=== PATIENT | male | born 1945 | race Hispanic/Latino ===

== ENCOUNTER 2021-08-17 10:34 | Inpatient (IN) | payer OTHER ==
--- OUTSIDE RECORDS SUMMARY | 2021-08-17 10:37 | XMS REPORT | Continuity of Care Document ---
:1945 Author Organization [facility] t Address [facility] [address] [place] [address] Care Team Providers Name Role Phone PCP, DOES NOT HAVE A Primary Care Physician Unavailable Doctor Unassigned, Name Attending Clinician Unavailable Nellie LR, A Attending Clinician Unavailable ASAMOA Attending Clinician Unavailable ASAMOA Attending Clinician Unavailable Vu BAHENA Attending Clinician ASAMOA Admitting Clinician Unavailable Payers Payer Name Policy Type Policy Number Effective Date Expiration Date S ource Problems Condition Condition Condition Status Onset Resolution Last Treating Co mments Source Name Details Category Date Date Treatment Clinician Date Gastroente Gastroente Disease Active 2020-04 U nivers ritis ritis 16 ity of 00:00: [address] Allergies, Adverse Reactions, Alerts Allergy Allergy Status Severity Reaction(s) Onset Inactive Treating Comm ents Source Name Type Date Date Clinician [place] DRUG Active Med Hives 2020-04 Univers IN INGREDI 2-16 ity of 00:00: [address] Penicill Drug Active Hives 2020-04 Univers in Allergy -16 ity of 00:00: [address] Social History Social Habit Start Date Stop Date Quantity Comments Source Exposure to Not sure University SARS-CoV-2 [facility] (event) Branch Tobacco Comment 2021-04-02 2021-04-02 pt quit smoking Univ ersity of 00:00:00 00:00:00 48 years ago [facility] [place] Tobacco use and 2021-03-31 2021-03-31 Never used Universit y of exposure 00:00:00 00:00:00 [facility] Sex Ass[birth year] Universit y of 00:00:00 00:00:00 [facility] Smoking Status Start Date Stop Date Source Former smoker 2021-03-31 00:00:00 2021-03-31 00:00:00 [facility] Medications Ordered Filled Start Stop Current Ordering Indication Dosage Frequency Signature Comments Components Source Medication Medication Date Date Medication? Clinician (SIG) Name Name andrew 2020-04- No [id number] 325mg Take 1 Un devaughn sulfate 325 2-18 -18 tablet by it y of mg (65 mg 00:00: 05:59 mouth [place] iron) 00 :00 daily for Medical tablet 30 days. Branch ferrous 2020-04- No [id number] 325mg Take 1 Un devaughn sulfate 325 2-18 -18 tablet by it y of mg (65 mg 00:00: 05:59 mouth [place] iron) 00 :00 daily for Medical tablet 30 days. Branch ferrous 2020-04- No [id number] 325mg Take 1 Un devaughn sulfate 325 2-18 -18 tablet by it y of mg (65 mg 00:00: 05:59 mouth [place] iron) 00 :00 daily for Medical tablet 30 days. Branch enoxaparin 2020-04 Yes 40mg 40 mg, Unive rs (LOVENOX) 2-17 Subcutaneo ity of injection 15:00[place] 40 [place] 00 First dose Medical on [place] Branch 04/01/21 at 0900, Until Discontinu ed, Routine Sliding 2020-04 Yes Subcutaneo Univ ers Scale 2-17 us, TID ity of Insulin - 03:00: MEALS+HS, [place] Lispro 00 First dose Medical (HumaLOG) + on Sun Branch Fsbg 03/31/21 Testing at 2100, Until Discontinu ed, Routine NaCl 0.9% 2020-04 Yes 1000mL at 125 Univ ers (NS) IV 2-17 mL/hr, IV ity of infusion 00:45: [place]fusion[place] 1[place]000 [place] 00 CONTINUOUS Medic al , Starting Branch on Sun03/31/21 at 1845, Until Discontinu ed, Routine ondansetron 2020-04 Yes 4mg 4 mg, Slow Univers (ZOFRAN 2-17 IV Push, ity of (PF)) 00:31: Q6HPRN, [place] injection 4 41 Starting Medi binh mg on Sun Branch 03/31/21 at 1831, Until Discontinu ed, Routine, Nausea and Vomiting (N/V) acetaminoph 2020-04 Yes 650mg 650 mg, Un devaughn en 2-17 Oral, ity of (TYLENOL) 00:31: Q6HPRN, [place] tablet 650 41 Starting Medic al mg on [place] Branch 03/31/21 at 1831, Until Discontinu ed, Routine, Pain (scale 1-3) HYDROcodone 2020-04 No 1{tbl} 1 tablet, Univers -acetaminop 2-17 - Oral, ity of hen (NORCO 00:31: 00:30 Q6HPRN, [place] 5) 5-325 mg 41 :41 Starting Medi binh tablet 1 on [place] Branch tablet 03/31/21 at 1831, Until 04/02/21 at 1830, Routine, Pain (scale 4-6) Vital Signs Vital Name Observation Time Observation Value Comments Source Systolic blood 2021-04-02 13:40:00 118 mm[Hg] Univer sity of pressure [facility] Diastolic blood 2021-04-02 13:40:00 68 mm[Hg] [facility] Heart rate 2021-04-02 13:40:00 73 /min [facility] Body temperature 2021-04-02 13:40:00 36.72 Loan [facility] Respiratory rate 2021-04-02 13:40:00 17 /min [facility] Oxygen saturation in 2021-04-02 13:40:00 99 /min [facility] Arterial blood by [facility] Pulse oximetry Branch Body weight 2021-04-02 09:27:00 73.5 kg [facility] BMI 2021-04-02 09:27:00 23.93 kg/m2 [facility] Body height 2021-03-31 22:39:00 175.3 cm [facility] Procedures Procedure Date / Time Performing Clinician Source Performed EXTERNAL PROVIDER 2021-04-25 06:01:00 Doctor Unassigned, No Univ [facility] RECORDS Name [facility] POCT GLUCOSE 2021-04-02 13:43:00 Melo White [place] (AUTOMATED) [facility] POCT GLUCOSE 2021-04-02 02:24:00 [facility] (AUTOM[facility] Medical [place] POCT GLUCOSE 2021-04-01 23:18:00 [facility] (AUTOMATED) [facility] FERRITIN SERUM 2021-04-01 18:27:00 [facility]rademsjaime [facility] VITAMIN B12, LEVEL 2021-04-01 18:27:00 Andrademsjaime [facility] Medical [place] FOLATE 2021-04-01 18:27:00 Andrademsjaime [facility] IRON PANEL 2021-04-01 18:27:00 [facility] CLOSTRIDIUM DIFFICILE 2021-04-01 18:27:00 Lorri Whiteshua [facility] TOXIN [facility] POCT GLUCOSE 2021-04-01 17:43:00 Vu [facility] (AUTOMATED) [facility] POCT GLUCOSE 2021-04-01 13:42:00 Vu Leonides [facility] (AUTOMATED) [facility] BASIC METABOLIC PANEL 2021-04-01 10:01:00 Leonides Womack [facility] (NA, K, CL, CO2, Medical Branch GLUCOSE, BUN, CREATININE, CA) CBC WITH DIFF 2021-04-01 10:00:00 Vu [facility] POCT GLUCOSE 2021-04-01 03:24:00 Leonides Womack [facility] (AUTOMATED) [facility] CBC WITH DIFF 2021-04-01 02:54:00 Vu [facility] BASIC METABOLIC PANEL 2021-04-01 02:53:00 Leonides Womack [facility] (NA, K, CL, CO2, Medical Branch GLUCOSE, BUN, CREATININE, CA) Encounters Start End Encounter Admission Attending Care Care Encounter Source Date/Time Date/Time Type Type Clinicians Facility Department ID 2021-04-25 2021-04-25 Orders Doctor HALL [id number] 00:00:00 00:00:00 Only Unassigned, STEPHANIE [id number] ity of [facility] [id number] [place] [id number] [facility] 009 Branch 2021-04-04 2021-04-04 Transition KERI Ballard [id number] Univers 00:00:00 00:00:00 of Care Musa CERNA [id number] [id number] [id number] [facility] 403 Branch 2021-03-31 2021-04-02 Inpatient U MELO WHITE [facility] ROSS 1 [id number] Univers 16:22:00 10:37:00 [facility] [place] [facility] 2021-03-31 2021-04-02 [facility] Leonides Womack [facility] 1.2.84 [id number] Univers 16:22:00 10:37:00 Encounter Serafin Melo [facility] [id number] [place] [facility] [phone] [address] ([facility]) Results Test Description Test Time Test Comments Results Result Comments Source POCT GLUCOSE (AUTOMATED) 2021-04-02 15:19:24 Test Item Value Reference Range Interpretation Comme nts POCT GLU (test code = 0844519173) 117 mg/dL 70-110 H Lab Interpretation (test code = 01544-6) [facility] 02:33:23 Test Item Value Reference Range Interpretation Comments POCT GLU (test code = 2436052836) 122 mg/dL 70-110 H Lab Interpretation (test code = Abnormal 62290-7) [facility] 23[facility]56:45 Test Item Value Reference Range Interpretation Comments FOLATE SER (test code = 10.5 ng/mL 3.0-20.0 9525801082) Lab Interpretation (test code = Normal 38258-2) [facility], [id number] 23:46:04 Test Item Value Reference Range Interpretation Comments VIT B12 (test code = 726 pg/mL 240-930 6491465885) SHILPI (test code = SHILPI) Biotin has been reported to cause a positive bias, interpret results relative to patient's use of biotin. Lab Interpretation (test Normal code = 56199-4) [facility] GLUCOSE (AUTOMATED)2021-04-01 23:24:57 Test Item Value Reference Range Interpretation Comments POCT GLU (test code = 7817822823) 147 mg/dL 70-110 H Lab Interpretation (test code = Abnormal 57596-2) [facility] [id number] 20:10:51 Test Item Value Reference Range Interpretation Comments FERRITIN (test code = 11.6 ng/mL 18.0-464.0 L 7360178658) SHILPI (test code = SHILPI) Biotin has been reported to cause a negative bias, interpret results relative to patient's use of biotin. Lab Interpretation (test Abnormal code = 40535-7) [facility] [id number] 19:44:22 Test Item Value Reference Range Interpretation Comments IRON (test code = 0667273997) 17 ug/dL 50-160 L TIBC (test code = 9480659689) 414 ug/dL 250-410 H % FE SAT (test code = 4981541265) 4 % 20-50 L Lab Interpretation (test code = Abnormal 80985-8) [facility] GLUCOSE (AUTOMATED)2021-04-01 17:45:12 Test Item Value Reference Range Interpretation Comments POCT GLU (test code = 7820567993) 115 mg/dL 70-110 H Lab Interpretation (test code = Abnormal 53917-8) [facility] GLUCOSE (AUTOMATED)2021-04-01 14:31:40 Test Item Value Reference Range Interpretation Comments POCT GLU (test code = 6325326641) 83 mg/dL 70-110 Lab Interpretation (test code = Normal 21345-5) [facility] Metabolic Panel (NA, K, CL, CO2, GLUCOSE, BUN, CREATININE, CA)2021-04-01 10:57:18 Test Item Value Reference Range Interpretation Comments NA (test code = 134 mmol/L 135-145 L 3680473977) K (test code = 3.6 mmol/L 3.5-5.0 0050309447) CL (test code = 110 mmol/L 98-108 H 8030385304) CO2 TOTAL (test code = 12 mmol/L 23-31 L 1737674707) AGAP (test code = 2-16 2761471080) BUN (test code = 34 mg/dL 7-23 H 1776713017) GLUCOSE (test code = 67 mg/dL 70-110 L 6653852585) CREATININE (test code = 1.41 mg/dL 0.60-1.25 H 8079176631) CALCIUM (test code = 7.5 mg/dL 8.6-10.6 L 8335583747) eGFR (test code = mL/min/1.73m2 6451971107) SHILPI (test code = SHILPI) Association of Glomerular Filtration Rate (GFR) and Staging of Kidney Disease* + --+ --+ ------+| GFR (mL/min/1.73 m2) ?| With Kidney Damage ?| ?Without Kidney Damage+ --------+ --------+ +| ?>90 ?| ?Stage one ?| ? Normal ?+ ---+ ---+ -------+| ?60-89 ?| ?Stage two ?| ? Decreased GFR ? + --+ --+ ------+| ?30-59 ?| ?Stage three ?| ? Stage three ? + --+ --+ ------+| ?15-29 ?| ?Stage four ? | ? Stage four ?+ ---+ ---+ -------+| ?<15 (or dialysis) ? ?| ?Stage five ? | ? Stage five ?+ ---+ ---+ -------+ *Each stage assumes the associated GFR level has been in effect for at least three months. ?Stages 1 to 5, with or without kidney disease, indicate chronic kidney disease. Notes: Determination of stages one and two (with eGFR >59mL/min/1.73 m2) requires estimation of kidney damage for at least three months as defined by structural or functional abnormalities of the kidney, manifested by either:Pathological abnormalities or Markers of kidney damage (including abnormalities in the composition of the blood or urine or abnormalities in imaging tests). Lab Interpretation Abnormal (test code = 66401-4) [facility] with [id number] 10:47:18 Test Item Value Reference Range Interpretation Comments WBC (test code = See_Comment [Automated 6690-2) message] The sy stem which generated this result transmitted reference range : 4.20 - 10.70 10*3/?L. The reference range was not used to interpret this result as normal/abnormal . RBC (test code = See_Comment L [Automated 789-8) message] The sy stem which generated this result transmitted reference range : 4.26 - 5.52 10*6/?L. The reference range was not used to interpret this result as normal/abnormal . HGB (test code = 8.7 g/dL 12.2-16.4 L 718-7) HCT (test code = 28.3 % 38.4-49.3 L 4544-3) MCV (test code = 72.9 fL 81.7-95.6 L 787-2) MCH (test code = 22.4 pg 26.1-32.7 L 785-6) MCHC (test code = 30.7 g/dL 31.2-35.0 L 786-4) RDW-SD (test code = 44.8 fL 38.5-51.6 73861-6) RDW-CV (test code = 17.0 % 12.1-15.4 H 788-0) PLT (test code = See_Comment [Automated 777-3) message] The sy stem which generated this result transmitted reference range : 150 - 328 10*3/ ?L. The reference r tyesha was not used to interpret this result as normal/abnormal . MPV (test code = 10.9 fL 9.8-13.0 76236-6) NRBC/100 WBC (test See_Comment [Automat ed code = 2986824001) message] The system which generated this result transmitted reference range : 0.0 - 10.0 /100 WBCs. The refer ence range was not u sed to interpret th is result as normal/abnormal . NRBC x10^3 (test code <0.01 See_Comment [Auto mated = 1237246474) message] The s ystem which generated this result transmitted reference range : 10*3/?L. The reference range was not used to interpret this result as normal/abnormal . GRAN MAT (NEUT) % 51.0 % (test code = 770-8) IMM GRAN % (test code 0.20 % = 0893632714) LYMPH % (test code = 33.6 % 736-9) MONO % (test code = 13.8 % 5905-5) EOS % (test code = 0.9 % 713-8) BASO % (test code = 0.5 % 706-2) GRAN MAT x10^3(ANC) 2.26 10*3/uL 1.99-6.95 (test code = 0261139717) IMM GRAN x10^3 (test <0.03 0.00-0.06 code = 7035170532) LYMPH x10^3 (test code 1.49 10*3/uL 1.09-3.23 = 731-0) MONO x10^3 (test code 0.61 10*3/uL 0.36-1.02 = 742-7) EOS x10^3 (test code = 0.04 10*3/uL 0.06-0.53 L 711-2) BASO x10^3 (test code <0.03 0.01-0.09 = 704-7) Lab Interpretation Abnormal (test code = 92362-1) [facility] 03:42:00 Test Item Value Reference Range Interpretation Comments POCT GLU (test code = 8496300554) 107 mg/dL 70-110 Lab Interpretation (test code = Normal 68165-6) [facility] METABOLIC PANEL (NA, K, CL, CO2, GLUCOSE, BUN, CREATININE, CA)2021-04-01 03:23:24 Test Item Value Reference Range Interpretation Comments NA (test code = 135 mmol/L 135-145 6552193385) K (test code = 3.7 mmol/L 3.5-5.0 9662285573) CL (test code = 107 mmol/L 98-108 5153258561) CO2 TOTAL (test code = 14 mmol/L 23-31 L 4495664117) AGAP (test code = 2-16 4352157677) BUN (test code = 42 mg/dL 7-23 H 4277521828) GLUCOSE (test code = 117 mg/dL 70-110 H 7715580291) CREATININE (test code = 1.65 mg/dL 0.60-1.25 H 2674493704) CALCIUM (test code = 7.7 mg/dL 8.6-10.6 L 3070736632) eGFR (test code = mL/min/1.73m2 9674615594) SHILPI (test code = SHILPI) Association of Glomerular Filtration Rate (GFR) and Staging of Kidney Disease* + --+ --+ ------+| GFR (mL/min/1.73 m2) ?| With Kidney Damage ?| ?Without Kidney Damage+ --------+ --------+ +| ?>90 ?| ?Stage one ?| ? Normal ?+ ---+ ---+ -------+| ?60-89 ?| ?Stage two ?| ? Decreased GFR ? + --+ --+ ------+| ?30-59 ?| ?Stage three ?| ? Stage three ? + --+ --+ ------+| ?15-29 ?| ?Stage four ? | ? Stage four ?+ ---+ ---+ -------+| ?<15 (or dialysis) ? ?| ?Stage five ? | ? Stage five ?+ ---+ ---+ -------+ *Each stage assumes the associated GFR level has been in effect for at least three months. ?Stages 1 to 5, with or without kidney disease, indicate chronic kidney disease. Notes: Determination of stages one and two (with eGFR >59mL/min/1.73 m2) requires estimation of kidney damage for at least three months as defined by structural or functional abnormalities of the kidney, manifested by either:Pathological abnormalities or Markers of kidney damage (including abnormalities in the composition of the blood or urine or abnormalities in imaging tests). Lab Interpretation Abnormal (test code = 70083-0) [facility] WITH [id number] 03:04:00 Test Item Value Reference Range Interpretation Comments WBC (test code = See_Comment [Automated 8672-2) message] The sy stem which generated this result transmitted reference range : 4.20 - 10.70 10*3/?L. The reference range was not used to interpret this result as normal/abnormal . RBC (test code = See_Comment L [Automated 099-8) message] The sy stem which generated this result transmitted reference range : 4.26 - 5.52 10*6/?L. The reference range was not used to interpret this result as normal/abnormal . HGB (test code = 8.9 g/dL 12.2-16.4 L 718-7) HCT (test code = 28.5 % 38.4-49.3 L 4544-3) MCV (test code = 72.9 fL 81.7-95.6 L 787-2) MCH (test code = 22.8 pg 26.1-32.7 L 785-6) MCHC (test code = 31.2 g/dL 31.2-35.0 786-4) RDW-SD (test code = 43.8 fL 38.5-51.6 04325-0) RDW-CV (test code = 17.0 % 12.1-15.4 H 788-0) PLT (test code = See_Comment [Automated 777-3) message] The sy stem which generated this result transmitted reference range : 150 - 328 10*3/ ?L. The reference r tyesha was not used to interpret this result as normal/abnormal . MPV (test code = 9.2 fL 9.8-13.0 L 91521-9) NRBC/100 WBC (test See_Comment [Automat ed code = 6200849590) message] The system which generated this result transmitted reference range : 0.0 - 10.0 /100 WBCs. The refer ence range was not u sed to interpret th is result as normal/abnormal . NRBC x10^3 (test code <0.01 See_Comment [Auto mated = 2403094668) message] The s ystem which generated this result transmitted reference range : 10*3/?L. The reference range was not used to interpret this result as normal/abnormal . GRAN MAT (NEUT) % 69.7 % (test code = 770-8) IMM GRAN % (test code 0.20 % = 4762637858) LYMPH % (test code = 17.1 % 736-9) MONO % (test code = 12.6 % 5905-5) EOS % (test code = 0.2 % 713-8) BASO % (test code = 0.2 % 706-2) GRAN MAT x10^3(ANC) 3.21 10*3/uL 1.99-6.95 (test code = 6787739546) IMM GRAN x10^3 (test <0.03 0.00-0.06 code = 6153808497) LYMPH x10^3 (test code 0.79 10*3/uL 1.09-3.23 L = 731-0) MONO x10^3 (test code 0.58 10*3/uL 0.36-1.02 = 742-7) EOS x10^3 (test code = <0.03 0.06-0.53 L 711-2) BASO x10^3 (test code <0.03 0.01-0.09 = 704-7) Lab Interpretation Abnormal (test code = 09807-2) [facility]"
[2021-08-17 11:21] LABS: Absolute Lymphocytes (CBC) 1.9 K/uL (0.7-4.9); Hematocrit 26.3 % (39.6-49.0); Lymphocytes % 34.9 % (15.3-44.8); MPV 8.1 fL (7.6-11.3); RBC Red Blood Cell Count 3.89 M/uL (4.33-5.43)
[2021-08-17 11:49] LABS: Magnesium 1.5 mg/dL (1.8-2.4); Potassium 4.4 mmol/L (3.5-5.1); Troponin High Sensitivity 37.2 pg/mL (<58.9)
--- NOTE | 2021-08-17 12:04 | RAD REPORT ---
EXAM DESCRIPTION: RAD - Chest Single View - 08/17/2021 11:31 am CLINICAL HISTORY: Chest pain COMPARISON: Two view chest 07/17/2011 TECHNIQUE: AP portable chest image was obtained 08/17/2021 11:31 am . FINDINGS: Lungs are clear. Interstitial pattern is not substantially different from the comparison. No hilar mass or lymphadenopathy. Heart and vasculature are normal. No measurable pleural effusion an d no pneumothorax. No acute bony abnormality seen. No acute aortic findings suspected. IMPRESSION: No acute cardiopulmonary process. No significant change from the remote 2011 comparison.
[2021-08-17 13:38] LABS: Anisocytosis 2+; Blood Morphology Comment NOTED (NOT SEEN); Hypochromasia 1+; Platelet Estimate ADEQ; Poikilocytosis 1+; White Blood Cell Scan OK (OK)
[2021-08-17 13:39] LABS: Elliptocytes 1+; Teardrop Cell 1+
--- NOTE | 2021-08-17 13:39 | RAD REPORT ---
EXAM DESCRIPTION: CT - Chest For Pe Angio - 08/17/2021 1:26 pm CLINICAL HISTORY: Pulmonary embolism (PE) suspected, positive D-dimer COMPARISON: Chest Single View dated 08/17/2021 TECHNIQUE: Dynamically enhanced 3 mm thick images of the chest were obtained during administration o f approximately 150mL Isovue 370 IV contrast. Coronal and oblique MIP reconstruction images were gene rated and reviewed. Exam utilizes a protocol to evaluate the pulmonary arterial tree. All CT scans are performed using dose optimization technique as appropriate and may include automated exposure control or mA/KV adjustment according to patient size. FINDINGS: No pulmonary emboli are identified. The aorta as imaged shows no acute or suspicious finding. No pericardial thickening or effusion. Hear t size is upper normal. 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 CT sensitivity is limited . This can be followed with cardiac echo for confirmation or exclusion. Coronary artery calcification s are present. No acute infiltrate and no suspicious mass identifiable. There are a few very small scattered areas o f ground-glass opacification in the lower lobes probably atelectasis rather than infiltrate. A 5 mm n oncalcified juxtapleural nodule is present in the lower right lung field at the confluence of the suad or and minor fissures (image 69). No pleural effusion or pleural thickening. No mediastinal or hilar suspicious masses. No chest wall masses or abnormal axillary lymphadenopathy. IMPRESSION: No pulmonary emboli identified. Left ventricular myocardial hypertrophy is evident though CT has limited sensitivity. Follow-up can b e obtained as clinical findings warrant. Minimal ground-glass opacities in the lower lung chiang probably atelectasis rather than edema or inf iltrate. No consolidation or suspicious mass. A 5 mm noncalcified juxtapleural nodule is present in the lower right lung field. No specific follow- up recommendations for a single nodule of this size.
--- NOTE | 2021-08-17 14:19 | ER ---
Nurse's Notes [facility] Name: Abdoul Hudson Age: 76 yrs Sex: Male : 1945 Arrival Date: 08/17/2021 Time: 10:36 Bed 5 Private MD: Diagnosis: Atherosclerotic heart disease of [place] coronary artery with angina pectoris;Chest pain, unspecified Presentation: 08/17 10:45 Chief complaint: Patient states: Intermittent chest pain x 1 week ago. Pt currently aa5 denies chest pain. 10:45 Onset of symptoms was July 2021. aa5 10:45 Acuity: MARICRUZ 3 aa5 10:45 Coronavirus screen: At this time, the client does not indicate any symptoms associated aa5 with coronavirus-19. Ebola Screen: No symptoms or risks identified at this time. Initial Sepsis Screen: Does the patient meet any 2 criteria? No. Patient's initial sepsis screen is negative. Does the patient have a suspected source of infection? No. Patient's initial sepsis screen is negative. Risk Assessment: Do you want to hurt yourself or someone else? Patient reports no desire to harm self or others. 10:45 Method Of Arrival: Ambulatory aa5 Historical: - Allergies: 10:57 PENICILLINS; aa5 - PMHx: 10:57 Hypertensive disorder; Diabetes mellitus; PTSD; Hypercholesterolemia; GERD; Carpal aa5 Tunnel; Anxiety; - PSHx: 10:57 Appendectomy; Cholecystectomy; aa5 - Immunization history:: Flu vaccine is up to date. - Social history:: Smoking status: Patient denies any tobacco usage or history of. - Family history:: not pertinent. - Hospitalizations: : No recent hospitalization is reported. Screenin:58 Abuse screen: Denies threats or abuse. Denies injuries from another. Nutritional ph screening: No deficits noted. Tuberculosis screening: No symptoms or risk factors identified. Fall Risk None identified. Assessment: 11:00 General: Appears in no apparent distress. comfortable, well groomed, Behavior is calm, ph cooperative, appropriate for age, Denies fever, feeling ill. Pain: Denies pain. Neuro: [place] Agitation-Sedation Scale (RASS): 0 - Alert and Calm Level of Consciousness is awake, alert, obeys commands, Oriented to person, place, time, situation. 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 Respiratory: Airway is patent Respiratory effort is even, unlabored, Respiratory pattern is regular, symmetrical. GI: No signs and/or symptoms were reported involving the gastrointestinal system. Derm: Skin is intact, is healthy with good turgor, Skin is pink, warm \\T\\ dry. Musculoskeletal: Circulation, motion, and sensation intact. Range of motion: intact in all extremities. 12:21 Reassessment: Patient appears in no apparent distress at this time. Patient and/or ph family updated on plan of care and expected duration. Pain level reassessed. Patient is alert, oriented x 3, equal unlabored respirations, skin warm/dry/pink. 13:30 Reassessment: Patient appears in no apparent distress at this time. Patient and/or ph family updated on plan of care and expected duration. Pain level reassessed. Patient is alert, oriented x 3, equal unlabored respirations, skin warm/dry/pink. 14:30 Reassessment: Patient appears in no apparent distress at this time. Patient and/or ph family updated on plan of care and expected duration. Pain level reassessed. Patient is alert, oriented x 3, equal unlabored respirations, skin warm/dry/pink. 16:00 Reassessment: Patient appears in no apparent distress at this time. Patient and/or ph family updated on plan of care and expected duration. Pain level reassessed. Patient is alert, oriented x 3, equal unlabored respirations, skin warm/dry/pink. 16:58 Reassessment: Patient appears in no apparent distress at this time. Patient and/or ph family updated on plan of care and expected duration. Pain level reassessed. Patient is alert, oriented x 3, equal unlabored respirations, skin warm/dry/pink. Vital Signs: 10:45 BP 146 / 77; Pulse 81; Resp 16 S; Temp 98.2(O); Pulse Ox 100% on R/A; Weight 78.93 kg aa5 (R); Height 5 ft. 9 in. (175.26 cm) (R); Pain 0/10; 11:35 BP 140 / 81; Pulse 71; Resp 16; Pulse Ox 99% on R/A; mh5 12:29 BP 142 / 66; Pulse 74; Resp 18; Pulse Ox 100% on R/A; ph 13:30 BP 141 / 79; Pulse 81; Resp 18; Pulse Ox 100% on R/A; ph 14:30 BP 134 / 75; Pulse 62; Resp 14; Pulse Ox 99% on R/A; ph 16:00 BP 138 / 78; Pulse 69; Resp 16; Pulse Ox 98% on R/A; ph 17:01 BP 142 / 80; Pulse 66; Resp 16; Temp 97.9; Pulse Ox 99% on R/A; ph 10:45 Body Mass Index 25.70 (78.93 kg, 175.26 cm) [facility] ED Course: 10:36 Patient arrived in ED. as 10:45 Alex Arriaga MD is Attending Physician. rn 10:45 Arm band placed on Patient placed in an exam room, on a stretcher. [facility] 10:56 Triage completed. aa 10:56 Patient has correct armband on for positive identification. Bed in low position. Call [facility] light in reach. Side rails up X 1. Warm blanket given. Pillow given. tax director on. Pulse ox on. NIBP on. 10:56 EKG done, by ED staff, reviewed by Alex Arriaga MD. [facility] 11:14 Basic Metabolic Panel Sent. [facility] 11:15 CBC with Diff Sent. [facility] 11:15 D-Dimer Sent. [facility] 11:15 Magnesium Sent. [facility] 11:15 NT PRO-BNP Sent. [facility] 11:15 Troponin HS Sent. [facility] 11:16 Initial lab(s) drawn, by pa, sent to lab. Inserted saline lock: 20 gauge in left [facility] antecubital area, using aseptic technique. Blood collected. 11:21 Laura Barreto, RN is Primary Nurse. [facility] 11:33 XRAY Chest (1 view) In Process Unspecified. EDMS 13:28 CT Chest For PE Angio In Process Unspecified. EDMS 14:19 Cheo Anthony is Hospitalizing Provider. rn 14:39 SARS-COV-2 RT PCR (Document "Date of Onset" if Symptomatic) Sent. [facility] 14:39 COVID swab sent to lab. [facility] 17:00 No provider procedures requiring assistance completed. Patient admitted, IV remains in ph place. Patient maintains SpO2 saturation greater than 95% on room air. Administered Medications: 14:45 Drug: Aspirin 325 mg Route: PO; ph 15:22 Follow up: Response: No adverse reaction ph Outcome: 14:19 Decision to Hospitalize by Provider. rn 17:00 Admitted to Tele accompanied by tech, via wheelchair, room 229, with chart. ph 17:00 Condition: stable 17:00 Instructed on the need for admit. 17:42 Patient left the ED. jh6 Signatures: Dispatcher [employer] Brandy Hull Roman, MD MD rn Calderon, Audri, RN RN Kyung Beyer RN RN ph Martinez, Maria [facility] Laura Barreto RN RN jh6 Corrections: (The following items were deleted from the chart) 16:59 16:58 General: Appears ph ph
--- NOTE | 2021-08-17 14:19 | EDPHYS ---
Physician Documentation [facility] Name: Abdoul Hudson Age: 76 yrs Sex: Male : 1945 Arrival Date: 08/17/2021 Time: 10:36 Bed 5 Private MD: ED Physician Alex Arriaga HPI: 08/17 12:32 This 76 yrs old Male presents to ER via Ambulatory with complaints of Chest rn Pain. 12:32 The patient or guardian reports chest pain that is located primarily in the substernal rn area. Onset: 1 week(s) ago. The pain does not radiate. Associated signs and symptoms: Pertinent positives: shortness of breath, Pertinent negatives: abdominal pain, diaphoresis, syncope, vomiting. The chest pain is described as a heaviness. Duration: The patient or guardian reports multiple episodes, the episodes last approximately 1 minute(s). Modifying factors: The symptoms are alleviated by rest, the symptoms are aggravated by exertion. Severity of pain: At its worst the pain was mild in the emergency department the pain has improved. The patient has not experienced similar symptoms in the past. The patient has been recently seen by a physician:. Patient sent by [facility] for chest pain, intermittent over the last week, worse with exertion, does not happen at rest, associated with shortness of breath and dizziness. Reports history of anemia and takes vitamin B12. Denies blood in the stool. Reports episodes of chest pain last a few seconds maybe up to a minute and resolve with rest.. 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 - Social history:: Smoking status: Patient denies any tobacco usage or history of. - Family history:: not pertinent. - Hospitalizations: : No recent hospitalization is reported. ROS: 12:32 Constitutional: Negative for fever, chills, and weight loss, Eyes: Negative for injury, rn pain, redness, and discharge, Neck: Negative for injury, pain, and swelling, Cardiovascular: Negative for palpitations, and edema, Respiratory: Negative for cough, wheezing, and pleuritic chest pain, Abdomen/GI: Negative for abdominal pain, nausea, vomiting, diarrhea, and constipation, Back: Negative for injury and pain, MS/Extremity: Negative for injury and deformity, Skin: Negative for injury, rash, and discoloration, Neuro: Negative for headache, weakness, numbness, tingling, and seizure. Exam: 12:32 Constitutional: This is a well developed, well nourished patient who is awake, alert, rn and in no acute distress. Head/Face: Normocephalic, atraumatic. Eyes: pale conjunctivae Cardiovascular: Regular rate and rhythm. No pulse deficits. Respiratory: No increased work of breathing, no retractions or nasal flaring. Abdomen/GI: Soft, non-tender Skin: Warm, dry with normal turgor. Normal color with no rashes, no lesions, and no evidence of cellulitis. MS/ Extremity: Pulses equal, no cyanosis. Neurovascular intact. Full, normal range of motion. Equal circumference. Neuro: Awake and alert, GCS 15, oriented to person, place, time, and situation. Cranial nerves II-XII grossly intact. Motor strength 5/5 in all extremities. Sensory grossly intact. Cerebellar exam normal. Vital Signs: 10:45 BP 146 / 77; Pulse 81; Resp 16 S; Temp 98.2(O); Pulse Ox 100% on R/A; Weight 78.93 kg aa5 (R); Height 5 ft. 9 in. (175.26 cm) (R); Pain 0/10; 11:35 BP 140 / 81; Pulse 71; Resp 16; Pulse Ox 99% on R/A; mh5 12:29 BP 142 / 66; Pulse 74; Resp 18; Pulse Ox 100% on R/A; ph 13:30 BP 141 / 79; Pulse 81; Resp 18; Pulse Ox 100% on R/A; ph 14:30 BP 134 / 75; Pulse 62; Resp 14; Pulse Ox 99% on R/A; ph 16:00 BP 138 / 78; Pulse 69; Resp 16; Pulse Ox 98% on R/A; ph 17:01 BP 142 / 80; Pulse 66; Resp 16; Temp 97.9; Pulse Ox 99% on R/A; ph 10:45 Body Mass Index 25.70 (78.93 kg, 175.26 cm) aa MDM: 10:45 Patient medically screened. rn 14:12 Differential diagnosis: acute myocardial infarction, acute pericarditis, coronary rn artery disease congestive heart failure pleurisy, pneumothorax, pulmonary embolus, stable angina, unstable angina. The patient was given aspirin in the Emergency Department. 14:12 HEART Score: History: Highly Suspicious (2), ECG: Normal (0), Age: > or = 65 years (2), rn Risk Factors: > or = 3 Risk factors for atherosclerotic disease (2), [Hypercholesterolemia] [Hypertension] [DM] Troponin: < or = 1 x Normal Limit (0), Total Score = 6. 14:14 Data reviewed: vital signs, nurses notes, lab test result(s), EKG, radiologic studies. rn 14:18 Counseling: I had a detailed discussion with the patient and/or guardian regarding: the rn historical points, exam findings, and any diagnostic results supporting the discharge/admit diagnosis, lab results, radiology results, the need for further work-up and treatment in the hospital. Response to treatment: the patient's symptoms have mildly improved after treatment, and as a result, I will admit patient. Admission orders: after a detailed discussion of the patient's condition and case, the admit orders are written by me. ED course: Pt with numerous risk factors, story of exertional chest pain and angina, likely magnified by anemia, and coronary calcifications on CT. Will admit for further cardiac evaluation.. 08/17 11:03 Order name: Basic Metabolic Panel; Complete Time: 12:23 rn 08/17 11:03 Order name: CBC with Diff; Complete Time: 13:41 rn 08/17 11:03 Order name: D-Dimer; Complete Time: 13:41 rn 08/17 11:03 Order name: Magnesium; Complete Time: 12:23 rn 08/17 11:03 Order name: NT PRO-BNP; Complete Time: 12:23 rn 08/17 11:03 Order name: Troponin HS; Complete Time: 12:23 rn 08/17 11:03 Order name: XRAY Chest (1 view); Complete Time: 12:23 rn 08/17 11:03 Order name: EKG; Complete Time: 11:03 rn 08/17 11:03 Order name: Cardiac monitoring; Complete Time: 11:14 rn 08/17 11:25 Order name: CBC Smear Scan; Complete Time: 13:41 EDMS 08/17 12:59 Order name: CT Chest For PE Angio; Complete Time: 13:41 rn 08/17 14:15 Order name: SARS-COV-2 RT PCR (Document "Date of Onset" if Symptomatic) rn 08/17 14:39 Order name: Diet Heart Healthy; Complete Time: 14:40 mh5 08/17 11:03 Order name: EKG - Nurse/Tech; Complete Time: 11:14 rn 08/17 11:03 Order name: IV Saline Lock; Complete Time: 11:14 rn 08/17 11:03 Order name: Labs collected and sent; Complete Time: 11:14 rn 08/17 11:03 Order name: O2 Per Protocol; Complete Time: 11:14 rn 08/17 11:03 Order name: O2 Sat Monitoring; Complete Time: 11:14 rn Administered Medications: 14:45 Drug: Aspirin 325 mg Route: PO; ph 15:22 Follow up: Response: No adverse reaction ph Disposition Summary: 08/17/21 14:19 Hospitalization Ordered Hospitalization Status: Observation rn Provider: Cheo Anthony rn Location: Telemetry/MedSurg (observation) rn Condition: Stable rn Problem: new rn Symptoms: have improved rn Bed/Room Type: Standard rn Room Assignment: 229(08/17/21 16:21) bd Diagnosis - Atherosclerotic heart disease of [place] coronary artery with angina pectoris rn - Chest pain, unspecified rn Forms: - Medication Reconciliation Form rn - SBAR form rn Signatures: Dispatcher [employer] EDMS Ashley Antunez bd Alex Arriaga MD MD rn Calderon, Audri, RN RN aa5 Kyung Stewart RN RN ph Corrections: (The following items were deleted from the chart) 16:21 14:19 rn bd
[2021-08-17] MEDS ORDERED: ASPIRIN EC 325 MG TABLET PO ONE (14:37)
--- NOTE | 2021-08-17 15:46 | P.HP ---
Certification for Inpatient Patient admitted to: Observation With expected LOS: <2 Midnights Practitioner: I am a practitioner with admitting privileges, knowledge of patient current condition, hospital course, and medical plan of care. Services: Services provided to patient in accordance with Admission requirements found in Title 42 Section 412.3 of the Code of Federal Regulations Patient History Date of Service: 08/17/21 Reason for admission: Chest pain and dizziness History of Present Illness: 76-year-old gentleman with a history of diabetes mellitus type 2, hypertension, GERD, hyperlipidemia was referred from the [facility] to the emergency department due to complaint of chest pain with exertion. Patient reports chest pain, dizziness and easy fatigability with exertion. He denied any chest pain at rest. He also reports dyspnea on exertion. Patient describes anterior chest pain, which nonradiating which occurs only with exertion and relieved by rest. He denied palpitation. He denied any cough. Work-up in the emergency department revealed hemoglobin of 8. Patient records from [facility] was reviewed and noted he has a history of heme positive stool. EKG done in the emergency department demonstrated normal sinus rhythm. Initial troponin is negative. Chest x-ray shows no acute disease. His D-dimer elevated. CTA thorax done is negative for pulmonary embolus and no infiltrate. Patient may be experiencing symptomatic anemia with exertional chest pain. He reports a remote history of cardiac catheterization and coronary angioplasty when he was in high school but since then have had no problem with his heart. He is a and was in [place]. Patient is hospitalized for further evaluation and management. - Past Medical/Surgical History -: Hypertension -: Hyperlipidemia -: DM type II -: GERD -: History of GI bleed -: History of hydronephrosis -: BPH -: Posttraumatic stress disorder -: Iron deficiency anemia -: Generalized anxiety disorder -: Colonoscopy - Family History Family History: Reviewed- Non-Contributory - Social History Smoking Status: Former smoker Alcohol use: No Place of Residence: Home Review of Systems Other: Except as documented, all other systems reviewed and negative. Physical Examination - Physical Exam General: Alert, In no apparent distress, Oriented x3 HEENT: Normocephalic, Mucous membr. moist/pink, EOMI, Sclerae nonicteric Neck: Supple, JVD not distended Respiratory: Clear to auscultation bilaterally, Normal air movement Cardiovascular: No edema, Regular rate/rhythm, Normal S1 S2, No murmurs Gastrointestinal: Normal bowel sounds, Soft and benign, Non-distended, No tenderness Musculoskeletal: No swelling, No tenderness Integumentary: No rashes, No erythema, No cyanosis Neurological: Normal speech, Normal strength at 5/5 x4 extr, Cranial nerves 3-12 intact Lymphatics: No axilla or inguinal lymphadenopathy - Studies Laboratory Data (last 24 hrs) 08/17/21 11:11: WBC 5.4, Hgb 8.4 L, Hct 26.3 L, Plt Count 214 08/17/21 11:11: Sodium 136, Potassium 4.4, BUN 20 H, Creatinine 1.16, Glucose 92, Magnesium 1.5 L Assessment and Plan - Problems (Diagnosis) (1) Chest pain Current Visit: Yes Status: Acute (2) Symptomatic anemia Current Visit: Yes Status: Acute (3) Diabetes mellitus type 2 in nonobese Current Visit: Yes Status: Acute (4) Essential hypertension Current Visit: Yes Status: Acute (5) Hyperlipidemia Current Visit: Yes Status: Acute - Plan Place patient under observation. Trend troponin Obtain echocardiogram I suspect symptomatic anemia-anemia causing angina. Check iron profile. Patient declining blood transfusion. We will start iron replacement once iron profile result Aspirin, metoprolol, statins, check lipid profile. Hold metformin and glipizide Insulin sliding scale for glucose management. Further management pending troponin result. - Advance Directives Does patient have a Living Will: No Does patient have a Durable POA for Healthcare: No
[2021-08-17] MEDS: INSULIN -REGULAR HUMAN 50 UNIT/0.5 ML ML SQ SCH ×2 (17:45→20:31)
[2021-08-17] MEDS ORDERED: MORPHINE 4 MG/ML SYR IV PRN (17:45)
[2021-08-17] MEDS ORDERED: NITROGLYCERIN 0.4 MG/TAB SL PRN (17:45)
[2021-08-17 18:04] VITALS: BMI 25.7
[2021-08-17 18:44] LABS: Troponin High Sensitivity 39.3 pg/mL (<58.9)
[2021-08-17] MEDS: TAMSULOSIN 0.4 MG SR CAP PO SCH (20:29)
[2021-08-17] MEDS: FINASTERIDE 5 MG TAB PO SCH (20:30)
[2021-08-17] MEDS: METOPROLOL TAR 50 MG TAB PO SCH (20:30)
[2021-08-17] MEDS: ATORVASTATIN 20 MG TAB PO SCH (20:30)
[2021-08-17 22:11] VITALS: O2SAT 98
[2021-08-17] MEDS ORDERED: MELATONIN 5 MG TABLET PO PRN (23:52)
[2021-08-18 04:33] LABS: Absolute Lymphocytes (CBC) 1.8 K/uL (0.7-4.9); Hematocrit 26.4 % (39.6-49.0); Lymphocytes % 28.2 % (15.3-44.8); MPV 8.4 fL (7.6-11.3); RBC Red Blood Cell Count 3.96 M/uL (4.33-5.43)
[2021-08-18 04:45] LABS: Potassium 4.6 mmol/L (3.5-5.1)
[2021-08-18] MEDS: INSULIN -REGULAR HUMAN 50 UNIT/0.5 ML ML SQ SCH ×4 (07:30→21:23)
[2021-08-18] MEDS: METOPROLOL TAR 50 MG TAB PO SCH ×2 (09:16→21:23)
[2021-08-18] MEDS: ASPIRIN EC 81 MG TAB PO SCH (09:16)
[2021-08-18] MEDS: ENOXAPARIN 40 MG/0.4 ML SQ SCH (09:17)
--- NOTE | 2021-08-18 12:45 | P.DS ---
Admission Date: 08/17/21 Discharge Date: 08/18/21 Disposition: ROUTINE DISCHARGE Discharge Condition: FAIR Reason for Admission: Chest pain and dizziness - Problems (1) Chest pain Current Visit: Yes Status: Acute (2) Symptomatic anemia Current Visit: Yes Status: Acute (3) Diabetes mellitus type 2 in nonobese Current Visit: Yes Status: Acute (4) Essential hypertension Current Visit: Yes Status: Acute (5) Hyperlipidemia Current Visit: Yes Status: Acute Brief History of Present Illness: 76-year-old gentleman with a history of diabetes mellitus type 2, hypertension, GERD, hyperlipidemia was referred [facility] to the emergency department due to complaint of chest pain with exertion. Patient reports chest pain, dizziness and easy fatigability with exertion. He denied any chest pain at rest. He also reports dyspnea on exertion. Patient describes anterior chest pain, which nonradiating which occurs only with exertion and relieved by rest. He denied palpitation. He denied any cough. Work-up in the emergency department revealed hemoglobin of 8. Patient records from [facility] was reviewed and noted he has a history of heme positive stool. EKG done in the emergency department demonstrated normal sinus rhythm. Initial troponin is negative. Chest x-ray shows no acute disease. His D-dimer elevated. CTA thorax done is negative for pulmonary embolus and no infiltrate. Patient may be experiencing symptomatic anemia with exertional chest pain. He reports a remote history of cardiac catheterization and coronary angioplasty when he was in high school but since then have had no problem with his heart. Patient was hospitalized for further evaluation and management. Hospital Course: Patient placed under observation on the medical floor. Troponin trended negative. He was asymptomatic during the hospital stay. He declined blood transfusion for symptomatic anemia. Iron profile checked shows iron deficiency. Patient with a prior history of Hemoccult positive stool. Patient prescribed oral iron supplementation and informed to follow-up with a luggage repairer for further evaluation for GI bleed as a cause of his anemia. Patient's exertional dyspnea and chest tightness likely secondary to symptomatic anemia. Echocardiogram done and the result is pending to be followed. Case discussed with cardiology-Dr. Reeves will plan to see him as an outpatient by next week for further evaluation. He is currently asymptomatic and deemed stable for discharge. Vital Signs/Physical Exam: Temp Pulse Resp BP Pulse Ox 97.2 F 64 18 118/66 97 08/18/21 08:00 08/18/21 08:00 08/18/21 08:00 08/18/21 08:00 08/18/21 08:00 General: Alert, In no apparent distress HEENT: Mucous membr. moist/pink Neck: JVD not distended Respiratory: Clear to auscultation bilaterally Cardiovascular: No edema, Regular rate/rhythm, Normal S1 S2, No murmurs Gastrointestinal: Normal bowel sounds, Soft and benign, Non-distended, No tenderness Integumentary: No rashes, No cyanosis Neurological: Normal strength at 5/5 x4 extr Laboratory Data at Discharge: WBC 6.4 K/uL (4.3-10.9) D 08/18/21 03:27 Hgb 8.6 g/dL (13.6-17.9) L 08/18/21 03:27 Hct 26.4 % (39.6-49.0) L 08/18/21 03:27 Plt Count 235 K/uL (152-406) 08/18/21 03:27 Sodium 137 mmol/L (136-145) 08/18/21 03:27 Potassium 4.6 mmol/L (3.5-5.1) 08/18/21 03:27 BUN 18 mg/dL (7-18) 08/18/21 03:27 Creatinine 1.23 mg/dL (0.55-1.3) 08/18/21 03:27 Glucose 120 mg/dL (74-106) H 08/18/21 03:27 Magnesium 1.5 mg/dL (1.8-2.4) L 08/17/21 11:11 Triglycerides 117 mg/dL (<150) 08/17/21 16:14 Cholesterol 210 mg/dL (<200) H 08/17/21 16:14 HDL Cholesterol 77 mg/dL (40-60) H 08/17/21 16:14 Cholesterol/HDL Ratio 2.73 08/17/21 16:14 Home Medications: Aspirin [Aspirin EC 81 MG] 81 mg PO DAILY 08/17/21 Cyanocobalamin (Vitamin B-12) [B-12] 500 mcg PO DAILY 08/17/21 Finasteride [Proscar] 5 mg PO DAILY 08/17/21 Lisinopril [Zestril] 10 mg PO DAILY 08/17/21 Metformin HCl 1,000 mg PO BID 08/17/21 Omeprazole 20 mg PO DAILY 08/17/21 Tamsulosin [Flomax*] 0.4 mg PO BEDTIME 08/17/21 glipiZIDE [Glipizide] 5 mg PO BID 08/17/21 Atorvastatin Calcium [Lipitor*] 20 mg PO BEDTIME #30 tab 08/18/21 Iron Polysaccharide Complex [Polysaccharide Iron] 150 mg PO DAILY #30 capsule 08/18/21 New Medications: Atorvastatin Calcium [Lipitor*] 20 mg PO BEDTIME #30 tab Iron Polysaccharide Complex [Polysaccharide Iron] 150 mg PO DAILY #30 capsule Physician Discharge Instructions: You will need to follow with a luggage repairer to evaluate you for gastrointestinal bleed which may be causing your anemia. Diet: ADA Activity: Ad mica Followup: NONE,NONE [Primary Care Provider] - Sergey Reeves MD [ACTIVE - CAN ADMIT] - 1 Week
--- NOTE | 2021-08-18 14:12 | EKG ---
Test Date: 2021-08-17 Test Time: 10:54:03 Jacquard Loom Card Changer: LASHELL MEASUREMENT RESULTS: Intervals: Rate: 75 DC: 162 QRSD: 86 QT: 364 QTc: 406 [place]: P: 54 DC: 162 QRS: 64 T: 58 INTERPRETIVE STATEMENTS: Normal sinus rhythm Normal ECG Compared to ECG 12/31/2009 07:53:21 No significant changes Electronically Signed On 08-18-21 14:11:38 CDT by Carmine Lundberg
--- NOTE | 2021-08-18 18:56 | CON ---
Date of Consultation: 08/18/2021 Reason For Consultation: Chest pain. History Of Present Illness: A 76-year-old male with history of diabetes, hypertension, acid reflux, dyslipidemia, sent from the [facility] due to chest pain and shortness of breath on exertion. He has been feeling dizzy as well, lightheaded. D-dimer was elevated. CTA was done and was negative and he reports a coronary angiogram when he was a teenager. He does not smoke and there is no resting ches t pain. Past Medical History: As outlined above in HPI. Medications: Refer to reconciliation sheet for detailed list. Allergies: PENICILLIN. Family History: No premature coronary artery disease or cancer. Social History: He does not smoke or drink. Does not use any drugs. Review of Systems: All systems reviewed and they were negative except for what mentioned in HPI. Physical Examination: Vital Signs: Reviewed. Head and Neck: Pupils are equal, reactive to light. Intact eye movements. No JVD. No cervical lym phadenopathy. Neck is supple. Thyroid is not enlarged. Lungs: Clear to auscultation bilaterally. No rhonchi, rales, or crackles. No accessory muscle use. Heart: Regular rate and rhythm. No extra sounds. Abdomen: Soft, nontender. Bowel sounds positive. No organomegaly. No masses or hernia. No rigidi ty or rebound. Extremities: No edema, clubbing, or cyanosis. Intact pulses. Skin: No rash noted. Neurologic: Alert, awake, oriented x3. No acute focal deficits appreciated. Investigations: Hemoglobin 8.6. Troponin x2 were negative and creatinine is 1.23. CTA of the chest , no PE. Assessment And Recommendations: 1.Chest pain, exertional, along with exertional shortness of breath. Has multiple risk factors incl uding age, dyslipidemia, diabetes, hypertension, and has some typical symptoms. I recommend to obtai n an exercise nuclear stress test. Echo was done earlier. The ejection fraction is normal. We will give further recommendations based on the stress test results. Restart the patient on baby aspirin 81 mg. 2.Hypertension. Blood pressure is controlled. Continue home medications. SR/MODL Voice ID: [id number] Report ID: [id number]
[2021-08-18] MEDS ORDERED: hydrOXYzine HCL 25 MG TAB PO ONE (21:15)
[2021-08-18] MEDS: TAMSULOSIN 0.4 MG SR CAP PO SCH (21:22)
[2021-08-18] MEDS: ATORVASTATIN 20 MG TAB PO SCH (21:23)
[2021-08-18] MEDS: FINASTERIDE 5 MG TAB PO SCH (21:23)
--- NOTE | 2021-08-19 07:23 | ECHO ---
HEIGHT: 5 ft 9 in WEIGHT: 174 lb 0 oz DATE OF STUDY: 08/18/[address]: tara dutton 2-DIMENSIONAL: YES M.MODE: YES DOPPLER: YES COLOR FLOW: YES TDS: NO PORTABLE: YES DEFINITY: NO BUBBLE STUDY: NO DIAGNOSIS: CHEST PAIN CARDIAC HISTORY: CATHERIZATION:YES SURGERY: NO PROSTHETIC VALVE: NO PACEMAKER: NO MEASUREMENTS (cm) DIASTOLIC (NORMALS) SYSTOLIC (NORMALS) IVSd 1.1 (0.6-1.2) LA Diam 2.2 (1.9-4.0) LVEF 66% LVIDd 2.9 (3.5-5.7) LVIDs 1.9 (2.0-3.5) %FS 35% LVPWd 1.2 (0.6-1.2) Ao Diam 2.2 (2.0-3.7) 2 DIMENSIONAL ASSESSMENT: RIGHT ATRIUM: NORMAL LEFT ATRIUM: NORMAL RIGHT VENTRICLE: NORMAL LEFT VENTRICLE: NORMAL TRICUSPID VALVE: NORMAL MITRAL VALVE: NORMAL PULMONIC VALVE: NORMAL AORTIC VALVE: NORMAL PERICARDIAL EFFUSION: NONE AORTIC ROOT: NORMAL LEFT VENTRICULAR WALL MOTION: NORMAL DOPPLER/COLOR FLOW: MILD MITRAL AND TRICUSPID REGURGITATION. COMMENTS: NORMAL LEFT VENTRICULAR EJECTION FRACTION 60-65%. NORMAL WALL MOTION. MILD MITRAL AND TRICUSPID REGURGITATION. TECHNOLOGIST: Jeannette HARRISON
[2021-08-19] MEDS: INSULIN -REGULAR HUMAN 50 UNIT/0.5 ML ML SQ SCH ×2 (07:30→13:06)
[2021-08-19] MEDS ORDERED: REGADENOSON 0.4 MG/5 ML SYR IV ONE (07:51)
[2021-08-19] MEDS: ASPIRIN EC 81 MG TAB PO SCH (09:38)
[2021-08-19] MEDS: METOPROLOL TAR 50 MG TAB PO SCH (09:38)
[2021-08-19] MEDS: ENOXAPARIN 40 MG/0.4 ML SQ SCH (09:38)
[2021-08-19 12:27] VITALS: BP 123/64; TEMP 97.8
--- NOTE | 2021-08-19 12:37 | RAD REPORT ---
EXAM DESCRIPTION: NM - Rest Stress Cardiac Imaging - 08/19/2021 8:44 am CLINICAL HISTORY: Chest pain. COMPARISON: None. TECHNIQUE: The patient was administered 9.8 mCi of Tc 99m Sestamibi prior to resting SPECT imaging o f the heart. The patient was then administered 30.4 mCi of Tc 99m Sestamibi following exercise or pha rmacologic stress. Multiplanar SPECT images were reviewed. FINDINGS: Attenuation of radiotracer involving the inferior left ventricular myocardium on rest and stress images probably attenuation from the diaphragm. The remainder of the left ventricular myocardium demonstrates uniformity of radiotracer activity on r est and stress sequences The left ventricular ejection fraction equals 76% IMPRESSION: Negative for a myocardial perfusion defect
--- NOTE | 2021-08-19 13:16 | P.PN ---
Subjective Date of Service: 08/18/21 Chief Complaint: Chest pain and dizziness No new complaint today. Patient denies any chest pain Physical Examination - Vital Signs Temperature: 97.8 F Blood Pressure: 123/64 Pulse: 71 Respirations: 16 Pulse Ox (%): 98 - Physical Exam General: Alert, In no apparent distress, Oriented x3 HEENT: Mucous membr. moist/pink Neck: Supple, JVD not distended Respiratory: Clear to auscultation bilaterally, Diminished Cardiovascular: No edema, Regular rate/rhythm, Normal S1 S2, No murmurs Gastrointestinal: Soft and benign, Non-distended Musculoskeletal: No swelling, No tenderness Integumentary: No rashes, No erythema Neurological: Normal strength at 5/5 x4 extr Lymphatics: No axilla or inguinal lymphadenopathy Assessment And Plan - Current Problems (Diagnosis) (1) Chest pain Current Visit: Yes Status: Acute (2) Symptomatic anemia Current Visit: Yes Status: Acute (3) Diabetes mellitus type 2 in nonobese Current Visit: Yes Status: Acute (4) Essential hypertension Current Visit: Yes Status: Acute (5) Hyperlipidemia Current Visit: Yes Status: Acute - Plan Troponin trended negative Echocardiogram done is unremarkable I suspect symptomatic anemia-anemia causing angina. Iron profile shows iron deficiency. Patient with a reported history of Hemoccult positive stool. He may have chronic GI bleed He declined blood transfusion. Oral iron supplementation Continue aspirin, metoprolol, statins. Hold metformin and glipizide Insulin sliding scale for glucose management. Seen by cardiology-Dr. Lundberg who is recommending nuclear stress test.
--- NOTE | 2021-08-19 16:24 | PN ---
Date of Progress Note: 08/19/2021 Mr. Hudson was seen by Dr. Lundberg last night for chest pain, diabetes, hypertension, dyslipidemia. T elemetry is normal today. No new development. Echocardiogram is normal. Initial part of the Lexisc an is normal. Final report as per the Cardiology still pending. Troponin is negative. He can go ho me whenever the stress test is completed. Results are available. No change in medical therapy. He will follow up at the [facility]. JEET/KARI Voice ID: [id number] Report ID: [id number]
--- NOTE | 2021-08-22 07:27 | TREADPHA ---
DX: CHEST PAIN Date of Study: 08/19/2021 Ht: 5' 9 " Wt: 174 lb 0 oz Consulting Physician: SULY MEDICATIONS: ASPIRIN, LIPITOR, LOVENOX, PROSCAR, NOVOLIN-R, LOPRESSOR, NITROSTAT, FLOMAX HISTORY: 76 YEAR OLD MALE WITH COMPLAINTS OF CHEST PAIN, TIGHTNESS, SHORTNESS OF BREATH. HISTORY OF HYPERTENSION, HYPERLIPIDEMIA, DIABETES MELLITUS TYPE 2, GASTROESOPHAGEAL REFLUX DISEASE, BENIGN PROSTATIC HYPERPLASIA, ANXIETY PHYSICIAL EXAMINATION: RESTING B.P.: 138/72 RESTING H.R.: 71 RESTING EKG: NORMAL PROTOCOL: PHARMACOLOGIC EXERCISE TIME: 3:30 B.P. AT PEAK STRESS: 129/62 IMPRESSION: LEXISCAN INJECTED. CARDIOLITE INJECTED PER PROTOCOL. SEE NUCLEAR MEDICINE REPORT, DENIES CHEST PAIN, NO PREMATURE VENTRICULAR COMPLEXES, PREMATURE ATRIAL COMPLEXES, SUPRAVENTRICULAR TACHYCARDIA, VENTRICULAR TACHYCARDIA NOTED.
== END 2021-08-19 13:43 | disposition home or self-care (01) | DRG 313 ==
LOC: ER 10:34 → ERHOLD 15:37 → 2ND 17:00 → OBSVTOIN 08-19 07:52
PROVIDERS: ADMIT Internal Medicine; ATTEND Internal Medicine
DX: R07.89 Other chest pain (principal); D64.9 Anemia, unspecified; R06.02 Shortness of breath; E11.9 Type 2 diabetes mellitus without complications; I10 Essential (primary) hypertension; K21.9 Gastro-esophageal reflux disease without esophagitis; E78.5 Hyperlipidemia, unspecified; Z53.29 Procedure and treatment not carried out because of patient's decision for other reasons; Z20.822 Contact with and (suspected) exposure to COVID-19; Z88.0 Allergy status to penicillin
CPT/HCPCS: 36415; 71045; 71275; 78452; 80048; 80061; 82947; 83540; 83735; 83880; 84466; 84484; 85025; 85379; 93005; 93017; 93306; 99285; A9500; G0378; J1650; J1815; J2785; Q9967; U0003

== ENCOUNTER 2023-10-18 15:36 | Observation (INO) | payer OTHER ==
--- OUTSIDE RECORDS SUMMARY | 2023-10-18 15:39 | XMS REPORT | Continuity of Care Document ---
Author Name Unknown Address [address] [place] [address] [facility] Address [address] [place] [address] Care Team Providers Care [place] Assessor Name Role Phone [facility], [facility] Primary Care Physician U EMMA Pizarro Attending Clinician Unavailable MADHAVI CANICNO Attending Clinician Unavaila Madhavi Vivar Attending Clinician [phone] Doctor Unassigned, [place] Attending Clinician U Emma Pizarro MD Attending Clinician [phone] Rm2, Adc Surg Proc Attending Clinician Unavailab gregoria 2, Adc Lab Attending Clinician Unavailable Musa Ballard RN Attending Clinician Unavail able MELO BETANCOURT Attending Clinician Unavailable MELO BETANCOURT Attending Clinician Unavailable Leonides Womack MD Attending Clinician [phone] MELO BETANCOURT Admitting Clinician Unavailable Payers Payer Name Policy Type Policy Number Effective Date Expirati on Date Source [facility] [id number] 2000 00:00:00 Problems Condition Name Condition Details Condition Category Status Onset Date Resolution Date Last Treatment Date Treating Clinician Comments Source Gastroente ritis Gastroente ritis Disease Active 2020-04 00:00: 00 [facility] Allergies, Adverse Reactions, Alerts Allergy Name Allergy Type Status Severity Reaction(s) Onset Date Inactive Date Treating Clinician Comments Source PENICILL IN DRUG INGREDI Active Med Hives 2020-04 00:00: 00 [facility] Penicill in Drug Allergy Active Hives 2020-04 00:00: 00 [facility] SHRIMP DRUG INGREDI Active Hives 12-07 00:00: 00 [facility] Shrimp Propensi ty to adverse reaction s Active Hives 12-07 00:00: 00 [facility] Social History Social Habit Start Date Stop Date Quantity Comments Source Sexual orientation [facility] History of tobacco use Current smoker [facility] History of Social function 2023-06-12 00:00:00 2023-06-12 00:00:00 [facility] Exposure to SARS-CoV-2 (event) 2022-06-25 00:00:00 2022-07-05 09:30:00 Not sure [facility] Tobacco Comment 2022-03-30 00:00:00 2022-03-30 00:00:00 pt quit smoking 48 years ago [facility] Tobacco use and exposure 2022-03-30 00:00:00 2022-03-30 00:00:00 Smokeless tobacco non-user [facility] Sex assigned at 1945 00:00:00 1945 00:00:00 [facility] Smoking Status Start Date Stop Date Source Ex-smoker 2022-03-30 00:00:00 2022-03-30 00:00:00 [facility] Medications Ordered Medication Name Filled Medication Name Start Date Stop Date Current Medication? Ordering Clinician Indication Dosage Frequency Signature (SIG) Comments Components Source levothyroxi ne 100 mcg tablet 09-03 08:51: 48 Yes 100ug Take 1 tablet by mouth. [facility] tamsulosin 0.4 mg 24 hr capsule 06-12 09:02: 28 06-12 00:00 :00 No Take by mouth daily. [facility] alfuzosin 10 mg 24 hr tablet 06-12 00:00: 00 Yes [id number] 01 10mg Take 1 tablet by mouth in the morning. [facility] metFORMIN 500 mg tablet 1 00:00: 00 Yes 500mg 1 tablet. [facility] alfuzosin 10 mg 24 hr tablet 05-02 00:00: 00 06-12 00:00 :00 No [id number] 01 10mg Take 1 tablet by mouth in the morning. [facility] Cholecalcif pk, Vitamin D3, 50 mcg (2,000 unit) tablet 05-18 00:00: 00 Yes 50ug Take 50 mcg by mouth in the morning. [facility] No known medications 2021-04 15:33: 54 No No known medication s [facility] tamsulosin 0.4 mg 24 hr capsule 2021-04 00:00: 00 05-02 00:00 :00 No .8mg Take by mouth daily. [facility] finasteride 5 mg tablet 11-22 00:00: 00 Yes 5mg 1 tablet. [facility] sildenafiL 100 mg tablet 11-22 00:00: 00 Yes 50mg 0.5 tablets. [facility] atorvastati n 40 mg tablet 08-29 00:00: 00 Yes 20mg Take 0.5 tablets by mouth in the morning. [facility] docusate 100 mg capsule 08-29 00:00: 00 Yes 100mg Take 1 capsule by mouth in the morning and 1 capsule in the evening. [facility] ferrous gluconate 324 mg (38 mg iron) tablet 08-29 00:00: 00 Yes 324mg Take 1 tablet by mouth in the morning. [facility] glipiZIDE 10 mg tablet 08-29 00:00: 00 Yes 5mg 0.5 tablets. [facility] vitamin B-12 500 mcg tablet 08-22 00:00: 00 Yes 500ug Take 1 tablet by mouth in the morning. [facility] lisinopriL 10 mg tablet 06-30 00:00: 00 Yes 10mg 1 tablet. [facility] omeprazole 20 mg capsule 06-30 00:00: 00 Yes 20mg 1 capsule. [facility] ferrous sulfate 325 mg (65 mg iron) tablet 2020-04 00:00: 00 05-03 05:59 :00 No [id number] 325mg Take 1 tablet by mouth daily for 30 days. [facility] enoxaparin (LOVENOX) injection 40 mg 2020-04 15:00: 00 Yes 40mg 40 mg, Subcutaneo us, DAILY, First dose on Sun04/01/21 at 0900, Until Discontinu ed, Routine [facility] Sliding Scale Insulin - Lispro (HumaLOG) + Fsbg Testing 2020-04 03:00: 00 Yes Subcutaneo us, TID MEALS+HS, First dose on Sun03/31/21 at 2100, Until Discontinu ed, Routine [facility] NaCl 0.9% (NS) IV infusion 1,000 mL 2020-04 00:45: 00 Yes 1000mL at 125 mL/hr, IV Infusion, CONTINUOUS , Starting on Sun03/31/21 at 1845, Until Discontinu ed, Routine [facility] ondansetron (ZOFRAN (PF)) injection 4 mg 2020-04 00:31: 41 Yes 4mg 4 mg, Slow IV Push, Q6HPRN, Starting on Sun03/31/21 at 1831, Until Discontinu ed, Routine, Nausea and Vomiting (N/V) [facility] acetaminoph en (TYLENOL) tablet 650 mg 2020-04 00:31: 41 Yes 650mg 650 mg, Oral, Q6HPRN, Starting on Sun03/31/21 at 1831, Until Discontinu ed, Routine, Pain (scale 1-3) [facility] HYDROcodone -acetaminop hen (NORCO 5) 5-325 mg tablet 1 tablet 2020-04 00:31: 41 04-03 00:30 :41 No 1{tbl} 1 tablet, Oral, Q6HPRN, Starting on Sun03/31/21 at 1831, Until 04/02/21 at 1830, Routine, Pain (scale 4-6) [facility] Vital Signs Vital Name Observation Time Observation Value Comments S isabell Systolic blood pressure 2023-09-04 13:48:00 133 mm[Hg] [facility] Diastolic blood pressure 2023-09-04 13:48:00 77 mm[Hg] [facility] Heart rate 2023-09-04 13:48:00 84 /min Unive [facility] Body temperature 2023-09-04 13:48:00 35.56 Loan [facility] Respiratory rate 2023-09-04 13:48:00 18 /min [facility] Body weight 2023-09-04 13:48:00 81.194 kg [facility] BMI 2023-09-04 13:48:00 26.43 kg/m2 [facility] Oxygen saturation in Arterial blood by Pulse oximetry 2023-09-04 13:48:00 95 /min [facility] Systolic blood pressure 2023-06-12 14:33:00 125 mm[Hg] [facility] Diastolic blood pressure 2023-06-12 14:33:00 71 mm[Hg] [facility] Heart rate 2023-06-12 14:33:00 94 /min Unive [facility] Respiratory rate 2023-06-12 14:33:00 18 /min [facility] Body height 2023-06-12 14:33:00 175.3 cm [facility] Body weight 2023-06-12 14:33:00 82.555 kg [facility] BMI 2023-06-12 14:33:00 26.88 kg/m2 [facility] Oxygen saturation in Arterial blood by Pulse oximetry 2023-06-12 14:33:00 96 /min [facility] Systolic blood pressure 2023-05-02 14:45:00 134 mm[Hg] [facility] Diastolic blood pressure 2023-05-02 14:45:00 85 mm[Hg] [facility] Heart rate 2023-05-02 14:45:00 94 /min Unive [facility] Respiratory rate 2023-05-02 14:45:00 18 /min [facility] Body height 2023-05-02 14:45:00 175.3 cm [facility] Body weight 2023-05-02 14:45:00 82.555 kg [facility] BMI 2023-05-02 14:45:00 26.88 kg/m2 [facility] Oxygen saturation in Arterial blood by Pulse oximetry 2023-05-02 14:45:00 97 /min [facility] Systolic blood pressure 2022-07-05 14:55:00 135 mm[Hg] [facility] Diastolic blood pressure 2022-07-05 14:55:00 76 mm[Hg] [facility] Heart rate 2022-07-05 14:55:00 89 /min [facility] Body temperature 2022-07-05 14:55:00 36.83 Loan [facility] Respiratory rate 2022-07-05 14:55:00 18 /min [facility] Body height 2022-07-05 14:55:00 175.3 cm [facility] Body weight 2022-07-05 14:55:00 83.19 kg [facility] BMI 2022-07-05 14:55:00 27.08 kg/m2 [facility] Oxygen saturation in Arterial blood by Pulse oximetry 2022-07-05 14:55:00 97 /min [facility] Systolic blood pressure 2022-03-30 21:32:00 151 mm[Hg] [facility] Diastolic blood pressure 2022-03-30 21:32:00 78 mm[Hg] [facility] Heart rate 2022-03-30 21:32:00 95 /min [facility] Body temperature 2022-03-30 21:32:00 36.28 Loan [facility] Respiratory rate 2022-03-30 21:32:00 18 /min [facility] Body height 2022-03-30 21:32:00 175.3 cm [facility] Body weight 2022-03-30 21:32:00 80.922 kg [facility] BMI 2022-03-30 21:32:00 26.35 kg/m2 [facility] Oxygen saturation in Arterial blood by Pulse oximetry 2022-03-30 21:32:00 98 /min [facility] Systolic blood pressure 2021-04-02 13:40:00 118 mm[Hg] [facility] Diastolic blood pressure 2021-04-02 13:40:00 68 mm[Hg] [facility] Heart rate 2021-04-02 13:40:00 73 /min [facility] Body temperature 2021-04-02 13:40:00 36.72 Loan [facility] Respiratory rate 2021-04-02 13:40:00 17 /min [facility] Oxygen saturation in Arterial blood by Pulse oximetry 2021-04-02 13:40:00 99 /min [facility] Body weight 2021-04-02 09:27:00 73.5 kg [facility] BMI 2021-04-02 09:27:00 23.93 kg/m2 [facility] Body height 2021-03-31 22:39:00 175.3 cm [facility] Procedures Procedure Date / Time Performed Performing Clinician Source POCT URINALYSIS AUTO 2023-09-04 13:57[facility]-VOID RES,US,NON-IMAGING 2023-09-04 13:56[facility] 2023-06-12 15:00:00 [facility] TAD,POST-VOID RES,US,NON-IMAGING 2023-05-02 14:51:00 [facility] PO[facility] URINALYSIS AUTO 2023-05-02 00:00:00 [facility] EXTERNAL PROVIDER RECORDS 2023-04-06 06:01:00 Do ctor Unassigned, [place] [facility] POCT URINALYSIS AUTO 2022-07-05 15:04:00 Ángel Stevens [facility] DISCLOSURE AND CONSENT, MEDICAL AND SURGICAL PROCEDURES 2022-07-05 05:01:00 Doctor Unassigned, [place] [facility] ASSIGNMENT OF BENEFITS 2022-06-21 13:52:02 Docto r Unassigned, [place] [facility] PATIENT QUESTIONNAIRE 2022-03-30 06:01:00 Doctor Unassigned, [place] [facility] INSURANCE CORRESPONDENCE 2022-02-07 05:01:00 Doc tor Unassigned, [place] [facility] EXTERNAL PROVIDER RECORDS 2021-04-25 06:01:00 Do ctor Unassigned, [place] [facility] POCT GLUCOSE (AUTOMATED) 2021-04-02 13:43:00 Nora Betancourt [facility] POCT GLUCOSE (AUTOMATED) 2021-04-02 02:24:00 Nora Betancourt [facility] POCT GLUCOSE (AUTOMATED) 2021-04-01 23:18:00 Nora Betancourt [facility] FERRITIN SERUM 2021-04-01 18:27:00 Lorri Betancourtshua [facility] VITAMIN B12, LEVEL 2021-04-01 18:27:00 Lorri Betancourtshua [facility] FOLATE 2021-04-01 18:27:00 Serafin Melo [facility] IRON PANEL 2021-04-01 18:27:00 Serafin [facility] CLOSTRIDIUM DIFFICILE TOXIN 2021-04-01 18:27:00 Lorri Betancourtshua [facility] POCT GLUCOSE (AUTOMATED) 2021-04-01 17:43:00 Leonides Bernal [facility] POCT GLUCOSE (AUTOMATED) 2021-04-01 13:42:00 Leonides Bernal [facility] BASIC METABOLIC PANEL (NA, K, CL, CO2, GLUCOSE, BUN, CREATININE, CA) 2021-04-01 10:01:00 Leonides Womack [facility] CBC WITH DIFF 2021-04-01 10:00:00 Leonides Womack [facility] POCT GLUCOSE (AUTOMATED) 2021-04-01 03:24:00 Leonides Bernal [facility] CBC WITH DIFF 2021-04-01 02:54:00 Leonides Womack [facility] BASIC METABOLIC PANEL (NA, K, CL, CO2, GLUCOSE, BUN, CREATININE, CA) 2021-04-01 02:53:00 Leonides Womack [facility] Encounters Start Date/Time End Date/Time Encounter Type Admission Type Attending [facility] Facility Care Department Encounter ID Source 2023-09-04 10:00:00 2023-09-04 10:00:00 Office Visit Madhavi Cancino [facility] [id number] 350.1.13.10 4.2.7.2.686 [id number] [facility] 2023-09-04 10:00:00 2023-09-04 09:07:09 Outpatient R REE CANCINOTNEY [facility] [id number] [facility] 2023-06-12 09:30:00 2023-06-12 09:30:00 [facility] 1.2.840.114 350.1.13.10 4.2.7.2.686 [id number] [facility] 2023-06-12 09:30:00 2023-06-12 09:05:18 Outpatient R REE CANCINOTNEY [facility] [id number] [facility] 2023-05-10 00:00:00 2023-05-10 00:00:00 Telephone Madhavi Cancino [facility] 1.2.840.114 350.1.13.10 4.2.7.2.686 [id number] [facility] 2023-05-02 09:45:00 2023-05-02 09:45:00 [facility] 1.2.840.114 350.1.13.10 4.2.7.2.686 [id number] [facility] 2023-05-02 09:45:00 2023-05-02 09:20:19 Outpatient R MADHAVI CANCINO [facility] [id number] [facility] 2023-04-06 00:00:00 2023-04-06 00:00:00 Orders Only Doctor Unassigned, [place] [facility] 1.2.840.114 350.1.13.10 4.2.7.2.686 [id number] [facility] 2022-07-05 10:00:00 2022-07-05 11:39:53 [id number] 2022-07-05 10:00:00 2022-07-05 11:39:53 Office Visit Emma Stevens Rm2, Adc Surg Proc [facility] 1.2.840.114 350.1.13.10 4.2.7.2.686 [id number] [facility] 2022-07-05 00:00:00 2022-07-05 00:00:00 Orders Only Doctor Unassigned, [place] [facility] 1.2.840.114 350.1.13.10 4.2.7.2.686 [id number] [facility] 2022-07-04 00:00:00 2022-07-04 00:00:00 Telephone Emma Stevens [facility] 1.2.840.114 350.1.13.10 4.2.7.2.686 [id number] [facility] 2022-06-21 08:00:00 2022-06-21 08:32:37 [facility] [id number] 2022-06-21 08:00:00 2022-06-21 08:15:00 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 2, Adc Lab Rodney [facility] 1.2.840.114 350.1.13.10 4.2.7.2.686 [id number] [facility] 2022-06-21 00:00:00 2022-06-21 00:00:00 Orders Only Doctor Unassigned, [place] [facility] 1.2.840.114 350.1.13.10 4.2.7.2.686 [id number] [facility] 2022-04-03 00:00:00 2022-04-03 00:00:00 Case Management Rodney [facility] 1.2.840.114 350.1.13.10 4.2.7.2.686 [id number] [facility] 2022-03-30 16:30:00 2022-03-30 16:30:00 Office Visit Fartun [facility] 1.2.840.114 350.1.13.10 4.2.7.2.686 [id number] [facility] 2022-03-30 16:30:00 2022-03-30 15:48:26 Outpatient R RODNEY [facility] [id number] [facility] 2022-03-30 00:00:00 2022-03-30 00:00:00 Orders Only Doctor Unassigned, [place] [facility] 1.2.840.114 350.1.13.10 4.2.7.2.686 [id number] [facility] 2022-02-07 00:00:00 2022-02-07 00:00:00 Orders Only Doctor Unassigned, [place] [facility] 1.2.840.114 350.1.13.10 4.2.7.2.686 [id number] [facility] 2021-04-25 00:00:00 2021-04-25 00:00:00 Orders Only Doctor Unassigned, [place] [facility] 1.2.840.114 350.1.13.10 4.2.7.2.686 [id number] [facility] 2021-04-04 00:00:00 2021-04-04 00:00:00 Transition of Care Musa Ballard GALAVadim ERYN GABRIEL 1.2840.114 350.1.13.10 4.2.7.2.686 [id number] [facility] 2021-03-31 16:22:00 2021-04-02 10:37:00 Inpatient U MELO BETANCOURT [facility] [id number] [facility] 2021-03-31 16:22:00 2021-04-02 10:37:00 Hospital Encounter VuLeonides blank Joshua [facility] 1.2840.114 350.1.13.10 4.2.7.2.686 [id number] [facility] Results Test Description Test Time Test Comments Results Result Co mments Source [facility] [id number] 13:57:00 * Test Item Value Reference Range Interpretation Comme nts POCT U SP GRAV (test code = 3255) 1.015 mg/dl 1.005-1.025 POCT PH U (test code = 3254) 6.0 mg/dl 5-8 POCT U LEUK EST (test code = 3263) trace Negative - Negative A POCT U NIT (test code = 3262) negative Negative - Negati ve POCT U PROT (test code = 3259) trace Negative - Negative A POCT U GLU (test code = 3256) negative Negative - Negati ve POCT U KETONE (test code = 3258) negative Negative - Negative POCT U UROBILI (test code = 3260) 0.2 mg/dl 0.2-1 POCT U BILI (test code = 3261) negative Negative - Negative POCT U BLD (test code = 3257) negative Negative - Negati ve POCT U COLOR (test code = 3266) yellow POCT U APPEAR (test code = 3267) clear Lab Interpretation (test cod e = 05546-2) Abnormal General acute hospital,POST-VOID RES,US,[id number] 13:56:00* Test Item Value Reference Range Interpretation Comme nts PVR (URINE VOLUME) (test code = 5193) 54 ml 0-100 General acute hospital,POST-VOID RES,US,[id number] 13:56:00* Test Item Value Reference Range Interpretation Comme nts PVR (URINE VOLUME) (test code = 5193) 54 ml 0-[facility] [id number] 15:01:00 * Test Item Value Reference Range Interpretation Comme nts POCT U SP GRAV (test code = 3255) 1.020 mg/dl 1.005-1.025 POCT PH U (test code = 3254) 7.0 mg/dl 5-8 POCT U LEUK EST (test code = 3263) Negative Negative - Negative POCT U NIT (test code = 3262) Negative Negative - Negati ve POCT U PROT (test code = 3259) Negative Negative - Negative POCT U GLU (test code = 3256) Negative Negative - Negati ve POCT U KETONE (test code = 3258) Negative Negative - Negative POCT U UROBILI (test code = 3260) 0.2 mg/dl 0.2-1 POCT U BILI (test code = 3261) Negative Negative - Negative POCT U BLD (test code = 3257) Negative Negative - Negati ve POCT U COLOR (test code = 3266) Yellow POCT U APPEAR (test code = 3267) Clear [facility], [id number] 15:01:00 * Test Item Value Reference Range Interpretation Comme nts POCT U SP GRAV (test code = 3255) 1.020 mg/dl 1.005-1.025 POCT PH U (test code = 3254) 7.0 mg/dl 5-8 POCT U LEUK EST (test code = 3263) Negative Negative - Negative POCT U NIT (test code = 3262) Negative Negative - Negati ve POCT U PROT (test code = 3259) Negative Negative - Negative POCT U GLU (test code = 3256) Negative Negative - Negati ve POCT U KETONE (test code = 3258) Negative Negative - Negative POCT U UROBILI (test code = 3260) 0.2 mg/dl 0.2-1 POCT U BILI (test code = 3261) Negative Negative - Negative POCT U BLD (test code = 3257) Negative Negative - Negati ve POCT U COLOR (test code = 3266) Yellow POCT U APPEAR (test code = 3267) Clear [facility] Urinalysis, [id number] 15:01:00 * Test Item Value Reference Range Interpretation Comme nts POCT U SP GRAV (test code = 3255) 1.020 mg/dl 1.005-1.025 POCT PH U (test code = 3254) 7.0 mg/dl 5-8 POCT U LEUK EST (test code = 3263) Negative Negative - Negative POCT U NIT (test code = 3262) Negative Negative - Negati ve POCT U PROT (test code = 3259) Negative Negative - Negative POCT U GLU (test code = 3256) Negative Negative - Negati ve POCT U KETONE (test code = 3258) Negative Negative - Negative POCT U UROBILI (test code = 3260) 0.2 mg/dl 0.2-1 POCT U BILI (test code = 3261) Negative Negative - Negative POCT U BLD (test code = 3257) Negative Negative - Negati ve POCT U COLOR (test code = 3266) Yellow POCT U APPEAR (test code = 3267) Clear [facility] Urinalysis, [id number] 14:51:00 * Test Item Value Reference Range Interpretation Comme nts POCT U SP GRAV (test code = 3255) 1.020 mg/dl 1.005-1.025 POCT PH U (test code = 3254) 7 mg/dl 5-8 POCT U LEUK EST (test code = 3263) neg Negative - Negative POCT U NIT (test code = 3262) neg Negative - Negati ve POCT U PROT (test code = 3259) 30 Negative - Negative POCT U GLU (test code = 3256) neg Negative - Negati ve POCT U KETONE (test code = 3258) neg Negative - Negative POCT U UROBILI (test code = 3260) 0.2 mg/dl 0.2-1 POCT U BILI (test code = 3261) neg Negative - Negative POCT U BLD (test code = 3257) neg Negative - Negati ve POCT U COLOR (test code = 3266) yellow POCT U APPEAR (test code = 3267) clear General acute hospital,POST-VOID RES,US,[id number] 14:51:00* Test Item Value Reference Range Interpretation Comme nts PVR (URINE VOLUME) (test code = 5193) 35 ml 0-100 [facility] [id number] 14:51:00 * Test Item Value Reference Range Interpretation Comme nts POCT U SP GRAV (test code = 3255) 1.020 mg/dl 1.005-1.025 POCT PH U (test code = 3254) 7 mg/dl 5-8 POCT U LEUK EST (test code = 3263) neg Negative - Negative POCT U NIT (test code = 3262) neg Negative - Negati ve POCT U PROT (test code = 3259) 30 Negative - Negative POCT U GLU (test code = 3256) neg Negative - Negati ve POCT U KETONE (test code = 3258) neg Negative - Negative POCT U UROBILI (test code = 3260) 0.2 mg/dl 0.2-1 POCT U BILI (test code = 3261) neg Negative - Negative POCT U BLD (test code = 3257) neg Negative - Negati ve POCT U COLOR (test code = 3266) yellow POCT U APPEAR (test code = 3267) clear General acute hospital,POST-VOID RES,US,[id number] 14:51:00* Test Item Value Reference Range Interpretation Comme nts PVR (URINE VOLUME) (test code = 5193) 35 ml 0-100 [facility] URINALYSIS, [id number] 15:04:00 * Test Item Value Reference Range Interpretation Comme nts POCT U SP GRAV (test code = 3255) 1.020 mg/dl 1.005-1.025 POCT PH U (test code = 3254) 6 mg/dl 5-8 POCT U LEUK EST (test code = 3263) negative Negative - Negative POCT U NIT (test code = 3262) negative Negative - Negati ve POCT U PROT (test code = 3259) 30 Negative - Negative POCT U GLU (test code = 3256) negative Negative - Negati ve POCT U KETONE (test code = 3258) negative Negative - Negative POCT U UROBILI (test code = 3260) 0.2 mg/dl 0.2-1 POCT U BILI (test code = 3261) negative Negative - Negative POCT U BLD (test code = 3257) negative Negative - Negati ve POCT U COLOR (test code = 3266) yellow POCT U APPEAR (test code = 3267) clear Lab Interpretation (test cod e = 20252-5) Normal [facility] URINALYSIS, [id number] 15:04:00 * Test Item Value Reference Range Interpretation Comme nts POCT U SP GRAV (test code = 3255) 1.020 mg/dl 1.005-1.025 POCT PH U (test code = 3254) 6 mg/dl 5-8 POCT U LEUK EST (test code = 3263) negative Negative - Negative POCT U NIT (test code = 3262) negative Negative - Negati ve POCT U PROT (test code = 3259) 30 Negative - Negative POCT U GLU (test code = 3256) negative Negative - Negati ve POCT U KETONE (test code = 3258) negative Negative - Negative POCT U UROBILI (test code = 3260) 0.2 mg/dl 0.2-1 POCT U BILI (test code = 3261) negative Negative - Negative POCT U BLD (test code = 3257) negative Negative - Negati ve POCT U COLOR (test code = 3266) yellow POCT U APPEAR (test code = 3267) clear Lab Interpretation (test cod e = 77924-5) Normal [facility] GLUCOSE (AUTOMATED)2021-04-02 15:19:24* Test Item Value Reference Range Interpretation Comme nts POCT GLU (test code = 4743784732) 117 mg/dL 70-110 H Lab Interpretation (test cod e = 25081-6) Abnormal [facility] GLUCOSE (AUTOMATED)2021-04-02 02:33:23* Test Item Value Reference Range Interpretation Comme nts POCT GLU (test code = 1414334911) 122 mg/dL 70-110 H Lab Interpretation (test cod e = 40355-2) [facility]56[facility]* Test Item Value Reference Range Interpretation Comme nts FOLATE SER (test code = 1608030006) 10.5 ng/mL 3.0-20.0 Lab Interpretation (test cod e = 46468-0) [facility], [id number] 23:46:04* Test Item Value Reference Range Interpretation Comme nts VIT B12 (test code = 8931041315) 726 pg/mL 240-930 SHILPI (test code = SHILPI) Biotin has been reported to cause a positive bias, interpret results relative to patient's use of biotin. Lab Interpretation (test code = 93440-7) Normal [facility] GLUCOSE (AUTOMATED)2021-04-01 23:24:57* Test Item Value Reference Range Interpretation Comme nts POCT GLU (test code = 4792231583) 147 mg/dL 70-110 H Lab Interpretation (test cod e = 18238-2) [facility] [id number] 20:10:51* Test Item Value Reference Range Interpretation Comme nts FERRITIN (test code = 8740067159) 11.6 ng/mL 18.0-464.0 L SHILPI (test code = SHILPI) Biotin has been reported to cause a negative bias, interpret results relative to patient's use of biotin. Lab Interpretation (test code = 68337-3) [facility] [id number] 19:44:22* Test Item Value Reference Range Interpretation Comme nts IRON (test code = 1314593200) 17 ug/dL 50-160 L TIBC (test code = 6871765924) 414 ug/dL 250-410 H % FE SAT (test code = 0954563149) 4 % 20-50 L Lab Interpretation (test cod e = 23420-2) Abnormal [facility] GLUCOSE (AUTOMATED)2021-04-01 17:45:12* Test Item Value Reference Range Interpretation Comme nts POCT GLU (test code = 3976675579) 115 mg/dL 70-110 H Lab Interpretation (test cod e = 79472-3) Abnormal [facility] GLUCOSE (AUTOMATED)2021-04-01 14:31:40* Test Item Value Reference Range Interpretation Comme [facility] POCT GLU (test code = 6970472199) 83 mg/dL 70-110 Lab Interpretation (test cod e = 57626-9) Normal [facility] Metabolic Panel (NA, K, CL, CO2, GLUCOSE, BUN, CREATININE, CA)2021-04-01 10:57:18* Test Item Value Reference Range Interpretation Comme nts NA (test code = 8554640180) 134 mmol/L 135-145 L K (test code = 7265932027) 3.6 mmol/L 3.5-5.0 CL (test code = 7892600291) 110 mmol/L 98-108 H CO2 TOTAL (test code = 4231775377) 12 mmol/L 23-31 L AGAP (test code = 4288827627) 2-16 BUN (test code = 2829199986) 34 mg/dL 7-23 H GLUCOSE (test code = 8274570408) 67 mg/dL 70-110 L CREATININE (test code = 4650929715) 1.41 mg/dL 0.60-1.25 H CALCIUM (test code = 1582698946) 7.5 mg/dL 8.6-10.6 L eGFR (test code = 6860983585) mL/min/1.73m2 SHILPI (test code = SHILPI) Association of [...] or abnormalities in imaging tests). Lab Interpretation (test code = 75222-9) Abnormal [facility] with Rjygatohhluh1063-34-20 10:47:18* Test Item Value Reference Range Interpretation Comme nts WBC (test code = 6690-2) See_Comment [[employer]] The system which generated this result transmitted reference range: 4.20 - 10.70 10*3/?L. The reference range was not used to interpret this result as normal/abnormal. RBC (test code = 789-8) See_Comment L [[employer]] The system which generated this result transmitted reference range: 4.26 - 5.52 10*6/?L. The reference range was not used to interpret this result as normal/abnormal. HGB (test code = 718-7) 8.7 g/dL 12.2-16.4 L HCT (test code = 4544-3) 28.3 % 38.4-49.3 L MCV (test code = 787-2) 72.9 fL 81.7-95.6 L MCH (test code = 785-6) 22.4 pg 26.1-32.7 L MCHC (test code = 786-4) 30.7 g/dL 31.2-35.0 L RDW-SD (test code = 84098-6) 44.8 fL 38.5-51.6 RDW-CV (test code = 788-0) 17.0 % 12.1-15.4 H PLT (test code = 777-3) See_Comment [Automated messa ge] The system which generated this result transmitted reference range: 150 - 328 10*3/?L. The reference range was not used to interpret this result as normal/abnormal. MPV (test code = 21866-1) 10.9 fL 9.8-13.0 NRBC/100 WBC (test code = 5442274739) See_Comment [Automated [employer]] The system which generated this result transmitted reference range: 0.0 - 10.0 /100 WBCs. The reference range was not used to interpret this result as normal/abnormal. NRBC x10^3 (test code = 3160591916) <0.01 See_Comment [Automated messa ge] The system which generated this result transmitted reference range: 10*3/?L. The reference range was not used to interpret this result as normal/abnormal. GRAN MAT (NEUT) % (test code = 770-8) 51.0 % IMM GRAN % (test code = 4501198074) 0.20 % LYMPH % (test code = 736-9) 33.6 % MONO % (test code = 5905-5) 13.8 % EOS % (test code = 713-8) 0.9 % BASO % (test code = 706-2) 0.5 % GRAN MAT x10^3(ANC) (test code = 3135745076) 2.26 10*3/uL 1.99-6.95 IMM GRAN x10^3 (test code = 0469821683) <0.03 0.00-0.06 LYMPH x10^3 (test code = 731-0) 1.49 10*3/uL 1.09-3.23 MONO x10^3 (test code = 742-7) 0.61 10*3/uL 0.36-1.02 EOS x10^3 (test code = 711-2) 0.04 10*3/uL 0.06-0.53 L BASO x10^3 (test code = 704-7) <0.03 0.01-0.09 Lab Interpretation (test code = 41404-1) [facility]2021-04-01 03:42:00* Test Item Value Reference Range Interpretation Comme [facility] POCT GLU (test code = 4526834757) 107 mg/dL 70-110 Lab Interpretation (test cod e = 62995-0) Normal [facility] METABOLIC PANEL (NA, K, CL, CO2, GLUCOSE, BUN, CREATININE, CA)2021-04-01 03:23:24* Test Item Value Reference Range Interpretation Comme [facility] NA (test code = 5658550124) 135 mmol/L 135-145 K (test code = 0220466230) 3.7 mmol/L 3.5-5.0 CL (test code = 6332502040) 107 mmol/L 98-108 CO2 TOTAL (test code = 5630947535) 14 mmol/L 23-31 L AGAP (test code = 3248702549) 2-16 BUN (test code = 9937931902) 42 mg/dL 7-23 H GLUCOSE (test code = 8372551174) 117 mg/dL 70-110 H CREATININE (test code = 3300334979) 1.65 mg/dL 0.60-1.25 H CALCIUM (test code = 6820934662) 7.7 mg/dL 8.6-10.6 L eGFR (test code = 3570599147) mL/min/1.73m2 SHILPI (test code = SHILPI) Association of [...] or abnormalities in imaging tests). Lab Interpretation (test code = 79333-0) Abnormal [facility] WITH [id number] 03:04:00* Test Item Value Reference Range Interpretation Comme nts WBC (test code = 6690-2) See_Comment [Automated [employer]] The system which generated this result transmitted reference range: 4.20 - 10.70 10*3/?L. The reference range was not used to interpret this result as normal/abnormal. RBC (test code = 789-8) See_Comment L [Automated [employer]] The system which generated this result transmitted reference range: 4.26 - 5.52 10*6/?L. The reference range was not used to interpret this result as normal/abnormal. HGB (test code = 718-7) 8.9 g/dL 12.2-16.4 L HCT (test code = 4544-3) 28.5 % 38.4-49.3 L MCV (test code = 787-2) 72.9 fL 81.7-95.6 L MCH (test code = 785-6) 22.8 pg 26.1-32.7 L MCHC (test code = 786-4) 31.2 g/dL 31.2-35.0 RDW-SD (test code = 39997-8) 43.8 fL 38.5-51.6 RDW-CV (test code = 788-0) 17.0 % 12.1-15.4 H PLT (test code = 777-3) See_Comment [Automated [employer]] The system which generated this result transmitted reference range: 150 - 328 10*3/?L. The reference range was not used to interpret this result as normal/abnormal. MPV (test code = 65265-3) 9.2 fL 9.8-13.0 L NRBC/100 WBC (test code = 5761772824) See_Comment [Automated me ssage] The system which generated this result transmitted reference range: 0.0 - 10.0 /100 WBCs. The reference range was not used to interpret this result as normal/abnormal. NRBC x10^3 (test code = 1004509884) <0.01 See_Comment [Automated messa ge] The system which generated this result transmitted reference range: 10*3/?L. The reference range was not used to interpret this result as normal/abnormal. GRAN MAT (NEUT) % (test code = 770-8) 69.7 % IMM GRAN % (test code = 3840603610) 0.20 % LYMPH % (test code = 736-9) 17.1 % MONO % (test code = 5905-5) 12.6 % EOS % (test code = 713-8) 0.2 % BASO % (test code = 706-2) 0.2 % GRAN MAT x10^3(ANC) (test code = 3196351676) 3.21 10*3/uL 1.99-6.95 IMM GRAN x10^3 (test code = 6514166422) <0.03 0.00-0.06 LYMPH x10^3 (test code = 731-0) 0.79 10*3/uL 1.09-3.23 L MONO x10^3 (test code = 742-7) 0.58 10*3/uL 0.36-1.02 EOS x10^3 (test code = 711-2) <0.03 0.06-0.53 L BASO x10^3 (test code = 704-7) <0.03 0.01-0.09 Lab Interpretation (test code = 43897-7) Abnormal [facility] Notes Date/Time Note Provider Source 2023-05-14 11:04:59 8884-81-03L54:04:59F ormatting of this note might be different from the original.Spoke with patient, patient states that [place] went [place] and they were able to get his RX sent through mail order. Patient denies any concerns/ questions at this time. 20023-7Ztxhxeyat encounter YmubYR9675-71-20E02:05:41Telepho ne encounter NoteTXT1.2.840.536773.1.13.104.2 .7.2.714447|[id number] e for patient mmhg11950-2BzveVYGSWHHAYBXOyrdmf acosta C-CDA narrative [employer] 7298VEOTFPBRPOBRBUQCPMTXKW9730-0 1:05:411.2.840.724712.1.72 .3.15|1.2.840.217800.1.13.104.2. 7.2.727879_[id number] [facility] 2023-05-14 10:51:30 3464-04-39E19:51:30F ormatting of this note might be different from the original.Attempted to contact patient with no answer, Voicemail left at this time with clinic phone number and instructed patient to return call. 51282-6Yjhjipabf encounter KgwcNY0374-43-46D33:51:49Telepho ne encounter NoteTXT1.2.840.433760.1.13.104.2 .7.2.606449|[id number] e for patient tpmj78300-6LhalSXOJEETPLERFdgyrq acosta C-CDA narrative [employer] 1025NXLRVYTYGQYNGMPTUGSBCT7053-0 0:51:491.2.840.360354.1.72 .3.15|1.2.840.976144.1.13.104.2. 7.2.727879_[id number] [facility] 2023-05-11 16:11:38 0139-89-31S84:11:38F ormatting of this note might be different from the original.I do not have a voucher available in clinic he may be able to find one online 26762-0Qrxfytgqa encounter RrqhKL0884-22-54N71:12:03Telepho ne encounter NoteTXT1.2.840.854042.1.13.104.2 .7.2.694541|[id number] e for patient qmhq58953-0NcnkTOPYMITPVZKLijoxw acosta C-CDA [employer] 1676JGLSTVOBVZPYLVWOMBQYDL5078-4 :12:031.2.840.231202.1.72 .3.15|1.2.840.997156.1.13.104.2. 7.2.727879_[id number] [facility] 2023-05-11 14:48:32 3404-79-84X36:48:32F ormatting of this note might be different from the original.Attempted to contact patient with no answer, Voicemail left at this time with clinic phone number and instructed patient to return call. 19229-1Vyzcvyrtu encounter YhcrDD6710-20-50L91:48:39Telepho ne encounter NoteTXT1.2.840.779479.1.13.104.2 .7.2.697685|[id number] e for patient zhxa64302-3LrsuHDICAOHXEPQEzcakv acosta C-CDA narrative [employer] 0880JCCUEYGYMBGXADEFEVPGJS7630-2 :48:391.2.840.849578.1.72 .3.15|1.2.840.329017.1.13.104.2. 7.2.727879_[id number] [facility] 2023-05-10 08:42:02 1683-78-27O11:42:02F ormatting of this note might be different from the original.Lillie Hudson is a 77 year old malePt calling requesting a call back from clinicPt stated he did not receive a voucher and needs one to ensure that he wont have to come out of pocket for the rx also stating he needs the rx to be delivered to his home.Informed pt I can put a pharmacy down for him to have for antwon gordon and to not be sent to pt stated [facility].Pt stated the pharmacy the rx went to is not the one he needs it to go to.Pt wanted to inform the Provideralfuzosin 10 mg 24 hr tabletWalEngagementHealths phone number [phone] [facility] naomy kapoor [place] [address]Euafbfqoofwduh signed by Denice Orlando at 05/10/2023 8:52 AM GBY20882-3Tlkkclsvo encounter NapiAO4365-06-94G47:52:57Telepho ne encounter NoteTXT1.2.840.093387.1.13.104.2 .7.2.183256|[id number] e for patient vmnn80759-5UqcaFFFFAGAWPXTGzblpc acosta C-CDA narrative hjea50131493Snbydopq [address] JnvzQseqhqhaxRotclrirfGNAZ013763 9486CHBDJVNYVGAJNJGGDIPLPL6775-2 05-10T08:52:571.2.840.316873.1.72 .3.15|1.2.840.238456.1.13.104.2. 7.2.727879_[id number] Denice Orlando [facility]"
--- NOTE | 2023-10-18 16:29 | RAD REPORT ---
EXAM DESCRIPTION: RAD - Chest Single View - 10/18/2023 4:20 pm CLINICAL HISTORY: COUGH COMPARISON: No comparisonsChest Single View dated 08/17/2021; CHEST PA AND LAT 2 VIEW dated 07/17/2011; CHEST PA AND LAT 2 VIEW dated 12/31/2009; CHEST SINGLE VIEW dated 12/30/2009 FINDINGS: Lines: None. Lungs: No evidence of edema or pneumonia. Pleural: No significant pleural effusions or pneumothorax. Cardiac: The heart size is within normal limits. Mediastinum: Within normal limits. Bones: No acute fractures. Other: None IMPRESSION: No acute cardiopulmonary disease.
[2023-10-18 16:51] LABS: Absolute Eosinophils 0.1 K/uL (0-0.5); Absolute Lymphocytes (CBC) 1.4 K/uL (0.7-4.9); Absolute Neutrophil 3.6 K/uL (1.8-8.0); Basophils % 0.4 % (0-1.3); Hematocrit 40.8 % (39.6-49.0); Hemoglobin 13.3 g/dL (13.6-17.9); Lymphocytes % 23.2 % (15.3-44.8); MCH 30.2 pg (27.0-35.0); MCHC 32.7 g/dL (32.0-36.0); MCV 92.4 fL (80-100); MPV 8.7 fL (7.6-11.3); Monocytes % 15.8 % (3.3-12.3); Neutrophils % 58.6 % (41.7-73.7); Platelets 142 thou/uL (152-406); RBC Red Blood Cell Count 4.41 M/uL (4.33-5.43); Red Cell Distribution Width 14.5 % (12.1-15.2)
[2023-10-18 16:53] LABS: PT Prothrombin Time 11.2 SECONDS (9.4-12.5); Protime INR 1.02
[2023-10-18] MEDS ORDERED: NA CHLORIDE 0.9% 1,000 ML ONE (17:00)
[2023-10-18] MEDS ORDERED: ONDANSETRON 4 MG/2 ML VIAL ONE (17:00)
[2023-10-18 17:06] LABS: SARS-CoV-2 Antigen CONTROL BLUE LINE VIS/BG OK; SARS-CoV-2 Antigen Rapid Res Negative (Negative)
[2023-10-18 17:09] LABS: Albumin 3.7 g/dL (3.4-5.0); Albumin/Globulin Ratio 0.9 (1.1-1.8); Anion Gap 9.8 mEq/L (5.0-15.0); Bilirubin Direct 0.2 mg/dL (0-0.2); Bilirubin Indirect, Calculated 0.3 mg/dL (0.2-0.8); Bilirubin Total 0.5 mg/dL (0.2-1.0); Globulin 4.2 g/dL (2.3-3.5); Magnesium 1.6 mg/dL (1.6-2.4); Potassium 3.8 mEq/L (3.5-5.1); Protein, Total 7.9 g/dL (6.4-8.2)
[2023-10-18] MEDS ORDERED: AZITHROMYCIN 250 MG TAB ONE (17:18)
[2023-10-18] MEDS ORDERED: FAMOTIDINE 20 MG/2 ML VIAL IV ONE (17:18)
--- NOTE | 2023-10-18 17:58 | ER ---
Nurse's Notes [facility] Name: Abdoul Hudson Age: 78 yrs Sex: Male : 1945 Arrival Date: 10/18/2023 Time: 15:36 Bed 17 Private MD: Diagnosis: Contact with and (suspected) exposure to other communicable diseases-COVID;Acute kidney failure, unspecified-ON CHRONIC;Other malaise and fatigue;Vomiting;Diarrhea, unspecified;Abnormal levels of other serum enzymes-ELEVATED TROPONIN Presentation: 10/17 15:45 Chief complaint: Patient states: sick for 3 days, took home covid test and it was ko1 positive. Coronavirus screen: diarrhea, fatigue, fever, muscle pain, nausea, Client presents with at least one sign or symptom that may indicate coronavirus-19. Standard/surgical mask placed on the client. Ebola Screen: No symptoms or risks identified at this time. Initial Sepsis Screen: Does the patient meet any 2 criteria? No. Patient's initial sepsis screen is negative. Does the patient have a suspected source of infection? No. Patient's initial sepsis screen is negative. Risk Assessment: Do you want to hurt yourself or someone else? Patient reports no desire to harm self or others. Onset of symptoms is unknown. 15:45 Method Of Arrival: Ambulatory ko1 15:45 Acuity: MARICRUZ 4 ko1 Triage Assessment: 15:49 General: Appears in no apparent distress. Behavior is calm, cooperative, appropriate ko1 for age. Pain: Complains of pain in neck and back, generalized body aches. GI: Reports diarrhea, nausea. Historical: - Allergies: 15:49 PENICILLINS; ko1 - PMHx: 15:49 Anxiety; carpal tunnel; diabetes mellitus; GERD; Hypercholesterolemia; Hypertensive ko1 disorder; PTSD; - PSHx: 15:49 Appendectomy; Cholecystectomy; ko1 - Immunization history:: Adult Immunizations up to date, Client reports receiving the 2nd dose of the Covid vaccine. - Infectious Disease History:: Denies. - Social history:: Smoking status: Patient denies any tobacco usage or history of. - Family history:: not pertinent. Screenin:23 [facility] ED Fall Risk Assessment (Adult) History of falling in the last 3 months, bp including since admission No falls in past 3 months (0 pts) Confusion or Disorientation No (0 pts) Intoxicated or Sedated No (0 pts) Impaired Gait No (0 pts) Mobility Assist Device Used No (0 pt) Altered Elimination No (0 pt) Score/Fall Risk Level 0 - 2 = Low Risk. Abuse screen: Denies threats or abuse. Denies injuries from another. Nutritional screening: No deficits noted. Tuberculosis screening: No symptoms or risk factors identified. Assessment: 15:50 General: Appears in no apparent distress. Behavior is calm, cooperative, appropriate bp for age. GI: Abdomen is non-distended, Abd is soft and non tender X 4 quads. 17:23 Reassessment: Patient appears in no apparent distress at this time. Patient is alert, bp oriented x 3, equal unlabored respirations, skin warm/dry/pink. 19:40 General: Appears comfortable, Behavior is calm, cooperative. Pain: Denies pain. Neuro: rg5 Level of Consciousness is awake, alert, obeys commands, Oriented to person, place, time, situation. Cardiovascular: Capillary refill < 3 seconds Patient's skin is warm and dry. Respiratory: Airway is patent Respiratory effort is even, unlabored, Respiratory pattern is regular, symmetrical. 21:00 Reassessment: Patient and/or family updated on plan of care and expected duration. Pain rg5 level reassessed. Patient is alert, oriented x 3, equal unlabored respirations, skin warm/dry/pink. Patient states feeling better. Vital Signs: 15:45 BP 107 / 62; Pulse 104; Resp 18; Temp 98.4; Pulse Ox 97% on R/A; ko1 17:23 BP 102 / 62; Pulse 86; Resp 16; Pulse Ox 97% ; bp 19:00 BP 115 / 67; Pulse 83; Resp 16; Pulse Ox 98% ; bp 20:38 BP 112 / 63; Pulse 72; Resp 17 S; Pulse Ox 97% on R/A; rg5 ED Course: 15:40 Patient arrived in ED. ts1 15:41 Soham Han MD is Attending Physician. dasha 15:49 Triage completed. ko1 15:49 Arm band placed on right wrist. Patient placed in waiting room, Patient notified of ko1 wait time. 16:21 XRAY Chest (1 view) In Process Unspecified. EDMS 16:21 Alex Yen, BE is Primary Nurse. bp 16:41 Initial lab(s) drawn, by mi, sent to lab. EKG done, by ED staff, reviewed by Soham Han MD. Inserted saline lock: 22 gauge in left forearm, using aseptic technique. Blood collected. 17:23 Patient has correct armband on for positive identification. bp 17:55 Diana Burdick MD is Hospitalizing Provider. dasha 18:07 CT Stone Protocol In Process Unspecified. EDMS 19:07 Primary Nurse role handed off by Alex Yen, RN rv1 21:14 Chino Pearl, RN is Primary Nurse. rg5 21:15 No provider procedures requiring assistance completed. Patient admitted, IV remains in rg5 place. intact. 21:16 Provided Education on: need for admit. rg5 Administered Medications: 16:30 Drug: NS 0.9% IV 1000 ml IV at 1 bolus Per protocol; 1000 mL bolus Route: IV; Rate: 1 bp bolus; Site: left forearm; 16:30 Drug: Ondansetron IVP 4 mg IVP once; over 2 minutes Route: IVP; Site: left forearm; bp 17:24 Drug: Famotidine IVP 20 mg IVP once; dilute with 10 mL 0.9% NaCl; give over 2 minutes bp Route: IVP; Site: left forearm; 17:24 Drug: AZITHromycin PO 500 mg PO once Route: PO; bp 18:17 Drug: Aspirin PO Chewable Tablet 162 mg PO once Route: PO; bp Medication: 20:39 VIS not applicable for this client. rg5 Outcome: 17:58 Decision to Hospitalize by Provider. dasha 21:15 Admitted to Med/surg accompanied by tech, via wheelchair, room 201, with chart, rg5 21:15 Condition: stable 21:15 Instructed on the need for admit, Demonstrated understanding of instructions, 21:17 Patient left the ED. rg5 Signatures: Dispatcher [employer] EDSoham Victor MD MD cha Peltier, Brian, RN RN Shannan Mccarty RN RN ko1 Azra Queen rv1 Abbi Voss PAS PAS ts1 Chino Pearl, RN RN rg5
--- NOTE | 2023-10-18 17:58 | EDPHYS ---
Physician Documentation [facility] Name: Abdoul Hudson Age: 78 yrs Sex: Male : 1945 Arrival Date: 10/18/2023 Time: 15:36 Bed 17 Private MD: ED Physician Soham Han HPI: 10/17 17:07 This 78 yrs old Male presents to ER via Ambulatory with complaints of dasha Vomiting/Diarrhea, Body ache. 17:07 The patient presents to the emergency department with nausea, vomiting, diarrhea, that dasha is intermittent. Onset: The symptoms/episode began/occurred 3 day(s) ago. Possible causes: unknown, sick contacts. The symptoms are aggravated by nothing. The symptoms are alleviated by nothing. Associated signs and symptoms: Pertinent positives: diarrhea, nausea. Severity of symptoms: At their worst the symptoms were mild in the emergency department the symptoms are unchanged. The patient has experienced similar episodes in the past, a few times. Historical: - Allergies: 15:49 PENICILLINS; ko1 - PMHx: 15:49 Anxiety; carpal tunnel; diabetes mellitus; GERD; Hypercholesterolemia; Hypertensive ko1 disorder; PTSD; - PSHx: 15:49 Appendectomy; Cholecystectomy; ko1 - Immunization history:: Adult Immunizations up to date, Client reports receiving the 2nd dose of the Covid vaccine. - Infectious Disease History:: Denies. - Social history:: Smoking status: Patient denies any tobacco usage or history of. - Family history:: not pertinent. ROS: 17:07 Constitutional: Negative for fever, chills, and weight loss, Eyes: Negative for injury, dasha pain, redness, and discharge, ENT: Negative for injury, pain, and discharge, Neck: Negative for injury, pain, and swelling, Cardiovascular: Negative for chest pain, palpitations, and edema, Respiratory: Negative for shortness of breath, cough, wheezing, and pleuritic chest pain, Back: Negative for injury and pain, : Negative for injury, bleeding, discharge, and swelling, MS/Extremity: Negative for injury and deformity, Skin: Negative for injury, rash, and discoloration, Neuro: Negative for headache, weakness, numbness, tingling, and seizure, Psych: Negative for depression, anxiety, suicide ideation, homicidal ideation, and hallucinations, Allergy/Immunology: Negative for hives, rash, and allergies, Endocrine: Negative for neck swelling, polydipsia, polyuria, polyphagia, and marked weight changes, Hematologic/Lymphatic: Negative for swollen nodes, abnormal bleeding, and unusual bruising, 17:07 Abdomen/GI: Positive for nausea, diarrhea, Exam: 17:07 Constitutional: This is a well developed, well nourished patient who is awake, alert, dasha and in no acute distress. Head/Face: Normocephalic, atraumatic. Eyes: Pupils equal round and reactive to light, extra-ocular motions intact. Lids and lashes normal. Conjunctiva and sclera are non-icteric and not injected. Cornea within normal limits. Periorbital areas with no swelling, redness, or edema. ENT: Nares patent. No nasal discharge, no septal abnormalities noted. Tympanic membranes are normal and external auditory canals are clear. Oropharynx with no redness, swelling, or masses, exudates, or evidence of obstruction, uvula midline. Mucous membranes moist. Neck: Trachea midline, no thyromegaly or masses palpated, and no cervical lymphadenopathy. Supple, full range of motion without nuchal rigidity, or vertebral point tenderness. No Meningismus. Chest/axilla: Normal chest wall appearance and motion. Nontender with no deformity. No lesions are appreciated. Cardiovascular: Regular rate and rhythm with a normal S1 and S2. No gallops, murmurs, or rubs. Normal PMI, no JVD. No pulse deficits. Respiratory: Lungs have equal breath sounds bilaterally, clear to auscultation and percussion. No rales, rhonchi or wheezes noted. No increased work of breathing, no retractions or nasal flaring. Abdomen/GI: Soft, non-tender, with normal bowel sounds. No distension or tympany. No guarding or rebound. No evidence of tenderness throughout. Back: No spinal tenderness. No costovertebral tenderness. Full range of motion. Male : Normal genitalia with no discharge or lesions. Skin: Warm, dry with normal turgor. Normal color with no rashes, no lesions, and no evidence of cellulitis. MS/ Extremity: Pulses equal, no cyanosis. Neurovascular intact. Full, normal range of motion. Neuro: Awake and alert, GCS 15, oriented to person, place, time, and situation. Cranial nerves II-XII grossly intact. Motor strength 5/5 in all extremities. Sensory grossly intact. Cerebellar exam normal. Normal gait. Psych: Awake, alert, with orientation to person, place and time. Behavior, mood, and affect are within normal limits. 17:07 ECG was reviewed by the Attending Physician. Vital Signs: 15:45 BP 107 / 62; Pulse 104; Resp 18; Temp 98.4; Pulse Ox 97% on R/A; ko1 17:23 BP 102 / 62; Pulse 86; Resp 16; Pulse Ox 97% ; bp 19:00 BP 115 / 67; Pulse 83; Resp 16; Pulse Ox 98% ; bp 20:38 BP 112 / 63; Pulse 72; Resp 17 S; Pulse Ox 97% on R/A; rg5 MDM: 15:41 Patient medically screened. dasha 17:10 Differential diagnosis: Nonspecific abd pain, gastritis, pancreatitis, diverticulitis, dasha viral gastroenteritis, gastroenteritis. Data reviewed: vital signs, nurses notes, lab test result(s), EKG, radiologic studies, plain films. Consideration of Admission/Observation Escalation of care including admission/observation considered. I considered the following discharge prescriptions or medication management in the emergency department Medications were administered in the Emergency Department. See MAR. Independent interpretation of the following test(s) in the Emergency Department EKG: See my EKG interpretation above. Test considered but Not performed: Ultrasound NO ABD USG. Historians other than the Patient: WELL INFORMED. Care significantly affected by the following chronic conditions: Diabetes, Hypertension, Obesity, ANXIETY. Counseling: I had a detailed discussion with the patient and/or guardian regarding the historical points, exam findings, and any diagnostic results supporting the discharge/admit diagnosis, lab results, radiology results, the need for outpatient follow up, for definitive care, a family practitioner. 10/17 15:48 Order name: Basic Metabolic Panel; Complete Time: 17:45 [facility] 10/17 15:48 Order name: CBC with Diff; Complete Time: 17:19 [facility] 10/17 15:48 Order name: LFT's; Complete Time: 17:45 [facility] 10/17 15:48 Order name: Magnesium; Complete Time: 17:45 [facility] 10/17 15:48 Order name: NT PRO-BNP; Complete Time: 17:45 [facility] 10/17 15:48 Order name: PT-INR; Complete Time: 17:19 [facility] 10/17 15:48 Order name: Troponin HS; Complete Time: 17:45 [facility] 10/17 15:48 Order name: Lipase; Complete Time: 17:45 [facility] 10/17 15:48 Order name: Urinalysis w/ reflexes [facility] 10/17 15:48 Order name: SARS RAPID; Complete Time: 20:10 [facility] 10/17 15:48 Order name: Flu; Complete Time: 17:19 [facility] 10/17 19:37 Order name: CBC with Automated Diff [facility] 10/17 19:37 Order name: CBC with Automated Diff [facility] 10/17 19:37 Order name: Comprehensive Metabolic Panel [facility] 10/17 19:37 Order name: Comprehensive Metabolic Panel [facility] 10/17 19:37 Order name: Troponin High Sensitivity [facility] 10/17 19:37 Order name: Troponin High Sensitivity [facility] 10/17 19:37 Order name: Troponin High Sensitivity [facility] 10/17 15:48 Order name: XRAY Chest (1 view); Complete Time: 16:34 [facility] 10/17 17:54 Order name: CT Stone Protocol; Complete Time: 20:10 [facility] 10/17 15:48 Order name: EKG; Complete Time: 15:49 [facility] 10/17 19:37 Order name: CONS Physician Consult [facility] 10/17 15:48 Order name: Cardiac monitoring; Complete Time: 16:24 [facility] 10/17 15:48 Order name: EKG - Nurse/Tech; Complete Time: 16:40 [facility] 10/17 15:48 Order name: IV Saline Lock; Complete Time: 16:40 [facility] 10/17 15:48 Order name: Labs collected and sent; Complete Time: 16:40 [facility] 10/17 15:48 Order name: O2 Per Protocol; Complete Time: 16:24 [facility] 10/17 15:48 Order name: O2 Sat Monitoring; Complete Time: 16:24 [facility] EC:07 Rate is 88 beats/min. Rhythm is regular. QRS [place] is Normal. WA interval is normal. QRS dasha interval is normal. QT interval is normal. No Q waves. T waves are Normal. No ST changes noted. Clinical impression: NSR w/ Non-specific ST/T Changes and No evidence of ischemia. Interpreted by me. Reviewed by me. Administered Medications: 16:30 Drug: NS 0.9% IV 1000 ml IV at 1 bolus Per protocol; 1000 mL bolus Route: IV; Rate: 1 bp bolus; Site: left forearm; 16:30 Drug: Ondansetron IVP 4 mg IVP once; over 2 minutes Route: IVP; Site: left forearm; bp 17:24 Drug: Famotidine IVP 20 mg IVP once; dilute with 10 mL 0.9% NaCl; give over 2 minutes bp Route: IVP; Site: left forearm; 17:24 Drug: AZITHromycin PO 500 mg PO once Route: PO; bp 18:17 Drug: Aspirin PO Chewable Tablet 162 mg PO once Route: PO; bp Disposition Summary: 10/18/23 17:58 Hospitalization Ordered Notes: Hospitalization Status: Observation [facility] Provider: Diana Burdick cha Location: Telemetry/MedSurg (observation) dasha Condition: Fair dasha Problem: new dasha Symptoms: have improved dasha Bed/Room Type: Standard [facility] Room Assignment: 201(10/18/23 20:07) vc1 Diagnosis - Contact with and (suspected) exposure to other communicable diseases - COVID dasha - Acute kidney failure, unspecified - ON CHRONIC dasha - Other malaise and fatigue dasha - Vomiting dasha - Diarrhea, unspecified dasha - Abnormal levels of other serum enzymes - ELEVATED TROPONIN [facility] Discharge Instructions: - Discharge Summary Sheet [facility] - Food Choices to Help Relieve Diarrhea, Adult dasha - Diarrhea, Adult dasha - Diarrhea, Adult, [id number] [facility] - Aspirin and Your Heart dasha - COVID-19 dasha - COVID-19: What Your Test Results Mean - [facility] (01/11/2021) dasha - 10 Things You Can Do to Manage Your COVID-19 Symptoms at Home - [facility] (10/29/2020) dasha - Viral Illness, Adult dasha - COVID-19: Quarantine and Isolation - [facility] (07/13/2021) dasha - COVID-19: What to Do If You Are Sick - [facility] (07/05/2021) [facility] Forms: - Medication Reconciliation Form [facility] - SBAR form [facility] - Leadership Thank You Letter [facility] Prescriptions: - Paxlovid 300 mg (150 mg x 2)-100 mg Oral Tablet, Dose Pack - take 1 dose pack ORAL route as directed on dose pack take TWO 150 mg tablets of dasha nirmatrelvir with ONE 100 mg tablet of ritonavir twice daily for 5 days; 30 tablet; Refills: 0, Product Selection Permitted - ondansetron 4 mg Oral Tablet,disintegrating - take 1 tablet ORAL route every 8-12 hours for 5 days PRN NAUSEA; 20 tablet; dasha Refills: 0, Product Selection Permitted - Pepcid 20 mg Oral tablet - take 1 tablet ORAL route every 12 hours for 30 days; 60 tablet; Refills: 0, [facility] Product Selection Permitted - Zithromax Z-Pepe 250 mg Oral Tablet - take 1 tablet ORAL route as directed for 5 days Day 1 - take two (2) tablets [facility] one time. Day 2, 3, 4 , 5 take one (1) tablet once daily.; 6 tablet; Refills: 0, Product Selection Permitted Signatures: Dispatcher [employer] EDMS Soham Han MD MD cha Peltier, Brian RN RN bp Justina Quintero RN RN vc1 Shannan Jacob RN RN ko1 Corrections: (The following items were deleted from the chart) 15:49 15:49 BASIC METABOLIC PANEL+C.LAB.BRZ ordered. EDMS EDMS 15:49 15:49 CBC+H.LAB.BRZ ordered. EDMS EDMS 15:49 15:49 HEPATIC FUNCTION+C.LAB.BRZ ordered. EDMS EDMS 15:49 15:49 MAGNESIUM+C.LAB.BRZ ordered. EDMS EDMS 15:49 15:49 PROBNP+C.LAB.BRZ ordered. EDMS EDMS 15:49 15:49 PROTIME (+INR)+COAG.LAB.BRZ ordered. EDMS EDMS 15:49 15:49 Troponin High Sensitivity+C.LAB.BRZ ordered. EDMS EDMS 15:49 15:49 LIPASE+C.LAB.BRZ ordered. EDMS EDMS 15:49 15:49 Urinalysis+U.LAB.BRZ ordered. EDMS EDMS 15:49 15:49 SARS-COV-2 Antigen Rapid+I.LAB.BRZ ordered. EDMS EDMS 15:49 15:49 Influenza Screen (A \T\ B)+BA.LAB.BRZ ordered. EDMS EDMS 20:07 17:58 dasha vc1
[2023-10-18] MEDS ORDERED: ASPIRIN 81 MG CHEWABLE TABLET ONE (18:13)
--- NOTE | 2023-10-18 18:24 | RAD REPORT ---
EXAM DESCRIPTION: CTStone Protocol - 10/18/2023 6:06 pm CLINICAL HISTORY: FLANK PAIN COMPARISON: CT ABDOMEN PELVIS WO CONTRAST dated 07/17/2011 TECHNIQUE: CT of the abdomen and pelvis was performed. All CT scans are performed using dose optimization technique as appropriate and may include automated exposure control or mA/KV adjustment according to patient size. FINDINGS: Lower chest: Multi-vessel coronary disease. Liver: Nodular liver contour. Biliary: Cholecystectomy. Extrahepatic biliary duct dilatation is likely related to the postcholecyst ectomy state. Stomach: No significant focal abnormality. Duodenum: No significant focal abnormality. Pancreas: No significant abnormality. Spleen: No significant abnormality. Adrenal: No suspicious lesions. Kidney/ureter: No hydronephrosis. No renal calculi. Mild bilateral perinephric stranding. Retroperitoneum: No retroperitoneal adenopathy. Vascular: Atherosclerosis without aneurysm. Bowel: No significant focal abnormality. No appendicitis. Peritoneum: No ascites or free air. Bladder: Grossly unremarkable. Reproductive: No adnexal masses. Bones: No acute fracture. 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 Other: n/a IMPRESSION: No acute intra-abdominal or pelvic finding. No renal or ureteral calculi.
--- NOTE | 2023-10-18 19:25 | P.HP ---
Certification for Inpatient Patient admitted to: Observation With expected LOS: <2 Midnights Patient will require the following post-hospital care: None Practitioner: I am a practitioner with admitting privileges, knowledge of patient current condition, hospital course, and medical plan of care. Services: Services provided to patient in accordance with Admission requirements found in Title 42 Section 412.3 of the Code of Federal Regulations Patient History Date of Service: 10/18/23 Reason for admission: Vomiting and diarrhea History of Present Illness: 78-year-old male with past medical history of HTN/DM/neuropathy, former smoker presented after developing weakness malaise as well as nausea and vomiting with diarrhea since the last 3 days. Patient admits to generalized bodyaches. He denies any cough. He states he has friends who recently have COVID. He self took a home COVID test and said the result was positive. He presented to the hospital because of the positive COVID home test and presence of symptom. On presented to the ED, vital signs were stable, afebrile, O2 sat normal at 95 on room air. Chest x-ray clear. CT of the abdomen and pelvics was normal except for mild perinephric stranding bilaterally. BMP shows elevated creatinine of 2.15, previous creatinine of 1.2 about 2 years ago. Troponin mildly elevated at 85. Patient denies any prior history of CAD Allergies Penicillins Allergy (Verified 08/17/21 17:45) Hives/Rash Home Medications: Aspirin [Aspirin EC 81 MG] 81 mg PO DAILY 08/17/21 Cyanocobalamin (Vitamin B-12) [B-12] 500 mcg PO DAILY 08/17/21 Finasteride [Proscar] 5 mg PO DAILY 08/17/21 Lisinopril [Zestril] 10 mg PO DAILY 08/17/21 Metformin HCl 1,000 mg PO BID 08/17/21 Omeprazole 20 mg PO DAILY 08/17/21 Tamsulosin [Flomax*] 0.4 mg PO BEDTIME 08/17/21 glipiZIDE [Glipizide] 5 mg PO BID 08/17/21 Atorvastatin Calcium [Lipitor*] 20 mg PO BEDTIME #30 tab 08/18/21 Iron Polysaccharide Complex [Polysaccharide Iron] 150 mg PO DAILY #30 capsule 08/18/21 - Past Medical/Surgical History Diabetic: Yes -: Hypertension -: Hyperlipidemia -: DM type II -: GERD -: History of GI bleed -: History of hydronephrosis -: BPH -: Posttraumatic stress disorder -: Iron deficiency anemia -: Generalized anxiety disorder -: Colonoscopy - Family History Family History: Reviewed- Non-Contributory - Social History Smoking Status: Former smoker Smoking therapy provided: No Patient receptive to therapy: No Alcohol use: No CD- Drugs: No Caffeine use: No Place of Residence: Home Review of Systems General: Weakness, Malaise Gastrointestinal: Nausea, Vomiting, Diarrhea Neurological: Weakness Physical Examination - Physical Exam General: Alert, Oriented x3, Cooperative HEENT: Atraumatic, Normocephalic, PERRLA, Mucous membr. moist/pink Neck: Supple, 2+ carotid pulse no bruit, JVD not distended Respiratory: Clear to auscultation bilaterally, Normal air movement Cardiovascular: Regular rate/rhythm, Normal S1 S2 Capillary refill: <2 Seconds Gastrointestinal: Normal bowel sounds, Soft and benign, Non-distended, W/out splenomegaly, No ascites Musculoskeletal: No clubbing, No swelling Integumentary: No rashes, No tenderness/swelling Neurological: Normal speech, Normal strength at 5/5 x4 extr, Sensation intact, Cranial nerves 3-12 intact - Studies Laboratory Data (last 24 hrs) 10/18/23 10/18/23 10/18/23 16:40 16:40 16:40 WBC 6.20 Hgb 13.3 L Hct 40.8 Plt Count 142 L PT 11.2 INR 1.02 Sodium 134 L Potassium 3.8 BUN 35 H Creatinine 2.15 H Glucose 170 H Magnesium 1.6 Total Bilirubin 0.5 AST 38 H ALT 40 Alkaline Phosphatase 80 Lipase 78 H Microbiology Data (last 24 hrs): 10/18/23 16:40 Nasopharnyx Influenza Type A Antigen Screen - Final 10/18/23 16:40 Nasopharnyx Influenza Type B Antigen Screen - Final Assessment and Plan - Problems (Diagnosis) (1) Viral enteritis Current Visit: Yes Status: Acute (2) Diabetes mellitus type 2 in nonobese Current Visit: No Status: Acute (3) Essential hypertension Current Visit: No Status: Acute - Plan Impression Viral enteritispresumed Acute renal failure Hypertension DM HLD GERDstable Positive home COVID test-repeat result in ER negative Positive troponinmild, may be demand mediated PLAN Will admit to observation Start gentle IV fluid with normal saline Obtain urine studies for fractional excretion of sodium Nephrology consult in a.m. Monitor creatinine trend Empirical antiemetic Monitor diarrhea if recurrent follow stool for ova and parasite ADA diet Full code Subcutaneous Lovenox for DVT prophylax Resume home meds Total time spent review of record discussion greater than 60 minutes - Advance Directives Does patient have a Living Will: No Does patient have a Durable POA for Healthcare: No - Code Status/Comfort Care Code Status: Full Code Physician Review: Patient Assessed, Agree with Above Assessment and Plan Critical Care: No Time Spent Managing Pts Care (In Minutes): 70
[2023-10-18] MEDS ORDERED: ONDANSETRON 4 MG/2 ML VIAL IV PRN (19:27)
[2023-10-18] MEDS ORDERED: ACETAMINOPHEN 500 MG TAB PO PRN (19:27)
[2023-10-18] MEDS ORDERED: MORPHINE 2 MG/ML SYR IV PRN (19:27)
[2023-10-18] MEDS ORDERED: ALBUTEROL 2.5 MG/3 ML NEB SOL NEB PRN (19:27)
[2023-10-18] MEDS: ASPIRIN EC 81 MG TAB PO SCH (19:30)
[2023-10-18] MEDS ORDERED: BENZONATATE 100 MG CAP PO PRN (19:30)
[2023-10-18] MEDS ORDERED: guaiFENesin 100 MG/5 ML UCUP PO PRN (19:30)
[2023-10-18] MEDS ORDERED: HYDRALAZINE HCL 20 MG/ML VIAL IV PRN (19:30)
[2023-10-18 21:37] VITALS: O2SAT 97
[2023-10-18] MEDS: NA CHLORIDE 0.9% 1,000 ML IV SCH (22:12)
[2023-10-18] MEDS: FAMOTIDINE 20 MG TAB PO SCH (22:12)
[2023-10-18 23:31] VITALS: BMI 25.7
[2023-10-19] MEDS: INSULIN REGULAR (HUMAN) 100 UNIT/ML SQ SCH (00:44)
[2023-10-19] MEDS: MELATONIN 5 MG TABLET PO PRN (00:46)
[2023-10-19] MEDS ORDERED: HOME MED 1 EA UNK (Omeprazole [Omeprazole] 20 MG Capsule.Dr) PO PRN (02:01)
[2023-10-19] MEDS ORDERED: PANTOPRAZOLE 40MG TABLET PO PRN (02:05)
[2023-10-19 03:07] LABS: Specific Gravity 1.019 (1.005-1.030); Sqamous Epithelial <5 /HPF (None Seen); Urine Bacteria None Seen /HPF (<20); Urine Bilirubin NEGATIVE (Negative); Urine Blood Negative (Negative); Urine Clarity Clear (Clear); Urine Color Light-Yellow (Yellow); Urine Culture Reflex Order NOT NEEDED; Urine Glucose TRACE (Negative); Urine Ketones NEGATIVE (Negative); Urine Microscopic Reflex YN ORDER UMIC; Urine Mucus Slight /HPF (None Seen); Urine Nitrite NEGATIVE (Negative); Urine Protein TRACE (Negative); Urine RBC <5 /HPF (None Seen); Urine Urobilinogen Normal (Normal); Urine WBC <5 /HPF (<5)
[2023-10-19 07:55] LABS: Absolute Eosinophils 0.2 K/uL (0-0.5); Absolute Lymphocytes (CBC) 1.4 K/uL (0.7-4.9); Absolute Monocytes 0.8 K/uL (0.1-1.3); Absolute Neutrophil 3.2 K/uL (1.8-8.0); Basophils % 0.5 % (0-1.3); Eosinophils % 4.2 % (0-4.4); Hematocrit 37.3 % (39.6-49.0); Hemoglobin 12.4 g/dL (13.6-17.9); Lymphocytes % 24.9 % (15.3-44.8); MCH 30.4 pg (27.0-35.0); MCHC 33.1 g/dL (32.0-36.0); MCV 91.9 fL (80-100); MPV 8.3 fL (7.6-11.3); Monocytes % 13.9 % (3.3-12.3); Neutrophils % 56.5 % (41.7-73.7); Platelets 124 thou/uL (152-406); RBC Red Blood Cell Count 4.06 M/uL (4.33-5.43); Red Cell Distribution Width 14.3 % (12.1-15.2)
[2023-10-19 08:07] LABS: Albumin 3.3 g/dL (3.4-5.0); Albumin/Globulin Ratio 0.9 (1.1-1.8); Anion Gap 7.1 mEq/L (5.0-15.0); Bilirubin Total 0.6 mg/dL (0.2-1.0); Globulin 3.8 g/dL (2.3-3.5); Potassium 4.1 mEq/L (3.5-5.1); Protein, Total 7.1 g/dL (6.4-8.2)
[2023-10-19] MEDS: TAMSULOSIN 0.4 MG SR CAP PO SCH (08:15)
[2023-10-19] MEDS: FINASTERIDE 5 MG TAB PO SCH (08:15)
[2023-10-19] MEDS: METFORMIN HCL 500 MG TAB PO SCH (08:15)
[2023-10-19] MEDS: glipiZIDE 5 MG TAB PO SCH (08:16)
[2023-10-19] MEDS: LEVOTHYROXINE SOD 0.025 MG TAB PO SCH (08:16)
[2023-10-19] MEDS: ENOXAPARIN 30 MG/0.3 ML SQ SCH (08:17)
[2023-10-19] MEDS: PNEUMOCOCCAL VACCINE 0.5 ML IMVAC ONE (08:18)
[2023-10-19] MEDS ORDERED: ENOXAPARIN 40 MG/0.4 ML SQ SCH (09:00)
[2023-10-19] MEDS ORDERED: HOME MED 1 EA UNK (Alfuzosin Hcl [Alfuzosin Hcl] 10 MG Tab.Er.24h) PO SCH (09:00)
--- NOTE | 2023-10-19 09:55 | P.PN ---
Subjective Date of Service: 10/19/23 Chief Complaint: Vomiting and diarrhea Pt is resting comfortably in bed. He is feeling better. Pt denies any GI symptoms or chest pain. Cr improved with IVF. Troponin is elevated but non- trending ( 85 -> 72 -> 79). Waiting for Cardiology eval. No other complaints. Review of Systems General: Unremarkable Eyes: Unremarkable ENT: Unremarkable Respiratory: Unremarkable Cardiovascular: Unremarkable Gastrointestinal: Unremarkable Genitourinary: Unremarkable Musculoskeletal: Unremarkable Integumentary: Unremarkable Neurological: Unremarkable Lymphatics: Unremarkable Physical Examination - Vital Signs Temperature: 97.5 F Blood Pressure: 113/65 Pulse: 65 Respirations: 16 Pulse Ox (%): 97 - Physical Exam General: Alert, In no apparent distress, Oriented x3 HEENT: Atraumatic, Normocephalic, PERRLA Neck: Supple, 2+ carotid pulse no bruit, JVD not distended Respiratory: Clear to auscultation bilaterally, Normal air movement Cardiovascular: No edema, Normal pulses, Regular rate/rhythm, Normal S1 S2 Capillary refill: <2 Seconds Gastrointestinal: Normal bowel sounds, Soft and benign, Non-distended Musculoskeletal: No clubbing, No swelling, No contractures Integumentary: No rashes, No breakdown, No significant lesion, No tenderness/swelling, No erythema Neurological: Normal gait, Normal speech, Normal strength at 5/5 x4 extr, Normal tone Lymphatics: No axilla or inguinal lymphadenopathy - Studies Laboratory Data (last 24 hrs) 10/18/23 10/18/23 10/18/23 16:40 16:40 16:40 WBC 6.20 Hgb 13.3 L Hct 40.8 Plt Count 142 L PT 11.2 INR 1.02 Sodium 134 L Potassium 3.8 BUN 35 H Creatinine 2.15 H Glucose 170 H Magnesium 1.6 Total Bilirubin 0.5 AST 38 H ALT 40 Alkaline Phosphatase 80 Lipase 78 H Microbiology Data (last 24 hrs): 10/18/23 16:40 Nasopharnyx Influenza Type A Antigen Screen - Final 10/18/23 16:40 Nasopharnyx Influenza Type B Antigen Screen - Final Assessment And Plan - Plan Possible Viral enteritis: Pt is feeling better. He denies any nausea, vomiting or diarrhea. Will continue IVF and prn antiemetic. He tolerated his breakfast this am. Acute renal failure: Improved. Cr is 1.35 <- 2.15. Will continue IVF, avoid nephrotoxins andmonitor renal function. Hypertension: Continue home med DM II: continue accuchek, SSI and ADA diet. Hyponatremia: Na is 134. Will continue IVF. HLD: Statin GERD: protonix Questionable COVID: He tested positive at home and repeat COVID test in the ER is negative. It Elevated troponin: Likely due to demand ischemia. Consulted Cardiology. Will trend troponin ( 85 -> 72 -> 79). DVT ppx: lovenox Code: Full code Dispo: Pending hospital course. Physician Review: Patient Assessed, Agree with Above Assessment and Plan
--- NOTE | 2023-10-19 10:42 | P.CNS ---
Date of Consult: 10/19/23 Chief Complaint: Vomiting and diarrhea History of Present Illness: Patient with PMH of HTN, HLD, presented with generalized weakness, joint pain, tested positive for COVID at home, he denies having chest pain, no palpitations, no dizzy spells, no SOB, no syncope. Allergies Penicillins Allergy (Verified 08/17/21 17:45) Hives/Rash shrimp Allergy (Verified 10/18/23 21:53) Hives/Rash Home Medications: Cyanocobalamin (Vitamin B-12) [B-12] 500 mcg PO DAILY 08/17/21 Finasteride [Proscar] 5 mg PO DAILY 08/17/21 Lisinopril [Zestril] 10 mg PO DAILY 08/17/21 Metformin HCl 500 mg PO DAILY 08/17/21 Omeprazole 20 mg PO DAILY PRN 08/17/21 glipiZIDE [Glipizide] 5 mg PO BID 08/17/21 Atorvastatin Calcium [Lipitor*] 20 mg PO BEDTIME #30 tab 08/18/21 Alfuzosin HCl 10 mg PO DAILY 10/18/23 Cholecalciferol (Vitamin D3) [Vitamin D3] 1 tab PO DAILY 10/18/23 Iron 65 mg PO DAILY 10/18/23 Levothyroxine Sodium 1 tab PO DAILY 10/18/23 - Past Medical/Surgical History Diabetic: Yes -: Hypertension -: Hyperlipidemia -: DM type II -: GERD -: History of GI bleed -: History of hydronephrosis -: BPH -: Posttraumatic stress disorder -: Iron deficiency anemia -: Generalized anxiety disorder -: Colonoscopy - Social History Alcohol use: No CD- Drugs: No Caffeine use: No Place of Residence: Home Review of Systems 10-point ROS is otherwise unremarkable Physical Examination Temp Pulse Resp BP Pulse Ox 97.5 F 65 16 113/65 97 10/19/23 09:55 10/19/23 09:55 10/19/23 09:55 10/19/23 09:55 10/19/23 09:55 General: Alert, In no apparent distress HEENT: Atraumatic, PERRLA, Mucous membr. moist/pink, EOMI, Sclerae nonicteric Neck: Supple, 2+ carotid pulse no bruit, No LAD, Without JVD or thyroid abnormality Respiratory: Clear to auscultation bilaterally, Normal air movement Cardiovascular: Regular rate/rhythm, Normal S1 S2 Gastrointestinal: Normal bowel sounds, No tenderness Musculoskeletal: No tenderness Integumentary: No rashes Neurological: Normal gait, Normal speech, Normal tone, Normal affect Lymphatics: No axilla or inguinal lymphadenopathy Laboratory Data (last 24 hrs) 10/18/23 10/18/23 10/18/23 16:40 16:40 16:40 WBC 6.20 Hgb 13.3 L Hct 40.8 Plt Count 142 L PT 11.2 INR 1.02 Sodium 134 L Potassium 3.8 BUN 35 H Creatinine 2.15 H Glucose 170 H Magnesium 1.6 Total Bilirubin 0.5 AST 38 H ALT 40 Alkaline Phosphatase 80 Lipase 78 H - Problems (1) Type 2 SC (myocardial infarction) Current Visit: Yes Status: Acute Plan: Patient had mild troponin leak with no significant delta, he is chest pain free, leak is most likely secondary to LLUVIA. continue ASA 81 mg daily continue lipitor outpatient follow up with cardiology for echo and stress test No further inpatient cardiac work up is needed. (2) Essential hypertension Current Visit: No Status: Acute Plan: Patient BP is normal here in the hospital, advice patient to follow up with PCP to re consider starting his outpatient BP medications. (3) Hyperlipidemia Current Visit: No Status: Acute Plan: Continue Lipitor. Lipid panel in 3 months.
--- NOTE | 2023-10-19 11:12 | EKG ---
Test Date: 2023-10-18 Test Time: 16:36:55 [employer] Operator: BP MEASUREMENT RESULTS: Intervals: Rate: 88 MS: 160 QRSD: 82 QT: 354 QTc: 428 [place]: P: 51 MS: 160 QRS: 61 T: 36 INTERPRETIVE STATEMENTS: Normal sinus rhythm Anterior infarct, age undetermined Abnormal ECG Compared to ECG 08/17/2021 10:54:03 Myocardial infarct finding now present Electronically Signed On 10-19-23 11:11:52 CDT by Maurilio Hernandez
--- NOTE | 2023-10-19 12:26 | P.DS ---
Admission Date: 10/18/23 Discharge Date: 10/19/23 Disposition: ROUTINE DISCHARGE Discharge Condition: GOOD Reason for Admission: Vomiting and diarrhea Brief History of Present Illness: 78-year-old male with past medical history of HTN/DM/neuropathy, former smoker presented after developing weakness malaise as well as nausea and vomiting with diarrhea since the last 3 days. Patient admits to generalized bodyaches. He denies any cough. He states he has friends who recently have COVID. He self took a home COVID test and said the result was positive. He presented to the hospital because of the positive COVID home test and presence of symptom. On presented to the ED, vital signs were stable, afebrile, O2 sat normal at 95 on room air. Chest x-ray clear. CT of the abdomen and pelvics was normal except for mild perinephric stranding bilaterally. BMP shows elevated creatinine of 2.15, previous creatinine of 1.2 about 2 years ago. Troponin mildly elevated at 85. Patient denies any prior history of CAD Hospital Course: Pt is a 78yo male with past medical history of HTN/DM/neuropathy, former smoker who presented after developing weakness malaise as well as nausea, vomiting, and diarrhea for 3 days. Pt reported that he tested positive for COVID at home but the COVID test in ER was negative. We admitted pt for viral enteritis and gave IVF and prn antiemetic. LLUVIA resolved with IVF ( cr trend: 1.19<- 1.35 <- 2.15). Pt was advised to drink water at home. He also had elevated trponin that was non-trending. Cardiology evaluated pt and attributed the elevated troponin to LLUVIA. He was advised to follow up with Cardiology in clinic for NM stress test and Echo. We stopped lisinopril due to LLUVIA and started amlodipine for BP control. Pt was in NAD prior to discharge. Vital Signs/Physical Exam: Temp Pulse Resp BP Pulse Ox 97.5 F 65 16 113/65 97 10/19/23 09:55 10/19/23 09:55 10/19/23 09:55 10/19/23 09:55 10/19/23 09:55 Laboratory Data at Discharge: WBC 5.70 thou/uL (4.3-10.9) 10/19/23 07:39 Hgb 12.4 g/dL (13.6-17.9) L 10/19/23 07:39 Hct 37.3 % (39.6-49.0) L 10/19/23 07:39 Plt Count 124 thou/uL (152-406) L 10/19/23 07:39 PT 11.2 SECONDS (9.4-12.5) 10/18/23 16:40 INR 1.02 10/18/23 16:40 Sodium 138 mEq/L (136-145) 10/19/23 07:39 Potassium 4.1 mEq/L (3.5-5.1) 10/19/23 07:39 BUN 25 mg/dL (7-18) H 10/19/23 07:39 Creatinine 1.35 mg/dL (0.70-1.30) H 10/19/23 07:39 Glucose 157 mg/dL (74-106) H 10/19/23 07:39 Magnesium 1.6 mg/dL (1.6-2.4) 10/18/23 16:40 Total Bilirubin 0.6 mg/dL (0.2-1.0) 10/19/23 07:39 AST 32 U/L (15-37) 10/19/23 07:39 ALT 39 U/L (16-61) 10/19/23 07:39 Alkaline Phosphatase 84 U/L (45-117) 10/19/23 07:39 Lipase 78 U/L (13-75) H 10/18/23 16:40 Home Medications: Cyanocobalamin (Vitamin B-12) [B-12] 500 mcg PO DAILY 08/17/21 Finasteride [Proscar] 5 mg PO DAILY 08/17/21 Metformin HCl 500 mg PO DAILY 08/17/21 Omeprazole 20 mg PO DAILY PRN 08/17/21 glipiZIDE [Glipizide] 5 mg PO BID 08/17/21 Atorvastatin Calcium [Lipitor*] 20 mg PO BEDTIME #30 tab 08/18/21 Alfuzosin HCl 10 mg PO DAILY 10/18/23 Cholecalciferol (Vitamin D3) [Vitamin D3] 1 tab PO DAILY 10/18/23 Iron 65 mg PO DAILY 10/18/23 Levothyroxine Sodium 1 tab PO DAILY 10/18/23 Amlodipine [Norvasc*] 10 mg PO DAILY 30 Days #30 tab 10/19/23 New Medications: Amlodipine [Norvasc*] 10 mg PO DAILY 30 Days #30 tab Physician Discharge Instructions: Continue ad mica activity as tolerated. Stop taking lisinopril. Take Amlodipine 10mg po daily. Follow up with PCP in 1 - 2 weeks. Follow up with Dr. Hernandez in 1 weeks for Echo and NM stress test. Diet: AHA Activity: Ad mica Followup: Maurilio Hernandez MD [ACTIVE - CAN ADMIT] - NONE,NONE [Primary Care Provider] -
[2023-10-19 16:35] VITALS: BP 119/63; TEMP 97.4
[2023-10-19 17:53] LABS: Anion Gap 8.2 mEq/L (5.0-15.0); Potassium 4.2 mEq/L (3.5-5.1)
[2023-10-19] MEDS ORDERED: ATORVASTATIN 20 MG TAB PO SCH (21:00)
--- NOTE | 2023-10-19 23:12 | CON ---
Date of Consultation: 10/19/2023 Chief Complaint: Nausea, vomiting, volume depletion. Subjective: Patient presented to the hospital with vomiting and diarrhea. He was found to have acut e kidney injury. Serum creatinine was elevated up to 2.15, previous creatinine level was 1.2 accordi ng to lab from 2 years ago. Patient is a 78-year-old man with past medical history of hypertension, diabetes mellitus, diabetic neuropathy, former smoker. He presented to the hospital because of weakn ess, malaise, nausea, vomiting with diarrhea. He denied melena, hematemesis, hematuria, dysuria. Th e patient was admitted to the hospital because of generalized body ache and weakness. He was found t o have acute kidney injury, which is nonoliguric and patient was started on IV fluids for hydration. He denies cough, hemoptysis. He stated that he had a sick contact with his friend who had COVID inf ection. The patient apparently had a home COVID test done and said that result was positive and he p resented to the hospital because of positive COVID test done at home as well as presence of symptoms related to generalized weakness and malaise. In the emergency room, patient had O2 sats of 95% on ro om air. Chest x-ray was clear. CT scan of the abdomen and pelvis was normal except mild perinephric stranding bilaterally. Basic metabolic panel was done and it showed elevated creatinine level of 2. 15 and troponin was mildly elevated. The patient has history of diabetes mellitus and he is taking m etformin as well as glipizide. For blood pressure, he is taking lisinopril. The patient has history of BPH and was taking Flomax. He has history of hyperlipidemia and is on Lipitor. Patient is [facility] for history of BPH. He denies lower urinary tract symptoms and denies incomplete void ing. Past Medical History: Hypertension, hyperlipidemia, BPH, diabetes mellitus with renal manifestation. Baseline creatinine level 1.2, GERD, history of GI bleeding, history of hydronephrosis, posttraumat ic stress disorder, iron deficiency anemia, history of generalized anxiety disorder. Family History: No kidney disease in the family. Social History: Former smoker. Denies alcohol. Review of Systems: Complains of generalized weakness. Nausea, vomiting, diarrhea. Denies hematuria, dysuria. Cardiovascular: Denies syncope, chest pain, palpitation. Respiratory: Denies wheezing, cough, hemoptysis. GI: Had nausea, vomiting, although it resolved. All other systems reviewed and all are negative. Physical Examination: GENERAL: Patient is alert, oriented x3. HEENT: Atraumatic, normocephalic. Anicteric sclerae. Neck: Supple. No JVD. No bruits. Respiratory: Clear to auscultation bilaterally. Heart: S1, S2. Regular rate and rhythm. Abdomen: Soft, benign, nontender. Extremities: No edema. No clubbing. No cyanosis. Neurological: No tremor. Normal speech and cranial nerves intact. Laboratory Data: WBC 6.2, hemoglobin 13.3, platelet count 142,000. PT 11.2, INR 1.02. Sodium 134, potassium 3.8, BUN 35, creatinine 2.15, glucose 170, magnesium 1.6, total bilirubin 0.5, lipase . Impression And Plan: The patient presented to the hospital with viral enteritis. He was started on IV fluids. Renal function is improving. The patient has history of diabetes mellitus and the patien t needs further workup to check urine protein and creatinine ratio. The patient has history of essen tial hypertension. JENAE inhibitor was on hold due to acute kidney injury. The patient had positive C OVID at home, although ER showed negative COVID test. Further recommendation per primary team. The patient had mildly elevated troponin level and he needs further workup with primary team and cardiolo gist. Acute kidney injury secondary to prerenal azotemia, nonoliguric ATN in setting of volume depletion se condary to GI loss. The patient has history of diabetes mellitus. Recommend to hold metformin and continue hydration and avoid nonsteroidal anti-inflammatory medication. The patient will need to the schedule follow up [facility] outpatient for further recommendation and further workup. The patient will need ultras ound. This can be done outpatient. During this admission, patient had a CT scan done without contra st to rule out hydronephrosis and assess for GI pathology to rule out bowel obstruction. EB/MODL Voice ID: [id number] Report ID: [id number]
== END 2023-10-19 18:21 | disposition home or self-care (01) ==
LOC: ER 15:36 → ERHOLD 19:27 → 2ND 21:06
PROVIDERS: ADMIT Internal Medicine; ATTEND Hospitalist
DX: A08.4 Viral intestinal infection, unspecified (principal); N17.9 Acute kidney failure, unspecified; E86.9 Volume depletion, unspecified; R11.2 Nausea with vomiting, unspecified; R53.1 Weakness; R53.81 Other malaise; K21.9 Gastro-esophageal reflux disease without esophagitis; E11.9 Type 2 diabetes mellitus without complications; R19.7 Diarrhea, unspecified; I10 Essential (primary) hypertension; E78.5 Hyperlipidemia, unspecified; E11.40 Type 2 diabetes mellitus with diabetic neuropathy, unspecified; F43.10 Post-traumatic stress disorder, unspecified; F41.9 Anxiety disorder, unspecified; D50.9 Iron deficiency anemia, unspecified; Z88.0 Allergy status to penicillin; Z79.82 Long term (current) use of aspirin; Z91.013 Allergy to seafood; Z87.891 Personal history of nicotine dependence; Z20.822 Contact with and (suspected) exposure to COVID-19
CPT/HCPCS: 36415; 71045; 74176; 76377; 80048; 80053; 80076; 81001; 82947; 83690; 83735; 83880; 84484; 85025; 85610; 87804; 87811; 93005; 96374; 96375; 99285; J1650; J2405; J7030

== ENCOUNTER 2024-06-06 20:25 | Emergency (ER) | payer OTHER ==
--- OUTSIDE RECORDS SUMMARY | 2024-06-06 20:49 | XMS REPORT | Continuity of Care Document ---
Author Name Unknown Address [address] [place] [address] [facility] thconnect Address [address] [place] [address] Care Team Providers Care Vocal Music Teacher Name Role Phone [facility], [facility] Primary Care Physician + Emma Stevens MD Attending Clinician [phone] EMMA STEVENS Attending Clinician Unavailable 2, [facility] Attending Clinician Unavailable Madhavi Moses Attending Clinician Unav ailable MADHAVI CANCINO Attending Clinician Unavaila ble Madhavi Moses Attending Clinician [phone] Doctor Unassigned, [place] Attending Clinician U navailEmma Lopez MD Attending Clinician [phone], [facility] Proc Attending Clinician Unavailab le 2, [facility] Attending Clinician Unavailable Musa Ballard RN Attending Clinician Unavail able MELO BETANCOURT Attending Clinician Unavailable MELO BETANCOURT Attending Clinician Unavailable Leonides Womack MD Attending Clinician [phone] EMMA STEVENS Admitting Clinician Unavailable Emma Stevens MD Admitting Clinician [phone] MELO BETANCOURT Admitting Clinician Unavailable Payers Payer Name Policy Type Policy Number Effective Date Expirati on Date Source [facility] [id number] 2000 00:00:00 Problems Condition Name Condition Details Condition Category Status Onset Date Resolution Date Last Treatment Date Treating Clinician Comments Source 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 2-20 00:00: 00 [facility] Benign prostatic hyperplasi a with nocturia Benign prostatic hyperplasi a with nocturia Disease Active 1-28 00:00: 00 [facility] Gastroente ritis Gastroente ritis Disease Active 2020-04 2-16 00:00: 00 [facility] Allergies, Adverse Reactions, Alerts Allergy Name Allergy Type Status Severity Reaction(s) Onset Date Inactive Date Treating Clinician Comments Source PENICILL IN DRUG INGREDI Active Med Hives 2020-04 2 00:00: 00 [facility] Penicill in Drug Allergy Active Hives 2020-04 00:00: 00 [facility] SHRIMP DRUG INGREDI Active Hives 824 00:00: 00 [facility] Shrimp Propensi ty to adverse reaction s Active Hives 8 00:00: 00 [facility] Social History Social Habit Start Date Stop Date Quantity Comments Source Sexual orientation [facility] History of tobacco use Current smoker [facility] History of Social function 2023-06-12 00:00:00 2023-06-12 00:00:00 [facility] Exposure to SARS-CoV-2 (event) 2022-06-25 00:00:00 2022-07-05 09:30:00 Not sure [facility] Tobacco Comment 2022-03-30 00:00:00 2022-03-30 00:00:00 pt quit smoking 48 years ago [facility] Tobacco use and exposure 2022-03-30 00:00:00 2022-03-30 00:00:00 Smokeless tobacco non-user [facility] Sex assigned at 1945 00:00:00 1945 00:00:00 [facility] Smoking Status Start Date Stop Date Source Ex-smoker 2022-03-30 00:00:00 2022-03-30 00:00:00 [facility] Medications Ordered Medication Name Filled Medication Name Start Date Stop Date Current Medication? Ordering Clinician Indication Dosage Frequency Signature (SIG) Comments Components Source ondansetron (ZOFRAN (PF)) injection 4 mg 06-05 18:35: 42 06-05 22:39 :30 No 4mg 4 mg, Slow IV Push, Q4HPRN, 1 dose, Starting on Evelia 06/05/24 at 1235, Until Evelia 06/05/24 at 1639, Administer over 2-5 Minutes, 2 mL, [facility] Recovery [facility] lidocaine (XYLOCAINE) 2 % jelly URO-JET 06-05 18:27: 00 06-05 22:39 :30 No PRN, Starting on Evelia 06/05/24 at 1227, Until Evelia 06/05/24 at 1639, Routine, Intra-op [facility] sodium chloride 0.9 % irrigation solution 06-05 18:18: 00 06-05 18:41 :59 No PRN, Starting on Evelia 06/05/24 at 1218, Until Evelia 06/05/24 at 1241, Intra-op [facility] aspirin 81 mg chewable tablet 06-05 12:41: 59 Yes 81mg Take 1 tablet by mouth weekly. [facility] ciprofloxac in HCl 500 mg tablet 06-05 00:00: 00 06-11 05:59 :00 Yes [id number] 500mg Take 1 tablet by mouth every 12 (twelve) hours for 5 days. [facility] acetaminoph en 500 mg tablet 05-21 00:00: 00 Yes 500mg Take 1 tablet by mouth every 8 (eight) hours as needed. [facility] gentamicin injection 160 mg 05-13 16:00: 00 05-13 15:48 :00 No [id number] 160mg 160 mg, Intramuscu lar, ONCE, 1 dose, On Sun05/13/24 at 1000, PRO, Reason for Anti-Infec tive: Surgical Prophylaxi s, Surgical Prophylaxi s: Genitourin sima, Duration of therapy: within 24 hours of surgery [facility] lidocaine (XYLOCAINE) 2 % jelly URO-JET 10 mL 05-13 15:15: 00 05-13 15:58 :00 No [id number] 10mL 10 mL, Urethral, ONCE, 1 dose, On Sun05/13/24 at 0915, Routine [facility] ciprofloxac in HCl 500 mg tablet 05-08 00:00: 00 06-05 00:00 :00 No [id number] 500mg Take 1 tablet by mouth every 12 (twelve) hours. [facility] ciprofloxac in HCl 500 mg tablet 05-06 00:00: 00 05-08 00:00 :00 No [id number] 500mg Take 1 tablet by mouth every 12 (twelve) hours for 5 days. [facility] mirabegron 50 mg tablet 2023-04 00:00: 00 06-15 05:59 :00 Yes [id number] 50mg Take 1 tablet by mouth in the morning for 60 days. [facility] amLODIPine 5 mg tablet 11-07 00:00: 00 Yes 5mg Take 1 tablet by mouth in the morning. [facility] levothyroxi ne 100 mcg tablet 09-03 08:51: 48 Yes 100ug Take 1 tablet by mouth. [facility] tamsulosin 0.4 mg 24 hr capsule 09-03 08:51: 48 Yes Take by mouth daily. [facility] tamsulosin 0.4 mg 24 hr capsule 06-12 09:02: 28 06-12 00:00 :00 No Take by mouth daily. [facility] alfuzosin 10 mg 24 hr tablet 06-12 00:00: 00 Yes [id number] 01 10mg Take 1 tablet by mouth in the morning. [facility] metFORMIN 500 mg tablet 129 00:00: 00 Yes 500mg Take 1 tablet by mouth in the morning. [facility] alfuzosin 10 mg 24 hr tablet 05-02 00:00: 00 06-12 00:00 :00 No [id number] 01 10mg Take 1 tablet by mouth in the morning. [facility] Cholecalcif pk, Vitamin D3, 50 mcg (2,000 unit) tablet 05-18 00:00: 00 Yes 50ug Take 50 mcg by mouth in the morning. [facility] No known medications 2021-04 15:33: 54 No No known medication s [facility] tamsulosin 0.4 mg 24 hr capsule 2021-04 00:00: 00 05-02 00:00 :00 No .8mg Take by mouth daily. [facility] finasteride 5 mg tablet 11-22 00:00: 00 Yes 5mg 1 tablet. [facility] sildenafiL 100 mg tablet 11-22 00:00: 00 Yes 50mg Take 0.5 tablets by mouth. [facility] atorvastati n 40 mg tablet 08-29 00:00: 00 Yes 20mg Take 0.5 tablets by mouth in the morning. [facility] docusate 100 mg capsule 08-29 00:00: 00 Yes 100mg Take 1 capsule by mouth in the morning and 1 capsule in the evening. [facility] ferrous gluconate 324 mg (38 mg iron) tablet 08-29 00:00: 00 Yes 324mg Take 1 tablet by mouth in the morning. [facility] glipiZIDE 10 mg tablet 08-29 00:00: 00 Yes 5mg Take 0.5 tablets by mouth in the morning. [facility] vitamin B-12 500 mcg tablet 08-22 00:00: 00 Yes 500ug Take 1 tablet by mouth in the morning. [facility] lisinopriL 10 mg tablet 06-30 00:00: 00 Yes 10mg Take 1 tablet by mouth in the morning. [facility] omeprazole 20 mg capsule 06-30 00:00: 00 Yes 20mg 1 capsule. [facility] ferrous sulfate 325 mg (65 mg iron) tablet 2020-04 00:00: 00 05-03 05:59 :00 No [id number] 325mg Take 1 tablet by mouth daily for 30 days. [facility] enoxaparin (LOVENOX) injection 40 mg 2020-04 15:00: 00 Yes 40mg 40 mg, Subcutaneo us, DAILY, First dose on Sun04/01/21 at 0900, Until Discontinu ed, Routine [facility] Sliding Scale Insulin - Lispro (HumaLOG) + Fsbg Testing 2020-04 03:00: 00 Yes Subcutaneo us, TID MEALS+HS, First dose on Sun03/31/21 at 2100, Until Discontinu ed, Routine [facility] NaCl 0.9% (NS) IV infusion 1,000 mL 2020-04 00:45: 00 Yes 1000mL at 125 mL/hr, IV Infusion, CONTINUOUS , Starting on Sun03/31/21 at 1845, Until Discontinu ed, Routine [facility] ondansetron (ZOFRAN (PF)) injection 4 mg 2020-04 00:31: 41 Yes 4mg 4 mg, Slow IV Push, Q6HPRN, Starting on Sun03/31/21 at 1831, Until Discontinu ed, Routine, Nausea and Vomiting (N/V) [facility] acetaminoph en (TYLENOL) tablet 650 mg 2020-04 00:31: 41 Yes 650mg 650 mg, Oral, Q6HPRN, Starting on Sun03/31/21 at 1831, Until Discontinu ed, Routine, Pain (scale 1-3) [facility] HYDROcodone -acetaminop hen (NORCO 5) 5-325 mg tablet 1 tablet 2020-04 00:31: 41 04-03 00:30 :41 No 1{tbl} 1 tablet, Oral, Q6HPRN, Starting on Sun03/31/21 at 1831, Until 04/02/21 at 1830, Routine, Pain (scale 4-6) [facility] Vital Signs Vital Name Observation Time Observation Value Comments S isabell Systolic blood pressure 2024-06-05 19:25:00 147 mm[Hg] [facility] Diastolic blood pressure 2024-06-05 19:25:00 82 mm[Hg] [facility] Heart rate 2024-06-05 19:25:00 74 /min [facility] Body temperature 2024-06-05 19:25:00 36.11 Loan [facility] Respiratory rate 2024-06-05 19:25:00 14 /min [facility] Oxygen saturation in Arterial blood by Pulse oximetry 2024-06-05 19:25:00 95 /min [facility] Body height 2024-05-26 20:03:00 175.3 cm [facility] Body weight 2024-05-26 20:03:00 79.8 kg [facility] BMI 2024-05-26 20:03:00 25.97 kg/m2 [facility] Systolic blood pressure 2024-06-05 14:38:00 155 mm[Hg] [facility] Diastolic blood pressure 2024-06-05 14:38:00 87 mm[Hg] [facility] Heart rate 2024-06-05 14:38:00 85 /min [facility] Body temperature 2024-06-05 14:38:00 36.56 Loan [facility] Respiratory rate 2024-06-05 14:38:00 12 /min [facility] Oxygen saturation in Arterial blood by Pulse oximetry 2024-06-05 14:38:00 97 /min [facility] Body height 2024-05-26 20:03:00 175.3 cm [facility] Body weight 2024-05-26 20:03:00 79.8 kg [facility] BMI 2024-05-26 20:03:00 25.97 kg/m2 [facility] Systolic blood pressure 2024-05-13 14:21:00 133 mm[Hg] [facility] Diastolic blood pressure 2024-05-13 14:21:00 89 mm[Hg] [facility] Heart rate 2024-05-13 14:21:00 87 /min [facility] Respiratory rate 2024-05-13 14:21:00 16 /min [facility] Body height 2024-05-13 14:21:00 175.3 cm [facility] Body weight 2024-05-13 14:21:00 79.788 kg [facility] BMI 2024-05-13 14:21:00 25.98 kg/m2 [facility] Oxygen saturation in Arterial blood by Pulse oximetry 2024-05-13 14:21:00 98 /min [facility] Systolic blood pressure 2024-04-15 15:21:00 136 mm[Hg] [facility] Diastolic blood pressure 2024-04-15 15:21:00 82 mm[Hg] [facility] Heart rate 2024-04-15 15:21:00 94 /min [facility] Body height 2024-04-15 15:21:00 175.3 cm [facility] Body weight 2024-04-15 15:21:00 78.926 kg [facility] BMI 2024-04-15 15:21:00 25.70 kg/m2 [facility] Oxygen saturation in Arterial blood by Pulse oximetry 2024-04-15 15:21:00 97 /min [facility] Systolic blood pressure 2023-09-04 13:48:00 133 mm[Hg] [facility] Diastolic blood pressure 2023-09-04 13:48:00 77 mm[Hg] [facility] Heart rate 2023-09-04 13:48:00 84 /min [facility] Body temperature 2023-09-04 13:48:00 35.56 Loan [facility] Respiratory rate 2023-09-04 13:48:00 18 /min [facility] Body weight 2023-09-04 13:48:00 81.194 kg [facility] BMI 2023-09-04 13:48:00 26.43 kg/m2 [facility] Oxygen saturation in Arterial blood by Pulse oximetry 2023-09-04 13:48:00 95 /min [facility] Systolic blood pressure 2023-06-12 14:33:00 125 mm[Hg] [facility] Diastolic blood pressure 2023-06-12 14:33:00 71 mm[Hg] [facility] Heart rate 2023-06-12 14:33:00 94 /min [facility] Respiratory rate 2023-06-12 14:33:00 18 /min [facility] Body height 2023-06-12 14:33:00 175.3 cm [facility] Body weight 2023-06-12 14:33:00 82.555 kg [facility] BMI 2023-06-12 14:33:00 26.88 kg/m2 [facility] Oxygen saturation in Arterial blood by Pulse oximetry 2023-06-12 14:33:00 96 /min [facility] Systolic blood pressure 2023-05-02 14:45:00 134 mm[Hg] [facility] Diastolic blood pressure 2023-05-02 14:45:00 85 mm[Hg] [facility] Heart rate 2023-05-02 14:45:00 94 /min [facility] Respiratory rate 2023-05-02 14:45:00 18 /min [facility] Body height 2023-05-02 14:45:00 175.3 cm [facility] Body weight 2023-05-02 14:45:00 82.555 kg [facility] BMI 2023-05-02 14:45:00 26.88 kg/m2 [facility] Oxygen saturation in Arterial blood by Pulse oximetry 2023-05-02 14:45:00 97 /min [facility] Systolic blood pressure 2022-07-05 14:55:00 135 mm[Hg] [facility] Diastolic blood pressure 2022-07-05 14:55:00 76 mm[Hg] [facility] Heart rate 2022-07-05 14:55:00 89 /min [facility] Body temperature 2022-07-05 14:55:00 36.83 Loan [facility] Respiratory rate 2022-07-05 14:55:00 18 /min [facility] Body height 2022-07-05 14:55:00 175.3 cm [facility] Body weight 2022-07-05 14:55:00 83.19 kg [facility] BMI 2022-07-05 14:55:00 27.08 kg/m2 [facility] Oxygen saturation in Arterial blood by Pulse oximetry 2022-07-05 14:55:00 97 /min [facility] Systolic blood pressure 2022-03-30 21:32:00 151 mm[Hg] [facility] Diastolic blood pressure 2022-03-30 21:32:00 78 mm[Hg] [facility] Heart rate 2022-03-30 21:32:00 95 /min [facility] Body temperature 2022-03-30 21:32:00 36.28 Loan [facility] Respiratory rate 2022-03-30 21:32:00 18 /min [facility] Body height 2022-03-30 21:32:00 175.3 cm [facility] Body weight 2022-03-30 21:32:00 80.922 kg [facility] BMI 2022-03-30 21:32:00 26.35 kg/m2 [facility] Oxygen saturation in Arterial blood by Pulse oximetry 2022-03-30 21:32:00 98 /min [facility] Systolic blood pressure 2021-04-02 13:40:00 118 mm[Hg] [facility] Diastolic blood pressure 2021-04-02 13:40:00 68 mm[Hg] [facility] Heart rate 2021-04-02 13:40:00 73 /min [facility] Body temperature 2021-04-02 13:40:00 36.72 Loan [facility] Respiratory rate 2021-04-02 13:40:00 17 /min [facility] Oxygen saturation in Arterial blood by Pulse oximetry 2021-04-02 13:40:00 99 /min [facility] Body weight 2021-04-02 09:27:00 73.5 kg [facility] BMI 2021-04-02 09:27:00 23.93 kg/m2 [facility] Body height 2021-03-31 22:39:00 175.3 cm [facility] Procedures Procedure Date / Time Performed Performing Clinician Source POCT GLUCOSE (AUTOMATED) 2024-06-05 18:47:[address] [facility] POCT GLUCOSE (AUTOMATED) 2024-06-05 [facility] [id number] [place] [facility] ELECTROSURG RESCJ PROSTATE BLEED COMPLETE 2024-06-05 17:11:00 [facility] POCT GLUCOSE (AUTOMATED) 2024-06-05 16:02:[address] [facility] POCT GLUCOSE (AUTOMATED) 2024-06-05 16:02[facility] 2024-05-13 14:17:00 Rodney [facility] TAD,POST-VOID RES,US,NON-IMAGING 2024-05-13 00:00:00 Rodney [facility] TAD,POST-VOID RES,US,NON-IMAGING 2024-04-15 15:29:[facility] 2024-04-15 00:00:00 Rodney [facility] POCT URINALYSIS AUTO 2023-09-04 13:57[facility],US,NON-IMAGING 2023-09-04 13:56:00 [facility] 2023-06-12 15:00:00 [facility] T[facility],POST-VOID RES,US,NON-IMAGING 2023-05-02 14:51:00 [facility] 2023-05-02 00:00:00 Phill Cancino [facility] EXTERNAL PROVIDER RECORDS 2023-04-06 06:01:00 Do ctor Unassigned, [place] [facility] POCT URINALYSIS AUTO 2022-07-05 15:04:00 Ángel Stevens [facility] DISCLOSURE AND CONSENT, MEDICAL AND SURGICAL PROCEDURES 2022-07-05 05:01:00 Doctor Unassigned, [place] [facility] ASSIGNMENT OF BENEFITS 2022-06-21 13:52:02 Docto r Unassigned, [place] [facility] PATIENT QUESTIONNAIRE 2022-03-30 06:01:00 Doctor Unassigned, [place] [facility] INSURANCE CORRESPONDENCE 2022-02-07 05:01:00 Doc tor Unassigned, [place] [facility] EXTERNAL PROVIDER RECORDS 2021-04-25 06:01:00 Do ctor Unassigned, [place] [facility] POCT GLUCOSE (AUTOMATED) 2021-04-02 13:43:00 Nora Betancourt [facility] POCT GLUCOSE (AUTOMATED) 2021-04-02 02:24:00 Nora Betancourt [facility] POCT GLUCOSE (AUTOMATED) 2021-04-01 23:18:00 Nora Betancourt [facility] FERRITIN SERUM 2021-04-01 18:27:00 Lorri Betancourtshua [facility] VITAMIN B12, LEVEL 2021-04-01 18:27:00 Lorri Betancourtshua [facility] FOLATE 2021-04-01 18:27:00 Lorri Betancourtshua [facility] IRON PANEL 2021-04-01 18:27:00 Serafin [facility] CLOSTRIDIUM DIFFICILE TOXIN 2021-04-01 18:27:00 Lorri Betancourtshua [facility] POCT GLUCOSE (AUTOMATED) 2021-04-01 17:43:00 Leonides Bernal [facility] POCT GLUCOSE (AUTOMATED) 2021-04-01 13:42:00 Leonides Bernal [facility] BASIC METABOLIC PANEL (NA, K, CL, CO2, GLUCOSE, BUN, CREATININE, CA) 2021-04-01 10:01:00 Leonides Womack [facility] CBC WITH DIFF 2021-04-01 10:00:00 Leonides Womack [facility] POCT GLUCOSE (AUTOMATED) 2021-04-01 03:24:00 Leonides Bernal [facility] CBC WITH DIFF 2021-04-01 02:54:00 Leonides Womack [facility] BASIC METABOLIC PANEL (NA, K, CL, CO2, GLUCOSE, BUN, CREATININE, CA) 2021-04-01 02:53:00 Leonides Womack [facility] Encounters Start Date/Time End Date/Time Encounter Type Admission Type Attending [facility] Facility Care Department Encounter ID Source 2024-06-06 00:00:00 2024-06-06 20:27:57 Telephone Emma Stevens [facility] 1.2.840.114 350.1.13.10 4.2.7.2.686 [id number] [facility] 2024-06-05 08:19:00 2024-06-05 14:15:00 Outpatient R EMMA STEVENS [facility] [id number] [facility] 2024-06-05 08:19:00 2024-06-05 14:15:00 Hospital Encounter Emma Stevens [facility] 1.2.840.114 350.1.13.10 4.2.7.2.686 [id number] [facility] 2024-06-05 00:00:00 2024-06-05 13:23:51 Telephone Emma Stevens [facility] 1.2.840.114 350.1.13.10 4.2.7.2.686 [id number] [facility] 2024-06-05 10:47:00 2024-06-05 12:36:00 Surgery Emma Stevens [facility] 1.2.840.114 350.1.13.10 4.2.7.2.686 [id number] [facility] 2024-06-04 08:45:00 2024-06-04 09:00:00 Jack Strip Assembler Visit 2, [facility] Emma Stevens 2, [facility] 1.2.840.114 350.1.13.10 4.2.7.2.686 [id number] [facility] 2024-06-04 08:45:00 2024-06-04 08:45:00 Outpatient R RODNEY [facility] [id number] [facility] 2024-05-26 11:30:00 2024-05-26 11:45:00 Jack Strip Assembler Visit 2, [facility] Emma Stevens 2, [facility] 1.2.840.114 350.1.13.10 4.2.7.2.686 [id number] [facility] 2024-05-26 11:30:00 2024-05-26 11:30:00 [facility] [id number] 2024-05-26 00:00:00 2024-05-26 11:06:42 Telephone Rodney [facility] BU[facility] 1.2.840.114 350.1.13.10 4.2.7.2.686 [id number] [facility] 2024-05-19 14:03:52 2024-05-19 23:59:00 [facility] [id number] [facility] 2024-05-19 14:03:52 2024-05-19 23:59:00 [facility] 1.2.840.114 350.1.13.10 4.2.7.2.686 [id number] [facility] 2024-05-14 00:00:00 2024-05-14 10:10:06 [facility] 1.2.840.114 350.1.13.10 4.2.7.2.686 [id number] [facility] 2024-05-13 00:00:00 2024-05-13 10:07:[address] [facility] 1.2.840.114 350.1.13.10 4.2.7.2.686 [id number] [facility] 2024-05-13 08:30:00 2024-05-13 09:58:06 [facility] [id number] [facility] 2024-05-13 08:30:00 2024-05-13 09:58:06 Office Visit Rodney Emma [facility]ARE 1.2.840.114 350.1.13.10 4.2.7.2.686 [id number] [facility] 2024-05-12 11:00:00 2024-05-12 11:15:00 Jack Strip Assembler Visit 2, [facility] Emma Stevens 2, [facility] 1.2.840.114 350.1.13.10 4.2.7.2.686 [id number] [facility] 2024-05-12 11:00:00 2024-05-12 10:11:54 [facility] [id number] [facility] 2024-05-06 00:00:00 2024-05-06 17:02:31 Telephone Emma Stevens [facility] 1.2.840.114 350.1.13.10 4.2.7.2.686 [id number] [facility] 2024-05-02 11:45:00 2024-05-02 12:00:00 Jack Strip Assembler Visit 2, [facility] Emma Stevens 2, [facility] PROFESSIO NAL BUILDING 1.2.840.114 350.1.13.10 4.2.7.2.686 [id number] [facility] 2024-05-02 11:45:00 2024-05-02 11:45:00 Outpatient R NALLELYKAYLANBeau [facility] [id number] [facility] 2024-04-25 00:00:00 2024-04-25 08:38:50 Telephone Nallelymeli [facility] PRIMARY [facility] SPECIALTY CARE 1.2.840.114 350.1.13.10 4.2.7.2.686 [id number] [facility] 2024-04-15 11:15:00 2024-04-15 11:30:00 Jack Strip Assembler Visit 2, [facility] Emma Stevens 2, [facility] 1.2.840.114 350.1.13.10 4.2.7.2.686 [id number] [facility] 2024-04-15 11:15:00 2024-04-15 11:15:00 [facility] [id number] [facility] 2024-04-15 09:45:00 2024-04-15 10:00:00 Office Visit Nallelykaylanbeau [facility] PRIMARY [facility] SPECIALTY CARE 1.2.840.114 350.1.13.10 4.2.7.2.686 [id number] [facility] 2024-03-04 10:15:00 2024-03-04 10:15:00 Outpatient R EMMA STEVENS [facility] [id number] [facility] 2023-12-11 00:00:00 2023-12-12 13:51:49 Telephone Emma Stevens [facility] [facility] 1.2.840.114 350.1.13.10 4.2.7.2.686 [id number] [facility] 2023-12-10 00:00:00 2023-12-11 10:09:50 [facility] 1.2.840.114 350.1.13.10 4.2.7.2.686 [id number] [facility] 2023-09-04 10:00:00 2023-09-04 10:00:00 Office Visit Barak [facility] 1.2.840.114 350.1.13.10 4.2.7.2.686 [id number] [facility] 2023-09-04 10:00:00 2023-09-04 09:07:09 [facility] [id number] [facility] 2023-06-12 09:30:00 2023-06-12 09:30:00 [facility] 1.2.840.114 350.1.13.10 4.2.7.2.686 [id number] [facility] 2023-06-12 09:30:00 2023-06-12 09:05:18 [id number] 2023-05-10 00:00:00 2023-05-10 00:00:00 [facility] 1.2.840.114 350.1.13.10 4.2.7.2.686 [id number] [facility] 2023-05-02 09:45:00 2023-05-02 09:45:00 [facility] 1.20.114 350.1.13.10 4.2.7.2.686 [id number] [facility] 2023-05-02 09:45:00 2023-05-02 09:20:19 Outpatient R BARAK [facility] [id number] [facility] 2023-04-06 00:00:00 2023-04-06 00:00:00 Orders Only Doctor Unassigned, [facility] 1.2840.114 350.1.13.10 4.2.7.2.686 [id number] [id number] [facility] 2022-07-05 10:00:00 2022-07-05 11:39:53 [facility] [id number] [facility] 2022-07-05 10:00:00 2022-07-05 11:39:53 Office Visit Emma Stevens Rm2, Adc Surg [facility] 1.20.114 350.1.13.10 4.2.7.2.686 [id number] [facility] 2022-07-05 00:00:00 2022-07-05 00:00:00 Orders Only Doctor Unassigned, [facility] 1.20.114 350.1.13.10 4.2.7.2.686 [id number] [facility] 2022-07-04 00:00:00 2022-07-04 00:00:00 Telephone Emma Stevens 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 Visit 2, Adc Lab [facility] BUILDING 1.2840.114 350.1.13.10 4.2.7.2.686 [id number] [facility] 2022-06-21 00:00:00 2022-06-21 00:00:00 Orders Only Doctor Unassigned, [facility] 1.20.114 350.1.13.10 4.2.7.2.686 [id number] [facility] 2022-04-03 00:00:00 2022-04-03 00:00:00 Case Management [facility] BUILDING 1.2840.114 350.1.13.10 4.2.7.2.686 [id number] [facility] 2022-03-30 16:30:00 2022-03-30 16:30:00 Office Visit [facility] BUILDING 1.284.114 350.1.13.10 4.2.7.2.686 [id number] [facility] 2022-03-30 16:30:00 2022-03-30 15:48:26 Outpatient R [facility] [id number] [facility] 2022-03-30 00:00:00 2022-03-30 00:00:00 Orders Only Doctor Unassigned, [facility] 1.2.114 350.1.13.10 4.2.7.2.686 [id number] [facility] 2022-02-07 00:00:00 2022-02-07 00:00:00 Orders Only Doctor Unassigned, [facility] 1.2.840.114 350.1.13.10 4.2.7.2.686 [id number] [facility] 2021-04-25 00:00:00 2021-04-25 00:00:00 Orders Only Doctor Unassigned, [facility] 1.2.840.114 350.1.13.10 4.2.7.2.686 [id number] [id number] [facility] 2021-04-04 00:00:00 2021-04-04 00:00:00 Transition of Care Musa Ballard 1.2.840.114 350.1.13.10 4.2.7.2.686 [id number] [facility] 2021-03-31 16:22:00 2021-04-02 10:37:00 Inpatient U [facility]O [facility] [id number] [facility] 2021-03-31 16:22:00 2021-04-02 10:37:00 Hospital Encounter Leonides Womack Joshua [facility] 1.2.840.114 350.1.13.10 4.2.7.2.686 [id number] [facility] Results Test Description Test Time Test Comments Results Result Co mments [facility]AUT[facility]2024-06-05 18:47:57* Test Item Value Reference Range Interpretation Comme nts POCT GLU (test code = 2918385339) 125 mg/dL 70-110 H Lab Interpretation (test cod e = 16045-1) [facility] ([facility]2024-06-05 16:03:20* Test Item Value Reference Range Interpretation Comme nts POCT GLU (test code = 2167904650) 159 mg/dL 70-110 H Lab Interpretation (test cod e = 50995-5) [facility]SE (AUTOMATED)2024-06-05 16:03:20* Test Item Value Reference Range Interpretation Comme nts POCT GLU (test code = 4628758189) 159 mg/dL 70-110 H Lab Interpretation (test cod e = 92216-1) [facility] Urinalysis, [id number] 14:23:00 * Test Item Value Reference Range Interpretation Comme nts POCT U SP GRAV (test code = 3255) 1.025 mg/dl 1.005-1.025 POCT PH U (test code = 3254) 6.5 mg/dl 5-8 POCT U LEUK EST (test code = 3263) neg Negative - Negative POCT U NIT (test code = 3262) neg Negative - Negati ve POCT U PROT (test code = 3259) trace Negative - Negative POCT U GLU (test [...] U APPEAR (test code = 3267) [facility],[id number] 00:00:00* Test Item Value Reference Range Interpretation Comme nts PVR (URINE VOLUME) (test code = 5193) 0 ml 0-100 [facility] Urinalysis, [id number] 15:31:00 * Test Item Value Reference Range Interpretation Comme nts POCT U SP GRAV (test code = 3255) 1.020 mg/dl 1.005-1.025 POCT PH U (test code = 3254) 7.0 mg/dl 5-8 POCT U LEUK EST (test code = 3263) Trace Negative - Negative A POCT U NIT (test code = 3262) negative Negative - Negati ve POCT U PROT (test code = 3259) 30 Negative - Negative A POCT U GLU (test code = 3256) negative Negative - Negati ve POCT U KETONE (test code = 3258) trace Negative - Negative A POCT U UROBILI (test code = 3260) 0.2 mg/dl 0.2-1 POCT U BILI (test code = 3261) negative Negative - Negative POCT U BLD (test code = 3257) trace Negative - Negati ve A POCT U COLOR (test code = 3266) yellow POCT U APPEAR (test code = 3267) clear Lab Interpretation (test cod e = 77021-8) [facility],US,[id number] 15:29:00* Test Item Value Reference Range Interpretation Comme nts PVR (URINE VOLUME) (test code = 5193) 5 ml 0-100 [facility] Ur[facility]ysis, [id number] 13:57:00 * Test Item Value Reference Range [...] clear Lab Interpretation (test cod e = 62832-8) [facility] [id number] 13:57:00 * Test Item Value Reference Range [...] clear Lab Interpretation (test cod e = 46471-0) Abnormal [facility],POST-VOID RES,US,[id number] 13:56:00* Test Item Value Reference Range Interpretation Comme nts PVR (URINE VOLUME) (test code = 5193) 54 ml 0-100 [facility],POST-VOID RES,,[id number] 13:56:00* Test Item Value Reference Range Interpretation Comme nts PVR (URINE VOLUME) (test code = 5193) 54 ml 0-100 [facility], [id number] 15:01:00 * Test Item Value Reference Range [...] U APPEAR (test code = 3267) [facility] Urinalysis, [id number] 15:01:00 * Test Item Value Reference Range [...] U APPEAR (test code = 3267) Clear [facility] Urinalysis, [id number] 15:01:00 * Test Item Value Reference Range [...] U APPEAR (test code = 3267) [facility], [id number] 14:51:00 * Test Item Value Reference Range [...] U APPEAR (test code = 3267) [facility],US,[id number] 14:51:00* Test Item Value Reference Range Interpretation Comme nts PVR (URINE VOLUME) (test code = 5193) 35 ml 0-100 [facility], [id number] 14:51:00 * Test Item Value Reference Range [...] U APPEAR (test code = 3267) clear [facility],US,[id number] 14:51:00* Test Item Value Reference Range Interpretation Comme nts PVR (URINE VOLUME) (test code = 5193) 35 ml 0-100 [facility], [id number] 15:04:00 * Test Item Value Reference Range [...] clear Lab Interpretation (test cod e = 70372-1) [facility], [id number] 15:04:00 * Test Item Value Reference Range [...] clear Lab Interpretation (test cod e = 43418-7) [facility] (AUTOMATED[facility]2021-04-02 15:19:24* Test Item Value Reference Range Interpretation Comme nts POCT GLU (test code = 0710920251) 117 mg/dL 70-110 H Lab Interpretation (test cod e = 70481-8) [facility] GLU[facility]SE (AUTOMATED)2021-04-02 02:33:23* Test Item Value Reference Range Interpretation Comme nts POCT GLU (test code = 6391673585) 122 mg/dL 70-110 H Lab Interpretation (test cod e = 47375-6) [facility]21-[facility] 23:56:45* Test Item Value Reference Range Interpretation Comme nts FOLATE SER (test code = 6107041355) 10.5 ng/mL 3.0-20.0 Lab Interpretation (test cod e = 55869-4) [facility] B12, [id number] 23:46:04* Test Item Value Reference Range Interpretation Comme nts VIT B12 (test code = 8784477823) 726 pg/mL 240-930 SHILPI (test code = SHILPI) Biotin has been reported to cause a positive bias, interpret results relative to patient's use of biotin. Lab Interpretation (test code = 86458-4) [facility] (AUTOMATED)2021-04-01 23:24:57* Test Item Value Reference Range Interpretation Comme nts POCT GLU (test code = 6220432014) 147 mg/dL 70-110 H Lab Interpretation (test cod e = 81435-3) Abnormal [facility] [id number] 20:10:51* Test Item Value Reference Range Interpretation Comme nts FERRITIN (test code = 8123596573) 11.6 ng/mL 18.0-464.0 L SHILPI (test code = SHILPI) Biotin has been reported to cause a negative bias, interpret results relative to patient's use of biotin. Lab Interpretation (test code = 71474-3) Abnormal [facility] HospitalIRO [id number] 19:44:22* Test Item Value Reference Range Interpretation Comme nts IRON (test code = 4081962950) 17 ug/dL 50-160 L TIBC (test code = 9952862854) 414 ug/dL 250-410 H % FE SAT (test code = 5560635868) 4 % 20-50 L Lab Interpretation (test cod e = 49443-4) [facility] GLU[facility]SE (AUTOMATED)2021-04-01 17:45:12* Test Item Value Reference Range Interpretation Comme nts POCT GLU (test code = 3292089292) 115 mg/dL 70-110 H Lab Interpretation (test cod e = 63034-8) [facility] GLUCOSE (AUTOMATED)2021-04-01 14:31:40* Test Item Value Reference Range Interpretation Comme nts POCT GLU (test code = 5136330242) 83 mg/dL 70-110 Lab Interpretation (test cod e = 69489-9) Normal [facility] Metabolic Panel (NA, K, CL, CO2, GLUCOSE, BUN, CREATININE, CA)2021-04-01 10:57:18* Test Item Value Reference Range Interpretation Comme nts NA (test code = 1615923341) 134 mmol/L 135-145 L K (test code = 6219411780) 3.6 mmol/L 3.5-5.0 CL (test code = 5366104661) 110 mmol/L 98-108 H CO2 TOTAL (test code = 9769775802) 12 mmol/L 23-31 L AGAP (test code = 9869681749) 2-16 BUN (test code = 6899274068) 34 mg/dL 7-23 H GLUCOSE (test code = 3883217817) 67 mg/dL 70-110 L CREATININE (test code = 1877127781) 1.41 mg/dL 0.60-1.25 H CALCIUM (test code = 6087353844) 7.5 mg/dL 8.6-10.6 L eGFR (test code = 4954874866) mL/min/1.73m2 SHILPI (test code = SHILPI) Association [...] imaging tests). Lab Interpretation (test code = 93991-7) [facility] [id number] 10:47:18* Test Item Value Reference Range Interpretation Comme nts WBC (test code = 6690-2) See_Comment [Automated Rollerscoot] The system which generated this result transmitted reference range: 4.20 - 10.70 10*3/?L. The reference range was not used to interpret this result as normal/abnormal. RBC (test code = 789-8) See_Comment L [Automated Rollerscoot] The system which generated this result transmitted [...] g/dL 31.2-35.0 L RDW-SD (test code = 56755-7) 44.8 fL 38.5-51.6 RDW-CV (test code = 788-0) 17.0 % 12.1-15.4 H PLT (test code = 777-3) See_Comment [Automated messa ge] The system which generated this result transmitted reference range: 150 - 328 10*3/?L. The reference range was not used to interpret this result as normal/abnormal. MPV (test code = 81537-5) 10.9 fL 9.8-13.0 NRBC/100 WBC (test code = 8530884655) See_Comment [Automated Ogone ssage] The system which generated this result transmitted reference range: 0.0 - 10.0 /100 WBCs. The reference range was not used to interpret this result as normal/abnormal. NRBC x10^3 (test code = 7650276221) <0.01 See_Comment [Automated Catalyzea ge] The system which generated this result transmitted reference range: 10*3/?L. The reference range was not used to interpret this result as normal/abnormal. GRAN MAT (NEUT) % (test code = 770-8) 51.0 % IMM GRAN % (test code = 9506067145) 0.20 % LYMPH % (test code = 736-9) 33.6 % MONO % (test code = 5905-5) 13.8 % EOS % (test code = 713-8) 0.9 % BASO % (test code = 706-2) 0.5 % GRAN MAT x10^3(ANC) (test code = 8107148328) 2.26 10*3/uL 1.99-6.95 IMM GRAN x10^3 (test code = 2588500975) <0.03 0.00-0.06 LYMPH x10^3 (test code = 731-0) 1.49 10*3/uL 1.09-3.23 MONO x10^3 (test code = 742-7) 0.61 10*3/uL 0.36-1.02 EOS x10^3 (test code = 711-2) 0.04 10*3/uL 0.06-0.53 L BASO x10^3 (test code = 704-7) <0.03 0.01-0.09 Lab Interpretation (test code = 34611-9) [facility]2021-04-01 03:42:00* Test Item Value Reference Range Interpretation Comme [facility] POCT GLU (test code = 8928339225) 107 mg/dL 70-110 Lab Interpretation (test cod e = 03145-2) Normal [facility] METABOLIC PANEL (NA, K, CL, CO2, GLUCOSE, BUN, CREATININE, CA)2021-04-01 03:23:24* Test Item Value Reference Range Interpretation Comme [facility] NA (test code = 6274080465) 135 mmol/L 135-145 K (test code = 1815438241) 3.7 mmol/L 3.5-5.0 CL (test code = 5442126938) 107 mmol/L 98-108 CO2 TOTAL (test code = 3196745328) 14 mmol/L 23-31 L AGAP (test code = 0054664660) 2-16 BUN (test code = 1272958150) 42 mg/dL 7-23 H GLUCOSE (test code = 3723817500) 117 mg/dL 70-110 H CREATININE (test code = 5953274397) 1.65 mg/dL 0.60-1.25 H CALCIUM (test code = 9970257593) 7.7 mg/dL 8.6-10.6 L eGFR (test code = 4415723857) mL/min/1.73m2 SHILPI (test code = SHILPI) Association [...] imaging tests). Lab Interpretation (test code = 45203-6) [facility] WITH [id number] 03:04:00* Test Item Value Reference Range Interpretation Comme nts WBC (test code = 6690-2) See_Comment [Automated Rollerscoot] The system which generated this result transmitted reference range: 4.20 - 10.70 10*3/?L. The reference range was not used to interpret this result as normal/abnormal. RBC (test code = 789-8) See_Comment L [Automated Rollerscoot] The system which generated this result transmitted [...] 31.2 g/dL 31.2-35.0 RDW-SD (test code = 84094-4) 43.8 fL 38.5-51.6 RDW-CV (test code = 788-0) 17.0 % 12.1-15.4 H PLT (test code = 777-3) See_Comment [Automated messa ge] The system which generated this result transmitted reference range: 150 - 328 10*3/?L. The reference range was not used to interpret this result as normal/abnormal. MPV (test code = 68151-3) 9.2 fL 9.8-13.0 L NRBC/100 WBC (test code = 3790318453) See_Comment [Automated Ogone ssage] The system which generated this result transmitted reference range: 0.0 - 10.0 /100 WBCs. The reference range was not used to interpret this result as normal/abnormal. NRBC x10^3 (test code = 8035027396) <0.01 See_Comment [Automated Catalyzea ge] The system which generated this result transmitted reference range: 10*3/?L. The reference range was not used to interpret this result as normal/abnormal. GRAN MAT (NEUT) % (test code = 770-8) 69.7 % IMM GRAN % (test code = 7095640018) 0.20 % LYMPH % (test code = 736-9) 17.1 % MONO % (test code = 5905-5) 12.6 % EOS % (test code = 713-8) 0.2 % BASO % (test code = 706-2) 0.2 % GRAN MAT x10^3(ANC) (test code = 0176722184) 3.21 10*3/uL 1.99-6.95 IMM GRAN x10^3 (test code = 8780456788) <0.03 0.00-0.06 LYMPH x10^3 (test code = 731-0) 0.79 10*3/uL 1.09-3.23 L MONO x10^3 (test code = 742-7) 0.58 10*3/uL 0.36-1.02 EOS x10^3 (test code = 711-2) <0.03 0.06-0.53 L BASO x10^3 (test code = 704-7) <0.03 0.01-0.09 Lab Interpretation (test code = 81543-0) Abnormal [facility] History and Physical Notes Date/Time Note Provider Source 2024-06-05 09:20:25 UROLOGY HISTORY AND PHYSICAL NOTE Date of Service: 06/05/2024 Chief Complaint: LUTS History of Present Illness: Abdoul Hudson is a 79 year old male with PMH as below , who presents with worsening LUTS on medical therapy, recent UTI has been on oral abx , interested in IPP for 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 amLODIPine 5 mg tablet Take 1 tablet by mouth in the morning. aspirin 81 mg chewable tablet Take 1 tablet by mouth weekly. 05/31/2024 mirabegron 50 mg tablet Take 1 tablet by mouth in the morning for 60 days. 30 tablet 1 levothyroxine 100 mcg tablet Take 1 tablet by mouth. metFORMIN 500 mg tablet Take 1 tablet by mouth in the morning. tamsulosin 0.4 mg 24 hr capsule Take by mouth daily. atorvastatin 40 mg tablet Take 0.5 tablets by mouth in the morning. Cholecalciferol, Vitamin D3, 50 mcg (2,000 unit) tablet Take 50 mcg by mouth in the morning. docusate 100 mg capsule Take 1 capsule by mouth in the morning and 1 capsule in the evening. ferrous gluconate 324 mg (38 mg iron) tablet Take 1 tablet by mouth in the morning. finasteride 5 mg tablet 1 tablet. glipiZIDE 10 mg tablet Take 0.5 tablets by mouth in the morning. lisinopriL 10 mg tablet Take 1 tablet by mouth in the morning. omeprazole 20 mg capsule 1 capsule. vitamin B-12 500 mcg tablet Take 1 tablet by mouth in the morning. ciprofloxacin HCl 500 mg tablet Take 1 tablet by mouth every 12 (twelve) hours. 10 tablet 0 not taking alfuzosin 10 mg 24 hr tablet Take 1 tablet by mouth in the morning. 30 tablet 3 not taking sildenafiL 100 mg tablet Take 0.5 tablets by mouth. not taking Histories: No past medical history on file. No past surgical history on file. No family history on file. Social History Socioeconomic History Marital status: Single Spouse name: Not on file Number of children: 2 Years of education: Not on file Highest education level: Not on file Occupational History Occupation: retired Tobacco Use Smoking status: Former Smokeless tobacco: Never Tobacco comments: pt quit smoking 48 years ago Substance and Sexual Activity Alcohol use: Not on file Drug use: Not on file Sexual activity: Not on file Other Topics Concern Not on file Social History Narrative Not on file Social Determinants of Health Financial Resource Strain: Not on file Food Insecurity: Not on file Transportation Needs: Not on file Physical Activity: Not on file Stress: Not on file Social Connections: Not on file Housing Stability: Not on file Allergies: Allergies Allergen Reactions Penicillin Hives Shrimp Hives Review of Systems: Constitutional: negative Eyes: negative Ears, nose, mouth, throat: negative Cardiovascular: negative Respiratory: negative Gastrointestinal: negative Genitourinary: (+) per HPI Musculoskeletal: negative Integumentary: negative Neurological: negative Psychiatric: negative Endocrine: negative Hematologic/Lymphatic: negative Allergic/Immunologic: negative, allergies listed above Physical Examination: Blood pressure (!) 155/87, pulse 85, temperature 36.6 ?C (97.8 ?F), temperature source Temporal Artery, resp. rate 12, height 1.753 m (5' 9.02"), weight 79.8 kg (175 lb 14.8 oz), SpO2 97%. Constitutional:no acute distress Eyes: normal external eye, conjunctiva and sclera normal Ears, nose, mouth, throat: normocephalic, moist mucous membranes Cardiovascular: regular rate and rhythm Respiratory: respirations unlabored on room air Musculoskeletal: no clubbing, cyanosis or edema Skin: no rashes Neurologic: no focal deficits Psychiatric: appropriate mood and affect Hematologic: no bruising Laboratory: Hemogram Recent Labs 06/04/24 0844 WBC 6.45 HGB 13.0 HCT 38.2* PLT 136* Chemistry Recent Labs 04/15/24 1058 06/04/24 0844 NA 140 138 K 4.2 4.3 CL 104 106 TCO2 26 27 AGAP 10 5 BUN 17 17 GLU 141* 136* CREAT 1.00 1.09 CA 9.6 9.5 EGFR 77.5 69.5 Urinalysis There are no current results on file for these tests and/or test for the past 3 mos. Urine Culture Recent Labs 05/02/24 1104 05/12/24 0949 05/26/24 1150 CUR 10,000 CFU/mL Morganella morganii* No aerobic growth (< 1000 CFU/mL) < 10,000 CFU/mL aerobic organisms - suggests endogenous microbial contamination Liver Function Tests Recent Labs 04/15/24 1058 06/04/24 0844 AST 32 25 ALT 25 20 ALKPHOS 86 102 BILIT 1.3* 0.7 Coagulation Profile There are no current results on file for these tests and/or test for the past 3 mos. Arterial Blood Gas There are no current results on file for these tests and/or test for the past 3 mos. Radiology: I independently visualized the images noted below. CT Pelvis wo contrast Result Date: 05/21/2024 EXAM: CT PELVIS WO CONTRAST HISTORY: worsening LUTS, need to assess prostate size prior to VENTURA procedure COMPARISON: None. FINDINGS: Moderate atherosclerosis in the lower visualized portion of the aorta and iliac arteries. Visualized intestines showed no acute findings. Very small fat-containing umbilical hernia noted. Exaggerated lumbosacral lordosis, minimal spondylolisthesis of L5 over S1 with bilateral L5 spondylolysis noted. No aggressive bone lesions or any acute bony abnormalities. Urinary bladder and prostate gland: Urinary bladder is poorly distended. Dense central zone prostate calcifications noted. Prostate gland measures approximately 3.5 x 2.6 x 2.9 cm (approximately 26 cc). Prostate gland is approximately 26 g with dense central zone prostate calcifications noted. Procedure: None Assessment and Plan: 79 year old male with worsening LUTS on medical therapy, recent UTI has been on oral abx PSA (ng/mL) Date Value 04/15/2024 0.27 . Principal Problem: Benign prostatic hyperplasia with nocturia CT prostate size :Prostate gland is approximately 26 g with dense central zone prostate calcifications noted. I counseled patient about options for treating BPH and natural history if not treated ( bladder atony, voiding dysfunction, renal failure, stones recurrent infection, and need for chcf catheter) CIC, surgical options: TURP, ThuLVP to alleviate the obstruction and attempt improve LUTS and avoid risk of complications from chcf VENTURA. Possible adverse events recognized with TURP and ThuLVP include and not limited to ( pain, bleeding, infection, injury to surrounding structures, erectile dysfunction, urinary incontinence, retrograde ejaculation, stricture formation, inability to void/retention, prostatic regrowth, need for additional procedures). Trial of medical therapy Tamsulosin 0.4 mg at bedtime. Discussed usage and side-effects including dizziness, orthostatic hypotension ( drop in blood pressure) , falls, fatigue, nasal congestion and retrograde/ anejaculation ejaculation Prostatic Urethral Lift ( UroLift) Robotic Laparoscopic Assisted Simple Prostatectomy for large glands ThuLVP has comparable outcomes when compared with the gold standard TURP, in addition to less risk of bleeding, catheterization time and need for hospitalization. HoLEP : risk of complications mainly damage to bladder ( perforation, , need to reconstruct). pain, bleeding, infection, injury to surrounding structures, need for prolonged catheter , failure to remove all prostate, need for additional procedures Patient may experience urgency, transient DOROTHEA/ UUI or ROHAN, if persistent may need further medical or surgical therapy ( rare) Patient confirmed consent for TURP Plan: OR today for TURP Emma Stevens MD [facility] Procedure Notes Date/Time Note Provider Source 2024-06-05 09:25:10 Operative Report Preoperative Diagnosis: LUTS refractory to medical therapy, CT prostate size 26 cc Postoperative Diagnosis: LUTS , obstructive enlarged prostate Procedure Performed: Cystoscopy, transurethral resection of prostate CPT 01850 Attending Physician: Emma Stevens Anesthesia: General Estimated Blood Loss: 50 mL Drains: 1. 22Fr three way catheter Complications: None Wound Class: Clean contaminated Specimens: 1. Prostate chips Operative Findings: Normal urethra and bladder mucosa. No lesions or masses were seen. The prostate appeared enlarged and obstructive lateral lobes. Clear efflux drained from both ureteral orifices. The bladder had increased capacity, trabeculation. Adenoma resected down to capsule with good hemostasis, preserved external sphincter and bilateral Uo's by the end of the procedure. The patient tolerated the procedure well. There were no complications in this procedure. Indications For Procedure: I discussed options for management at length with the patient . Given his wish to consider surgery, I described each of the various options including Greenlight photovaporization, TURP, and newer options such as Rezum and Urolift. I also noted that due to the size of his prostate, he did not require a robotic simple prostatectomy. The risks, benefits, and alternatives to TURP were explained in detail including bleeding, infection, need for further operation, damage to adjacent structures, and retrograde ejaculation. He expressed understanding and agreed to proceed with TURP. Procedure In Detail: The patient was brought to the operating theatre and placed supine upon the operating room table. General anesthesia was administered and he was moved to a lithotomy position. The external genitalia were prepped and draped in the usual sterile fashion. Perioperative antibiotics were administered. Prior to beginning our procedure, a preoperative timeout was performed to verify the patient identity, procedure to be performed, and laterality. Once complete we began the case. We first began by entering the bladder using a 26 Fr Olympus resectoscope with the visual obturator. Upon reaching the prostate, we noted bilobar obstructive prostate . The trigonal anatomy was carefully inspected to assess the site of the ureters relative to the bladder neck. We then slowly withdrew the scope to the level of the verumontanum and sphincter to complete the survey of the anatomy.The visual obturator was then removed and a bipolar loop deployed. Using bipolar electrocautery, the prostatic lobes were taken down in a careful and deliberate fashion. We began with the median lobe, then turned to the left and then right lateral lobes. Resection was taken down to the level of the prostatic capsule. Once these were complete, we turned to the anterior tissues and resected this area as well. Throughout this process, special care was used to ensure that the ureteral orifices and verumontanum were well spared and avoided. At this point, careful hemostasis was obtained at all sites. At the conclusion of the case, there was no evidence of ongoing bleeding. An Ellick evacuator was used to ensure all prostate chips had been removed from the bladder. The view from the verumontanum into the bladder was seen to be wide open with no residual obstruction. Following this, a 22Fr 3 way catheter was inserted into the bladder and connected to continuous bladder irrigation. The outflow was noted to be crystal clear. The patient was awakened and extubated in the OR. He was transported to the PACU in stable condition. He will be monitored for a short time prior to anticipated discharge to home. Plan For Postoperative Care: Home later today Emma Stevens MD [facility] Notes Date/Time Note Provider Source 2024-06-06 20:22:47 Spoke to patient over phone. Mr Hudson underwent a TURP yesterday which was uncomplicated. Reports that he has bilaterally worsening lower extremity edema that has rapidly worsened throughout day today. He denies chest pain, SOB, and lower extremity pain. No abdominal pain, catheter draining. This has not happened before this incident. Due to rapid onset lower extremity edema, recommended that he is evaluated further in the ED for cardiac or pulmonary etiologies, including heart failure. He said that he was unable to find a ride to ED, recommended calling 911 as this highly concerning for a cardiac emergency. Soham Vang MD Urology Resident [facility] 2024-06-06 20:08:50 Abdoul Hudson is a 79 year old male Patient called regarding experiencing swelling in feet that began today. Was wanting to go over with a provider regarding the symptoms and to be advise. Patient had Procedure: TRANSURETHRAL PROSTATE RESECTION 06/05/24 Called application performance engineer Urology provider Dr. Vang: 20:03 Connected: 20:05 [facility] Bang Faustin [facility] 2024-06-05 13:22:20 IPP 07/11/2024 [facility] 2024-06-05 12:12:52 CALLED AND UPDATED PT'S DAUGHTER, REENA, AT 1213 - BE ANGELA. EL Kraft RN [facility] 2024-06-05 09:33:40 Addended by: EMMA STEVENS on: 06/05/2024 09:33 AM Modules accepted: Orders [facility] 2024-06-04 09:45:29 Spoke with patient and reinforced medication instructions. Verbalized understanding and teach-back performed. [facility] 2024-06-04 08:45:00 Images from the original note were not included. Only blood per pt request Venipuncture collection performed by clean technique on the left anticubitus. Total of 1 attempts were made. Slight pressure and a bandage/dressing were applied to the site(s). The patient experienced no complications. The following specimens were processed according to instructions and sent to [facility] laboratories per lab order on 06/04/2024 : LT BLUE SST 1 RED LAV 1 PPT DK GREEN (LiHep) DK GREEN (SodH) KAHN DK BLUE (K2) DK BLUE (S) ACD Blood Culture NIPT/NTD [facility] 2024-06-03 10:33:01 Images from the original note were not included. Your procedure is at [facility] on 06/05/24. The [address] is [address] [place] [address], [id number]. [facility] nursing staff will call you the workday prior to surgery/procedure between 12-3 pm with your arrival time. When you arrive, please come inside and sign in at the desk. Please note: You may not travel home alone and that includes in a taxi or by bus. We must speak to your Responsible Adult (who will be picking you up) the morning of your procedure, before the start of your procedure. This person must be an adult over the age of 18 years of age. Do not eat any solid food after midnight the night before surgery. May have 8-16 oz of water/clear liquids each hour after midnight, as desired, until two hours prior to arrival to promote hydration. You may take your medications with a sip of water as directed by physician. Anticoagulants will be per physician guidance. Takes one ASA per week, will continue. Other medication Note(s)/Instructions:Instruc acosta to hold lisinopril day before and morning of surgery and hold metformin and glipizide morning of procedure. Advised to take levothyroxine, amlodipine, and omeprazole morning of surgery and remainder of scheduled a.m. meds after surgery. Pending screening, we may test for COVID. If a patient tests positive, their cases are cancelled and/or rescheduled. COVID SCREENING NOTE: Denies COVID symptoms, no testing required. Additional requests, questions, concerns:Will go in to URO office tomorrow and complete pre-op labs. CB number and availability provided. Patient verbalized understanding of pre-op instructions and voiced no further questions at this time. [facility] 2024-05-26 11:30:00 Images from the original note were not included. Patient has been identified by and name and was provided with cup, antiseptic towelette, and clean catch instructions. 1 urine specimen(s) sent. Unpreserved Urine Culture 1 Aptima tube Other urine UX only [facility] 2024-05-26 11:04:49 Called patient, asked that he report to the lab today 05/26/24 to give Ucx prior to procedure scheduled 06/05/24. Patient voiced understanding. Order for Ucx placed. [facility] 2024-05-26 11:04:47 ----- Message from Emma Stevens sent at 05/23/2024 3:50 PM [facility] ----- Please follow up to submit Ucx next week, scheduled for TURP 06/05/2024 Thanks [facility] 2024-05-14 10:07:11 UROLOGY POST-PROCEDURE CALL Procedure: Cystourethroscopy Physician: Emma Stevens MD Are you experiencing any nausea/vomiting? no Are you having any difficulty voiding? no Are you experiencing an increase in your temperature? no Are you having any pain? What is your pain level? no 0 Did you receive post-op education? yes Did you understand the instructions given to you? yes Were you given the number to call for questions or concerns regarding your procedure? yes Are you satisfied with the care you received? yes Post procedure instructions reviewed: Cystoscopy Teachback completed by patient: Knowledge of phone number to call: yes Knowledge of post-procedure instructions: yes [facility] Caity Hernandez RN [facility] 2024-05-13 10:06:26 Reviewed presurgical instructions for Transurethral resection of the prostate (TURP), [facility] preop booklet and bowel prep. Patient verbalized understanding of all instructions and received copies for review at home. Surgery date to be coordinated with outpatient procedural coordinator, PCP clearance request faxed to Dr Judson Kendall [place] . FAX # [phone] TURP scheduled for 06/05/24. Pt was instructed to obtain labs 10 days prior. Pt will require a phone call reminder once PCP clearance has been received . [facility] Shaniqua Nava MA [facility] 2024-05-12 11:00:00 Images from the original note were not included. Patient has been identified by and was provided with cup, antiseptic towelette, and clean catch instructions. 1 urine specimen(s) sent. Unpreserved Urine Culture 1 Aptima tube Other urine [employer] [facility] 2024-05-09 11:51:46 Patient contacted office stating he picked up antibiotics and is wanting to know if he should take his diabetes medication with his antibiotics. This RN suggested patient take all his normal daily medications plus the antibiotic and to monitor his blood sugars while on the antibiotic. Patient verbalized understanding. Patient says that he has already discussed giving a urine sample over the weekend with other urology team members. EL Daugherty RN [facility] 2024-05-08 12:10:14 Patient agreed to greens picker RX for Cipro from a local pharmacy. [facility] EL [facility] 2024-05-08 11:50:14 Addended by: MCKAYLA HILL MA on: 05/08/2024 11:50 AM Modules accepted: Orders EL Hill MA [facility] 2024-05-08 11:12:05 Patient notified. States he has not received medication ( it is a mail out with CT) does not want medication sent to a local pharmacy as [facility] will not cover it. Notified patient I would reach out to the pharmacy to see when medication would be delivered. Instructed that if medication is not received in time to take prior to cysto his procedure may be rescheduled. Patient verbalized understanding. EL Stewart RN [facility] 2024-05-06 16:54:17 UTI Plan Oral abx Ucx 05/09/2024 RTC as scheduled 05/13/2024 with pre procedure UA and IM Gent [facility] 2024-05-02 11:45:00 Images from the original note were not included. Patient has been identified by and was provided with cup, antiseptic towelette, and clean catch instructions. 1 urine specimen(s) sent. Unpreserved Urine Culture 1 Aptima tube Other urine [facility] 2024-04-25 08:37:37 Patient is scheduled for cysto 05/13/23 and will need urine culture preop. Lab order placed at this time. [facility] 2024-04-15 11:15:00 Images from the original note were not included. Venipuncture collection performed by clean technique on the left anticubitus. Total of 1 attempts were made. Slight pressure and a bandage/dressing were applied to the site(s). The patient experienced no complications. The following specimens were processed according to instructions and sent to [facility] laboratories per lab order on 04/15/2024 : LT BLUE SST 1 RED LAV PPT DK GREEN (LiHep) DK GREEN (SodH) KAHN DK BLUE (K2) DK BLUE (S) ACD Blood Culture NIPT/NTD [facility] 2023-12-12 13:57:33 See TE 12/10/23 A Stewart RN [facility] 2023-12-12 13:56:50 Attempted to contact patient with no answer, Voicemail left at this time with clinic phone number and instructed patient to return call. Janna Stewart RN [facility] 2023-12-11 13:26:15 Abdoul Hudson is a 78 year old male that is returning [employer]'s call. Please advise. Blanca Ward [facility] 2023-12-11 13:05:13 Attempted to contact patient with no answer, Voicemail left at this time with clinic phone number and instructed patient to return call. Janna Stewart RN [facility] 2023-12-11 12:57:16 Its not Needs oral laxatives and see PCP URO-UROLOGY STAFF [facility] 2023-12-10 13:14:53 Please advise Kelly Puentes [facility] 2023-12-10 11:39:47 Abdoul Hudson is a 78 year old male Patient called and stated he has been having issues with the medication alfuzosin 10 mg 24 hr tablet - has been constipated for 2 weeks. He is wanting to speak with provider. He is wanting to know if he needs to be seen. His PCP prescribed him laxative as well. Please advise. Manisha Fatima [facility] 2023-05-14 11:04:59 Spoke with patient, [facility]. Patient denies any concerns/ questions at this time. [facility] 2023-05-14 10:51:30 Attempted to contact patient with no answer, Voicemail left at this time with clinic phone number and instructed patient to return call. [facility] 2023-05-11 16:11:38 I do not have a voucher available in clinic he may be able to find one online [facility] 2023-05-11 14:48:32 Attempted to contact patient with no answer, Voicemail left at this time with clinic phone number and instructed patient to return call. [facility] 2023-05-10 08:42:02 Abdoul Hudson is a 77 year old male Pt calling requesting a call back from clinic Pt stated he did not receive a voucher and needs one to ensure that he wont have to come out of pocket for the rx also stating he needs the rx to be delivered to his home. Informed pt I can put a pharmacy down for him to have for [place] and to not be sent to pt stated [facility] some [facility]. Pt stated the pharmacy the rx went to is not the one he needs it to go to. Pt wanted to inform the Provider alfuzosin 10 mg 24 hr tablet [facility] phone number [phone] [address] [place] [address] [facility] Denice Orlando [facility]
[2024-06-06 21:14] LABS: Absolute Eosinophils 0.1 K/uL (0-0.5); Absolute Lymphocytes (CBC) 2.1 K/uL (0.7-4.9); Absolute Monocytes 0.9 K/uL (0.1-1.3); Absolute Neutrophil 6.5 K/uL (1.8-8.0); Basophils % 0.4 % (0-1.3); Eosinophils % 1.2 % (0-4.4); Hemoglobin 13.1 g/dL (13.6-17.9); Lymphocytes % 21.3 % (15.3-44.8); MCH 31.8 pg (27.0-35.0); MCHC 33.5 g/dL (32.0-36.0); MCV 94.8 fL (80-100); MPV 8.4 fL (7.6-11.3); Monocytes % 9.6 % (3.3-12.3); Neutrophils % 67.5 % (41.7-73.7); Platelets 136 thou/uL (152-406); RBC Red Blood Cell Count 4.12 M/uL (4.33-5.43); Red Cell Distribution Width 14.1 % (12.1-15.2)
[2024-06-06 21:27] LABS: Albumin 3.5 g/dL (3.4-5.0); Albumin/Globulin Ratio 0.9 (1.1-1.8); Anion Gap 10.6 mEq/L (5.0-15.0); Bilirubin Direct 0.2 mg/dL (0-0.2); Bilirubin Indirect, Calculated 0.3 mg/dL (0.2-0.8); Bilirubin Total 0.5 mg/dL (0.2-1.0); Globulin 4.1 g/dL (2.3-3.5); Potassium 3.6 mEq/L (3.5-5.1); Protein, Total 7.6 g/dL (6.4-8.2); Troponin High Sensitivity 22.8 pg/mL (<58.9)
--- NOTE | 2024-06-06 21:53 | RAD REPORT ---
EXAMINATION: US LOWER EXTREMITY VENOUS DOPPLER BILATERAL CLINICAL INDICATION: Male, 79 years old.edema TECHNIQUE: Complete bilateral duplex sonography of the lower extremity veins was performed. The exami nation included compression for vein patency, color Doppler imaging and flow augmentation in response to distal compression of the distal external iliac, common femoral, femoral, popliteal, josé miguel vladimir, tibial and great saphenous veins. [id number]. COMPARISON: No prior exams FINDINGS: Duplex sonography imaging demonstrates all deep examined to be fully compressible with spontaneous, p hasic and augmented flow bilaterally. IMPRESSION: No evidence of deep venous thrombosis seen in either lower extremity.
--- NOTE | 2024-06-06 22:01 | EDPHYS ---
Physician Documentation [facility] Name: Abdoul Hudson Age: 79 yrs Sex: Male : 1945 Arrival Date: 06/06/2024 Time: 20:25 Bed 15 Private MD: ED Physician Conner Jefferson HPI: 06/06 21:24 This 79 yrs old Male presents to ER via Ambulatory with complaints of Feet rt Swelling. 21:24 Patient had a TURP procedure performed at [facility] yesterday, has a Godfrey catheter rt in place and urine is draining appropriately. Reports that today, he developed bilateral lower extremity edema. Denies any pain to the region, shortness of breath. States that he feels well otherwise, was told to come to the ED for further evaluation, symptoms are mild in severity, no other aggravating or alleviating factors.. Historical: - Allergies: 20:41 PENICILLINS; ap3 20:41 shrimp; ap3 - PMHx: 20:41 Anxiety; carpal tunnel; diabetes mellitus; GERD; Hypercholesterolemia; Hypertensive ap3 disorder; PTSD; - PSHx: 20:41 Appendectomy; Cholecystectomy; ap3 - Immunization history:: Client reports having NOT received the Covid vaccine. Flu vaccine is up to date. - Infectious Disease History:: Denies. - Social history:: Smoking status: Patient denies any tobacco usage or history of. ROS: 21:24 Constitutional: Negative for fever, chills, and weight loss, Respiratory: Negative for rt shortness of breath, cough, wheezing, and pleuritic chest pain, Abdomen/GI: Negative for abdominal pain, nausea, vomiting, diarrhea, and constipation, MS/Extremity: Negative for injury and deformity, Skin: Negative for injury, rash, and discoloration, Neuro: Negative for headache, weakness, numbness, tingling, and seizure, 21:24 Cardiovascular: Positive for edema, Negative for chest pain, Exam: 21:24 Constitutional: This is a well developed, well nourished patient who is awake, alert, rt and in no acute distress. Head/Face: Normocephalic, atraumatic. Chest/axilla: Normal chest wall appearance and motion. Nontender with no deformity. No lesions are appreciated. Cardiovascular: Regular rate and rhythm with a normal S1 and S2. No gallops, murmurs, or rubs. Normal PMI, no JVD. No pulse deficits. Respiratory: Lungs have equal breath sounds bilaterally, clear to auscultation and percussion. No rales, rhonchi or wheezes noted. No increased work of breathing, no retractions or nasal flaring. Abdomen/GI: Soft, non-tender, with normal bowel sounds. No distension or tympany. No guarding or rebound. No evidence of tenderness throughout. Skin: Warm, dry with normal turgor. Normal color with no rashes, no lesions, and no evidence of cellulitis. Neuro: Awake and alert, GCS 15, oriented to person, place, time, and situation. Cranial nerves II-XII grossly intact. Motor strength 5/5 in all extremities. Sensory grossly intact. Cerebellar exam normal. Normal gait. 21:24 Musculoskeletal/extremity: 1+ bilateral lower extremity edema, symmetric, no overlying skin changes. Vital Signs: 20:40 BP 146 / 75; Pulse 84; Resp 18; Temp 98.4; Pulse Ox 99% ; Weight 79.38 kg; Height 5 ft. ap3 9 in. ; Pain 0/10; 20:40 Body Mass Index 25.84 (79.38 kg, 175.26 cm) ap3 20:40 Pain Scale: Adult ap3 MDM: 20:45 Medical Screening Exam initiated rt 22:40 Differential Diagnosis CHF, ESRD, fluid overload secondary to surgery. Data reviewed: rt vital signs, nurses notes, lab test result(s), EKG, radiologic studies. Care significantly affected by the following chronic conditions: Diabetes. Counseling: I had a detailed discussion with the patient and/or guardian regarding the historical points, exam findings, and any diagnostic results supporting the discharge/admit diagnosis, lab results, radiology results, the need for outpatient follow up. Response to treatment: There is no appreciated change of the patient's symptoms at this time. 06/06 20:46 Order name: Basic Metabolic Panel; Complete Time: 21:37 rt 06/06 20:46 Order name: CBC with Diff; Complete Time: 21:37 rt 06/06 20:46 Order name: LFT's; Complete Time: 21:37 rt 06/06 20:46 Order name: NT PRO-BNP; Complete Time: 21:37 rt 06/06 20:46 Order name: Troponin HS; Complete Time: 21:37 rt 06/06 20:46 Order name: Extrem Venous W Compression Mark US; Complete Time: 21:55 rt 06/06 20:46 Order name: Cardiac monitoring rt 06/06 20:46 Order name: EKG - Nurse/Tech rt 06/06 20:46 Order name: IV Saline Lock rt 06/06 20:46 Order name: Labs collected and sent rt 06/06 20:46 Order name: O2 Per Protocol rt 06/06 20:46 Order name: O2 Sat Monitoring rt Administered Medications: No medications were administered Disposition Summary: 06/06/24 22:00 Discharge Ordered Notes: Location: Home rt Problem: new rt Symptoms: are unchanged rt Condition: Stable rt Diagnosis - Edema, unspecified rt Followup: rt - With: Private Physician - When: 2 - 3 days - Reason: Discharge Instructions: - Discharge Summary Sheet rt - Peripheral Edema rt Forms: - Medication Reconciliation Form rt - Antibiotic Education rt - Prescription Opioid Use rt - Patient Portal Instructions rt - Leadership Thank You Letter rt Signatures: Dispatcher [employer] Bertha Zambrano RN RN ap3 Conner Jefferson MD MD rt Corrections: (The following items were deleted from the chart) 20:46 20:46 BASIC METABOLIC PANEL+C.LAB.BRZ ordered. EDMS EDMS 20:46 20:46 CBC+H.LAB.BRZ ordered. EDMS EDMS 20:46 20:46 HEPATIC FUNCTION+C.LAB.BRZ ordered. EDMS EDMS 20:46 20:46 PROBNP+C.LAB.BRZ ordered. EDMS EDMS 20:46 20:46 Troponin High Sensitivity+C.LAB.BRZ ordered. EDMS EDMS 20:46 20:46 Extrem Venous W Compression Mark+US.RAD.BRZ ordered. EDMS EDMS
--- NOTE | 2024-06-06 22:01 | ER ---
Nurse's Notes [facility] Name: Abdoul Hudson Age: 79 yrs Sex: Male : 1945 Arrival Date: 06/06/2024 Time: 20:25 Bed 15 Private MD: Diagnosis: Edema, unspecified Presentation: 06/06 20:40 Chief complaint: Patient states: he had surgery on his prostate yesterday, and started ap3 having swelling in his feet this morning. patient states when he called his dr, they told him to come to the emergency room for further evaluation. Coronavirus screen: At this time, the client does not indicate any symptoms associated with coronavirus-19. Ebola Screen: No symptoms or risks identified at this time. Initial Sepsis Screen: Does the patient meet any 2 criteria? No. Patient's initial sepsis screen is negative. Does the patient have a suspected source of infection? No. Patient's initial sepsis screen is negative. Risk Assessment: Do you want to hurt yourself or someone else? Patient reports no desire to harm self or others. Onset of symptoms was June 06, 2024. 20:40 Method Of Arrival: Ambulatory ap3 20:40 Acuity: MARICRUZ 3 ap3 Triage Assessment: 20:42 General: Appears in no apparent distress. Behavior is calm, cooperative, appropriate ap3 for age. Pain: Denies pain. Neuro: Level of Consciousness is awake, alert, obeys commands, Oriented to person, place, time, situation. Cardiovascular: Patient's skin is warm and dry. Respiratory: Airway is patent Respiratory effort is even, unlabored, Respiratory pattern is regular, symmetrical. Derm:. Musculoskeletal: Swelling present in right foot and left foot. 20:42 : Godfrey in place. ap3 Historical: - Allergies: 20:41 PENICILLINS; ap3 20:41 shrimp; ap3 - PMHx: 20:41 Anxiety; carpal tunnel; diabetes mellitus; GERD; Hypercholesterolemia; Hypertensive ap3 disorder; PTSD; - PSHx: 20:41 Appendectomy; Cholecystectomy; ap3 - Immunization history:: Client reports having NOT received the Covid vaccine. Flu vaccine is up to date. - Infectious Disease History:: Denies. - Social history:: Smoking status: Patient denies any tobacco usage or history of. Screenin:42 Abuse screen: Denies threats or abuse. Nutritional screening: No deficits noted. ap3 Tuberculosis screening: No symptoms or risk factors identified. Vital Signs: 20:40 BP 146 / 75; Pulse 84; Resp 18; Temp 98.4; Pulse Ox 99% ; Weight 79.38 kg; Height 5 ft. ap3 9 in. ; Pain 0/10; 20:40 Body Mass Index 25.84 (79.38 kg, 175.26 cm) ap3 20:40 Pain Scale: Adult ap3 ED Course: 20:30 Patient arrived in ED. gm2 20:31 Conner Jefferson MD is Attending Physician. rt 20:41 Triage completed. ap3 20:43 Arm band placed on left wrist. ap3 21:00 Inserted saline lock: 22 gauge in left antecubital area, using aseptic technique. Blood oh1 collected. Flushed with 10 mL NS. 21:00 Initial lab(s) drawn, by me, sent to lab. oh1 21:48 Extrem Venous W Compression Mark US In Process Unspecified. EDMS 21:58 Chino Pearl, RN is Primary Nurse. rg5 Administered Medications: No medications were administered Outcome: 22:00 Discharge ordered by . rt 22:07 Patient left the ED. rg5 Signatures: Dispatcher [employer] EDMS Bertha Bell RN BE ap3 Conner Jefferson MD MD rt Laura Pulido 2 Chino Pearl RN RN rg5 Tracy Puentes oh1
[2024-06-07 09:49] VITALS: BP 146/75; TEMP 98.4; O2SAT 99
== END 2024-06-06 22:07 | disposition home or self-care (01) ==
LOC: ER 20:25
DX: R60.9 Edema, unspecified (principal); Z98.890 Other specified postprocedural states
CPT/HCPCS: 36415; 80048; 80076; 83880; 84484; 85025; 93970; 99283

== ENCOUNTER 2024-06-07 11:08 | Emergency (ER) | payer OTHER ==
--- OUTSIDE RECORDS SUMMARY | 2024-06-07 11:13 | XMS REPORT | Continuity of Care Document ---
Author Name Unknown Address [address] [place] [address] [facility] Address [address] [place] [address] Care Team Providers Care Neighborhood Aide Name Role Phone [facility], [facility] Primary Care Physician + Emma Stevens MD Attending Clinician [phone] EMMA STEVENS Attending Clinician Unavailable 2, [facility] Attending Clinician Unavailable Madhavi Moses Attending Clinician Unav ailMADHAVI Morrow Attending Clinician Unavaila ble Madhavi Moses Attending Clinician [phone] Doctor Unassigned, Percival Attending Clinician U navailEmma Lopez MD Attending Clinician [phone] 2, [facility] Surg Proc Attending Clinician Unavailab le 2, [facility] Attending Clinician Unavailable Musa Ballard RN Attending Clinician Unavail able MELO BETANCOURT Attending Clinician Unavailable MELO BETANCOURT Attending Clinician Unavailable Leonides Womack MD Attending Clinician [phone] EMMA STEVENS Admitting Clinician Unavailable Emma Stevens MD Admitting Clinician [phone] MELO BETANCOURT Admitting Clinician Unavailable Payers Payer Name Policy Type Policy Number Effective Date Expirati on Date Source [facility] [id number] 2000 00:00:00 Problems Condition Name Condition Details Condition Category Status Onset Date Resolution Date Last Treatment Date Treating Clinician Comments Source 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 2-20 00:00: 00 [facility] Benign prostatic hyperplasi a with nocturia Benign prostatic hyperplasi a with nocturia Disease Active 1-28 00:00: 00 [facility] Gastroente ritis Gastroente ritis Disease Active 2020-04 2-16 00:00: 00 [facility] Allergies, Adverse Reactions, Alerts Allergy Name Allergy Type Status Severity Reaction(s) Onset Date Inactive Date Treating Clinician Comments Source PENICILL IN DRUG INGREDI Active Med Hives 2020-04 2 00:00: 00 [facility] Penicill in Drug Allergy Active Hives 2020-04 00:00: 00 [facility] SHRIMP DRUG INGREDI Active Hives 824 00:00: 00 [facility] Shrimp Propensi ty to adverse reaction s Active Hives 8 00:00: 00 [facility] Social History Social Habit Start Date Stop Date Quantity Comments Source Sexual orientation [facility] History of tobacco use Current smoker [facility] History of Social function 2023-06-12 00:00:00 2023-06-12 00:00:00 [facility] Exposure to SARS-CoV-2 (event) 2022-06-25 00:00:00 2022-07-05 09:30:00 Not sure [facility] Tobacco Comment 2022-03-30 00:00:00 2022-03-30 00:00:00 pt quit smoking 48 years ago [facility] Tobacco use and exposure 2022-03-30 00:00:00 2022-03-30 00:00:00 Smokeless tobacco non-user [facility] Sex assigned at 1945 00:00:00 1945 00:00:00 [facility] Smoking Status Start Date Stop Date Source Ex-smoker 2022-03-30 00:00:00 2022-03-30 00:00:00 [facility] Medications Ordered Medication Name Filled Medication Name [...] over 2-5 Minutes, 2 mL, D[facility] Recovery [facility] lidocaine (XYLOCAINE) 2 % jelly URO-JET 06-05 18:27: 00 06-05 22:39 :30 No PRN, Starting on Evelia 06/05/24 at 1227, Until Evelia 06/05/24 at 1639, Routine, Intra-op [facility] sodium chloride 0.9 % irrigation solution 06-05 18:18: 00 06-05 18:41 :59 No PRN, Starting on Evelia 06/05/24 at 1218, Until Evelia 06/05/24 at 1241, Intra-op [facility] aspirin 81 mg chewable tablet 06-05 12:41: 59 Yes 81mg Take 1 tablet by mouth weekly. [facility] ciprofloxac in HCl 500 mg tablet 06-05 00:00: 00 06-11 05:59 :00 Yes [id number] 500mg Take 1 tablet by mouth every 12 (twelve) hours for 5 days. [facility] acetaminoph en 500 mg tablet 05-21 00:00: 00 Yes 500mg Take 1 tablet by mouth every 8 (eight) hours as needed. [facility] gentamicin injection 160 mg 05-13 16:00: 00 05-13 15:48 :00 No [id number] 160mg 160 mg, Intramuscu lar, ONCE, 1 dose, On Sun05/13/24 at 1000, PRO, Reason for Anti-Infec tive: Surgical Prophylaxi s, Surgical Prophylaxi s: Genitourin sima, Duration of therapy: within 24 hours of surgery [facility] lidocaine (XYLOCAINE) 2 % jelly URO-JET 10 mL 05-13 15:15: 00 05-13 15:58 :00 No [id number] 10mL 10 mL, Urethral, ONCE, 1 dose, On Sun05/13/24 at 0915, Routine [facility] ciprofloxac in HCl 500 mg tablet 05-08 00:00: 00 06-05 00:00 :00 No [id number] 500mg Take 1 tablet by mouth every 12 (twelve) hours. [facility] ciprofloxac in HCl 500 mg tablet 05-06 00:00: 00 05-08 00:00 :00 No [id number] 500mg Take 1 tablet by mouth every 12 (twelve) hours for 5 days. [facility] mirabegron 50 mg tablet 2023-04 00:00: 00 06-15 05:59 :00 Yes [id number] 50mg Take 1 tablet by mouth in the morning for 60 days. [facility] amLODIPine 5 mg tablet 11-07 00:00: 00 Yes 5mg Take 1 tablet by mouth in the morning. [facility] levothyroxi ne 100 mcg tablet 09-03 08:51: 48 Yes 100ug Take 1 tablet by mouth. [facility] tamsulosin 0.4 mg 24 hr capsule 09-03 08:51: 48 Yes Take by mouth daily. [facility] tamsulosin 0.4 mg 24 hr capsule 06-12 09:02: 28 06-12 00:00 :00 No Take by mouth daily. [facility] alfuzosin 10 mg 24 hr tablet 06-12 00:00: 00 Yes [id number] 01 10mg Take 1 tablet by mouth in the morning. [facility] metFORMIN 500 mg tablet 1-29 00:00: 00 Yes 500mg Take 1 tablet by mouth in the morning. [facility] alfuzosin 10 mg 24 hr tablet 05-02 00:00: 00 06-12 00:00 :00 No [id number] 01 10mg Take 1 tablet by mouth in the morning. [facility] Cholecalcif pk, Vitamin D3, 50 mcg (2,000 unit) tablet 05-18 00:00: 00 Yes 50ug Take 50 mcg by mouth in the morning. [facility] No known medications 2021-04 15:33: 54 No No known medication s [facility] tamsulosin 0.4 mg 24 hr capsule 2021-04 00:00: 00 05-02 00:00 :00 No .8mg Take by mouth daily. [facility] finasteride 5 mg tablet 11-22 00:00: 00 Yes 5mg 1 tablet. [facility] sildenafiL 100 mg tablet 11-22 00:00: 00 Yes 50mg Take 0.5 tablets by mouth. [facility] atorvastati n 40 mg tablet 08-29 00:00: 00 Yes 20mg Take 0.5 tablets by mouth in the morning. [facility] docusate 100 mg capsule 08-29 00:00: 00 Yes 100mg Take 1 capsule by mouth in the morning and 1 capsule in the evening. [facility] ferrous gluconate 324 mg (38 mg iron) tablet 08-29 00:00: 00 Yes 324mg Take 1 tablet by mouth in the morning. [facility] glipiZIDE 10 mg tablet 08-29 00:00: 00 Yes 5mg Take 0.5 tablets by mouth in the morning. [facility] vitamin B-12 500 mcg tablet 08-22 00:00: 00 Yes 500ug Take 1 tablet by mouth in the morning. [facility] lisinopriL 10 mg tablet 06-30 00:00: 00 Yes 10mg Take 1 tablet by mouth in the morning. [facility] omeprazole 20 mg capsule 06-30 00:00: 00 Yes 20mg 1 capsule. [facility] ferrous sulfate 325 mg (65 mg iron) tablet 2020-04 00:00: 00 05-03 05:59 :00 No [id number] 325mg Take 1 tablet by mouth daily for 30 days. [facility] enoxaparin (LOVENOX) injection 40 mg 2020-04 15:00: 00 Yes 40mg 40 mg, Subcutaneo us, DAILY, First dose on Sun04/01/21 at 0900, Until Discontinu ed, Routine [facility] Sliding Scale Insulin - Lispro (HumaLOG) + Fsbg Testing 2020-04 03:00: 00 Yes Subcutaneo us, TID MEALS+HS, First dose on Sun03/31/21 at 2100, Until Discontinu ed, Routine [facility] NaCl 0.9% (NS) IV infusion 1,000 mL 2020-04 00:45: 00 Yes 1000mL at 125 mL/hr, IV Infusion, CONTINUOUS , Starting on Sun03/31/21 at 1845, Until Discontinu ed, Routine [facility] ondansetron (ZOFRAN (PF)) injection 4 mg 2020-04 00:31: 41 Yes 4mg 4 mg, Slow IV Push, Q6HPRN, Starting on Sun03/31/21 at 1831, Until Discontinu ed, Routine, Nausea and Vomiting (N/V) [facility] acetaminoph en (TYLENOL) tablet 650 mg 2020-04 00:31: 41 Yes 650mg 650 mg, Oral, Q6HPRN, Starting on Sun03/31/21 at 1831, Until Discontinu ed, Routine, Pain (scale 1-3) [facility] HYDROcodone -acetaminop hen (NORCO 5) 5-325 mg tablet 1 tablet 2020-04 00:31: 41 04-03 00:30 :41 No 1{tbl} 1 tablet, Oral, Q6HPRN, Starting on Sun03/31/21 at 1831, Until 04/02/21 at 1830, Routine, Pain (scale 4-6) [facility] Vital Signs Vital Name Observation Time Observation Value Comments S isabell Systolic blood pressure 2024-06-05 19:25:00 147 mm[Hg] [facility] Diastolic blood pressure 2024-06-05 19:25:00 82 mm[Hg] [facility] Heart rate 2024-06-05 19:25:00 74 /min [facility] Body temperature 2024-06-05 19:25:00 36.11 Loan [facility] Respiratory rate 2024-06-05 19:25:00 14 /min [facility] Oxygen saturation in Arterial blood by Pulse oximetry 2024-06-05 19:25:00 95 /min [facility] Body height 2024-05-26 20:03:00 175.3 cm [facility] Body weight 2024-05-26 20:03:00 79.8 kg [facility] BMI 2024-05-26 20:03:00 25.97 kg/m2 [facility] Systolic blood pressure 2024-06-05 14:38:00 155 mm[Hg] [facility] Diastolic blood pressure 2024-06-05 14:38:00 87 mm[Hg] [facility] Heart rate 2024-06-05 14:38:00 85 /min [facility] Body temperature 2024-06-05 14:38:00 36.56 Loan [facility] Respiratory rate 2024-06-05 14:38:00 12 /min [facility] Oxygen saturation in Arterial blood by Pulse oximetry 2024-06-05 14:38:00 97 /min [facility] Body height 2024-05-26 20:03:00 175.3 cm [facility] Body weight 2024-05-26 20:03:00 79.8 kg [facility] BMI 2024-05-26 20:03:00 25.97 kg/m2 [facility] Systolic blood pressure 2024-05-13 14:21:00 133 mm[Hg] [facility] Diastolic blood pressure 2024-05-13 14:21:00 89 mm[Hg] [facility] Heart rate 2024-05-13 14:21:00 87 /min Unive [facility] Respiratory rate 2024-05-13 14:21:00 16 /min [facility] Body height 2024-05-13 14:21:00 175.3 [facility] 2024-05-13 14:21:00 79.788 kg [facility] BMI 2024-05-13 14:21:00 25.98 kg/m2 [facility] Oxygen saturation in Arterial blood by Pulse oximetry 2024-05-13 14:21:00 98 /min [facility] Systolic blood pressure 2024-04-15 15:21:00 136 mm[Hg] [facility] Diastolic blood pressure 2024-04-15 15:21:00 82 mm[Hg] [facility] Heart rate 2024-04-15 15:21:00 94 /min Unive [facility] Body height 2024-04-15 15:21:00 175.3 cm [facility] Body weight 2024-04-15 15:21:00 78.926 kg [facility] BMI 2024-04-15 15:21:00 25.70 kg/m2 [facility] Oxygen saturation in Arterial blood by Pulse oximetry 2024-04-15 15:21:00 97 /min [facility] Systolic blood pressure 2023-09-04 13:48:00 133 mm[Hg] [facility] Diastolic blood pressure 2023-09-04 13:48:00 77 mm[Hg] [facility] Heart rate 2023-09-04 13:48:00 84 /min Unive [facility] Body temperature 2023-09-04 13:48:00 35.56 Loan [facility] Respiratory rate 2023-09-04 13:48:00 18 /min [facility] Body weight 2023-09-04 13:48:00 81.194 kg [facility] BMI 2023-09-04 13:48:00 26.43 kg/m2 [facility] Oxygen saturation in Arterial blood by Pulse oximetry 2023-09-04 13:48:00 95 /min [facility] Systolic blood pressure 2023-06-12 14:33:00 125 mm[Hg] [facility] Diastolic blood pressure 2023-06-12 14:33:00 71 mm[Hg] [facility] Heart rate 2023-06-12 14:33:00 94 /min Unive [facility] Respiratory rate 2023-06-12 14:33:00 18 /min [facility] Body height 2023-06-12 14:33:00 175.3 cm [facility] Body weight 2023-06-12 14:33:00 82.555 kg [facility] BMI 2023-06-12 14:33:00 26.88 kg/m2 [facility] Oxygen saturation in Arterial blood by Pulse oximetry 2023-06-12 14:33:00 96 /min [facility] Systolic blood pressure 2023-05-02 14:45:00 134 mm[Hg] [facility] Diastolic blood pressure 2023-05-02 14:45:00 85 mm[Hg] [facility] Heart rate 2023-05-02 14:45:00 94 /min Unive [facility] Respiratory rate 2023-05-02 14:45:00 18 /min [facility] Body height 2023-05-02 14:45:00 175.3 cm [facility] Body weight 2023-05-02 14:45:00 82.555 kg [facility] BMI 2023-05-02 14:45:00 26.88 kg/m2 [facility] Oxygen saturation in Arterial blood by Pulse oximetry 2023-05-02 14:45:00 97 /min [facility] Systolic blood pressure 2022-07-05 14:55:00 135 mm[Hg] [facility] Diastolic blood pressure 2022-07-05 14:55:00 76 mm[Hg] [facility] Heart rate 2022-07-05 14:55:00 89 /min Un[facility] Body temperature 2022-07-05 14:55:00 36.83 Loan [facility] Respiratory rate 2022-07-05 14:55:00 18 /min [facility] Body height 2022-07-05 14:55:00 175.3 cm [facility] Body weight 2022-07-05 14:55:00 83.19 kg [facility] BMI 2022-07-05 14:55:00 27.08 kg/m2 [facility] Oxygen saturation in Arterial blood by Pulse oximetry 2022-07-05 14:55:00 97 /min [facility] Systolic blood pressure 2022-03-30 21:32:00 151 mm[Hg] [place] [facility] Diastolic blood pressure 2022-03-30 21:32:00 78 mm[Hg] [facility] Heart rate 2022-03-30 21:32:00 95 /min Unive [facility] Body temperature 2022-03-30 21:32:00 36.28 Loan [facility] Respiratory rate 2022-03-30 21:32:00 18 /min [facility] Body height 2022-03-30 21:32:00 175.3 cm [facility] Body weight 2022-03-30 21:32:00 80.922 kg [facility] BMI 2022-03-30 21:32:00 26.35 kg/m2 [facility] Oxygen saturation in Arterial blood by Pulse oximetry 2022-03-30 21:32:00 98 /min [facility] Systolic blood pressure 2021-04-02 13:40:00 118 mm[Hg] [facility] Diastolic blood pressure 2021-04-02 13:40:00 68 mm[Hg] [facility] Heart rate 2021-04-02 13:40:00 73 /min Unive [facility] Body temperature 2021-04-02 13:40:00 36.72 Loan [facility] Respiratory rate 2021-04-02 13:40:00 17 /min [facility] Oxygen saturation in Arterial blood by Pulse oximetry 2021-04-02 13:40:00 99 /min [facility] Body weight 2021-04-02 09:27:00 73.5 kg [facility] BMI 2021-04-02 09:27:00 23.93 kg/m2 [facility] Body height 2021-03-31 22:39:00 175.3 cm [facility] Procedures Procedure Date / Time Performed Performing Clinician Source POCT GLUCOSE (AUTOMATED) 2024-06-05 18:47:00 [facility] POCT GLUCOSE (AUTOMATED) 2024-06-05 18:47[facility] [address] TRURL ELECTROSURG RESCJ PROSTATE BLEED COMPLETE 2024-06-05 17:11:00 [facility] POCT GLUCOSE (AUTOMATED) 2024-06-05 16:02:00 [facility] POCT GLUCOSE (AUTOMATED) 2024-06-05 16:02:00 [facility] POCT URINALYSIS AUTO 2024-05-13 14:17:00 Rodney [facility] TAD,POST-VOID RES,US,NON-IMAGING 2024-05-13 [facility],US,NON-IMAGING 2024-04-15 15:29:00 [facility] POCT URINALYSIS AUTO 2024-04-15 00:00:00 Rodney [facility] POCT URINALYSIS AUTO 2023-09-04 13:57:00 [facility]-VOID RES,US,NON-IMAGING 2023-09-04 13:56:00 [facility]O 2023-06-12 15:00:00 [facility] TAD,POST-VOID RES,US,NON-IMAGING 2023-05-02 14:51:00 [facility] AUTO 2023-05-02 00:00:00 Phill Cancino [facility] EXTERNAL PROVIDER RECORDS 2023-04-06 06:01:00 Do ctor Unassigned, Percival [facility] POCT URINALYSIS AUTO 2022-07-05 15:04:00 Ángel Stevens [facility] DISCLOSURE AND CONSENT, MEDICAL AND SURGICAL PROCEDURES 2022-07-05 05:01:00 Doctor Unassigned, Percival [facility] ASSIGNMENT OF BENEFITS 2022-06-21 13:52:02 Docto r Unassigned, Percival [facility] PATIENT QUESTIONNAIRE 2022-03-30 06:01:00 Doctor Unassigned, Percival [facility] INSURANCE CORRESPONDENCE 2022-02-07 05:01:00 Doc tor Unassigned, Percival [facility] EXTERNAL PROVIDER RECORDS 2021-04-25 06:01:00 Do ctor Unassigned, Percival [facility] POCT GLUCOSE (AUTOMATED) 2021-04-02 13:43:00 Nora Betancourt [facility] POCT GLUCOSE (AUTOMATED) 2021-04-02 02:24:00 Nora Betancourt [facility] POCT GLUCOSE (AUTOMATED) 2021-04-01 23:18:00 Nora Betancourt [facility] FERRITIN SERUM 2021-04-01 18:27:00 Lorri Betancourtshua [facility] VITAMIN B12, LEVEL 2021-04-01 18:27:00 Lorri Betancourtshua [facility] FOLATE 2021-04-01 18:27:00 Lorri Betancourtshua [facility] IRON PANEL 2021-04-01 18:27:00 [facility]afin [facility] CLOSTRIDIUM DIFFICILE TOXIN 2021-04-01 18:27:00 Lorri Betancourtshua [facility] POCT GLUCOSE (AUTOMATED) 2021-04-01 17:43:00 Leonides Bernal [facility] POCT GLUCOSE (AUTOMATED) 2021-04-01 13:42:00 Leonides Bernal [facility] BASIC METABOLIC PANEL (NA, K, CL, CO2, GLUCOSE, BUN, CREATININE, CA) 2021-04-01 10:01:00 Leonides Womack [facility] CBC WITH DIFF 2021-04-01 10:00:00 Leonides Womack [facility] POCT GLUCOSE (AUTOMATED) 2021-04-01 03:24:00 Leonides Bernal [facility] CBC WITH DIFF 2021-04-01 02:54:00 Leonides Womack [facility] BASIC METABOLIC PANEL (NA, K, CL, CO2, GLUCOSE, BUN, CREATININE, CA) 2021-04-01 02:53:00 Leonides Womack [facility] Encounters Start Date/Time End Date/Time Encounter Type Admission Type Attending [facility] Emergency Department Facility Care Department Encounter ID Source 2024-06-06 00:00:00 2024-06-06 20:27:57 Telephone Emma Stevens [facility] [id number] 350.1.13.10 4.2.7.2.686 [id number] [facility] 2024-06-05 08:19:00 2024-06-05 14:15:00 Outpatient R EMMA STEVENS [facility] [id number] [facility] 2024-06-05 08:19:00 2024-06-05 14:15:00 Hospital Encounter Emma Stevens AT [facility] [id number] 350.1.13.10 4.2.7.2.686 [id number] [facility] 2024-06-05 00:00:00 2024-06-05 13:23:51 Telephone Emma Stevens [facility] [id number] 350.1.13.10 4.2.7.2.686 [id number] [facility] 2024-06-05 10:47:00 2024-06-05 12:36:00 Surgery Emma Stevens [facility] 1.2.840.114 350.1.13.10 4.2.7.2.686 [id number] [facility] 2024-06-04 08:45:00 2024-06-04 09:00:00 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 Visit 2, [facility] NallelykaylanbeauEmma 2, [facility] Lab [facility] [id number] 350.1.13.10 4.2.7.2.686 [id number] [facility] 2024-06-04 08:45:00 2024-06-04 08:45:00 [facility] [id number] [facility] 2024-05-26 11:30:00 2024-05-26 11:45:00 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 Visit 2, [facility] Rodney Emma 2, [facility] Lab [facility] 1.2.840.114 350.1.13.10 4.2.7.2.686 [id number] [facility] 2024-05-26 11:30:00 2024-05-26 11:30:00 Outpatient R EMMA STEVENS [facility] [id number] [facility] 2024-05-26 00:00:00 2024-05-26 11:06:42 [facility] 1.2.840.114 350.1.13.10 4.2.7.2.686 [id number] [facility] 2024-05-19 14:03:52 2024-05-19 23:59:00 Outpatient R EMMA STEVENS [facility] [id number] [facility] 2024-05-19 14:03:52 2024-05-19 23:59:00 Hospital Encounter Emma Stevens [facility] 1.2.840.114 350.1.13.10 4.2.7.2.686 [id number] [facility] 2024-05-14 00:00:00 2024-05-14 10:10:06 Telephone Emma Stevens [facility] 1.2.840.114 350.1.13.10 4.2.7.2.686 [id number] [facility] 2024-05-13 00:00:00 2024-05-13 10:07:43 Telephone [facility] 1.2.840.114 350.1.13.10 4.2.7.2.686 [id number] [facility] 2024-05-13 08:30:00 2024-05-13 09:58:06 [facility] [id number] [facility] 2024-05-13 08:30:00 2024-05-13 09:58:06 Office Visit Rodney Emma [facility] 1.2.840.114 350.1.13.10 4.2.7.2.686 [id number] [facility] 2024-05-12 11:00:00 2024-05-12 11:15:00 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 Visit 2, [facility] Emma Stevens 2, [facility] 1.2.840.114 350.1.13.10 4.2.7.2.686 [id number] [facility] 2024-05-12 11:00:00 2024-05-12 10:11:54 Outpatient R EMMA STEVENS [facility] [id number] [facility] 2024-05-06 00:00:00 2024-05-06 17:02:31 Telephone Emma Stevens [facility] 1.2.840.114 350.1.13.10 4.2.7.2.686 [id number] [facility] 2024-05-02 11:45:00 2024-05-02 12:00:00 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 Visit 2, [facility] Emma Stevens 2, [facility] Lab [facility] PROFESSIO NAL BUILDING 1.2.840.114 350.1.13.10 4.2.7.2.686 [id number] [facility] 2024-05-02 11:45:00 2024-05-02 11:45:00 Outpatient R NALLELYKAYLANBeau [facility] [id number] [facility] 2024-04-25 00:00:00 2024-04-25 08:38:50 Telephone Nallelymeli [facility] 1.2.840.114 350.1.13.10 4.2.7.2.686 [id number] [facility] 2024-04-15 11:15:00 2024-04-15 11:30:00 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 Visit 2, [facility] Lab Emma Stevens 2, [facility] Lab [facility] BUILDING 1.2.840.114 350.1.13.10 4.2.7.2.686 [id number] [facility] 2024-04-15 11:15:00 2024-04-15 11:15:00 [facility] [id number] [facility] 2024-04-15 09:45:00 2024-04-15 10:00:00 Office Visit Nallelykaylanbeau [facility] 1.2.840.114 350.1.13.10 4.2.7.2.686 [id number] [facility] 2024-03-04 10:15:00 2024-03-04 10:15:00 Outpatient R ALZWERI, [facility] [id number] [facility] 2023-12-11 00:00:00 2023-12-12 13:51:49 Telephone Emma Stevens [facility] 1.2.840.114 350.1.13.10 4.2.7.2.686 [id number] [facility] 2023-12-10 00:00:00 2023-12-11 10:09:50 [facility] 1.2.840.114 350.1.13.10 4.2.7.2.686 [id number] [facility] 2023-09-04 10:00:00 2023-09-04 10:00:00 Office Visit Barak [facility] 1.2.840.114 350.1.13.10 4.2.7.2.686 [id number] [facility] 2023-09-04 10:00:00 2023-09-04 09:07:09 Outpatient R REE CANCINOTNEY [facility] [id number] [facility] 2023-06-12 09:30:00 2023-06-12 09:30:00 Office Visit Cancino[facility] 1.2.840.114 350.1.13.10 4.2.7.2.686 [id number] [facility] 2023-06-12 09:30:00 2023-06-12 09:05:18 [facility] [id number] [facility] 2023-05-10 00:00:00 2023-05-10 00:00:00 Telephone Cancino [facility] BUILDING 1.2.840.114 350.1.13.10 4.2.7.2.686 [id number] [facility] 2023-05-02 09:45:00 2023-05-02 09:45:00 [facility] 1.2840.114 350.1.13.10 4.2.7.2.686 [id number] [facility] 2023-05-02 09:45:00 2023-05-02 09:20:19 [facility] [id number] [facility] 2023-04-06 00:00:00 2023-04-06 00:00:00 Orders Only Doctor Unassigned, Percival [facility] 1.2840.114 350.1.13.10 4.2.7.2.686 [id number] [id number] [facility] 2022-07-05 10:00:00 2022-07-05 11:39:53 Outpatient [facility] [id number] [facility] 2022-07-05 10:00:00 2022-07-05 11:39:53 Office Visit Emma Stevens Rm2, Adc Surg [facility] 1.2840.114 350.1.13.10 4.2.7.2.686 [id number] [facility] 2022-07-05 00:00:00 2022-07-05 00:00:00 Orders Only Doctor Unassigned, Percival [facility] 1.2840.114 350.1.13.10 4.2.7.2.686 [id number] [id number] [facility] 2022-07-04 00:00:00 2022-07-04 00:00:00 Telephone Emma Stevens [facility] 1.2840.114 350.1.13.10 4.2.7.2.686 [id number] [facility] 2022-06-21 08:00:00 2022-06-21 08:32:37 Outpatient R JAD [facility] [id number] [facility] 2022-06-21 08:00:00 2022-06-21 08:15:00 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 Visit 2, [facility] 1.2840.114 350.1.13.10 4.2.7.2.686 [id number] [facility] 2022-06-21 00:00:00 2022-06-21 00:00:00 Orders Only Doctor Unassigned, Percival [facility] 1.20.114 350.1.13.10 4.2.7.2.686 [id number] [id number] [facility] 2022-04-03 00:00:00 2022-04-03 00:00:00 Case Management Rodney [facility] BUILDING 1.2840.114 350.1.13.10 4.2.7.2.686 [id number] [facility] 2022-03-30 16:30:00 2022-03-30 16:30:00 Office Visit Rodney [facility] BUILDING 1.2840.114 350.1.13.10 4.2.7.2.686 [id number] [facility] 2022-03-30 16:30:00 2022-03-30 15:48:26 Outpatient R RODNEY [facility] [id number] [facility] 2022-03-30 00:00:00 2022-03-30 00:00:00 Orders Only Doctor Unassigned, Percival [facility] 1.20.114 350.1.13.10 4.2.7.2.686 [id number] [id number] [facility] 2022-02-07 00:00:00 2022-02-07 00:00:00 Orders Only Doctor Unassigned, Percival [facility] 1.2.840.114 350.1.13.10 4.2.7.2.686 [id number] [id number] [facility] 2021-04-25 00:00:00 2021-04-25 00:00:00 Orders Only Doctor Unassigned, Percival [facility] 1.2.840.114 350.1.13.10 4.2.7.2.686 [id number] [id number] [facility] 2021-04-04 00:00:00 2021-04-04 00:00:00 Transition of Care Musa Ballard 1.2.840.114 350.1.13.10 4.2.7.2.686 [id number] [facility] 2021-03-31 16:22:00 2021-04-02 10:37:00 Inpatient U MELO BETANCOURT [facility] [id number] [facility] 2021-03-31 16:22:00 2021-04-02 10:37:00 Hospital Encounter Leonides Womack Joshua [facility] 1.2.840.114 350.1.13.10 4.2.7.2.686 [id number] [facility] Results Test Description Test Time Test Comments Results Result Co mments Source [facility] GLUCOSE (AUTOMATED)2024-06-05 18:47:57* Test Item Value Reference Range Interpretation Comme nts POCT GLU (test code = 0483886811) 125 mg/dL 70-110 H Lab Interpretation (test cod e = 75173-0) Abnormal [facility] GLUCOSE (AUTOMATED)2024-06-05 16:03:20* Test Item Value Reference Range Interpretation Comme nts POCT GLU (test code = 4250940014) 159 mg/dL 70-110 H Lab Interpretation (test cod e = 38001-5) Abnormal [facility] GLUCOSE (AUTOMATED)2024-06-05 16:03:20* Test Item Value Reference Range Interpretation Comme nts POCT GLU (test code = 2451134898) 159 mg/dL 70-110 H Lab Interpretation (test cod e = 12722-7) Abnormal [facility] Urinalysis, [id number] 14:23:00 * Test Item Value Reference Range [...] U APPEAR (test code = 3267) clear [facility],POST-VOID RES,US,[id number] 00:00:00* Test Item Value Reference Range Interpretation Comme nts PVR (URINE VOLUME) (test code = 5193) 0 ml 0-100 [facility] Urinalysis, [id number] 15:31:00 * Test Item Value Reference Range [...] clear Lab Interpretation (test cod e = 02258-3) Abnormal [facility],POST-VOID RES,US,[id number] 15:29:00* Test Item Value Reference Range Interpretation Comme nts PVR (URINE VOLUME) (test code = 5193) 5 ml 0-100 [facility] [id number] 13:57:00 * Test Item Value Reference Range [...] clear Lab Interpretation (test cod e = 13060-3) [facility]normal [facility], [id number] 13:57:00 * Test Item Value Reference Range [...] clear Lab Interpretation (test cod e = 02752-4) Abnormal [facility],POST-VOID RES,US,[id number] 13:56:00* Test Item Value Reference Range Interpretation Comme nts PVR (URINE VOLUME) (test code = 5193) 54 ml 0-100 [facility],POST-VOID RES,US,[id number] 13:56:00* Test Item Value Reference Range Interpretation Comme nts PVR (URINE VOLUME) (test code = 5193) 54 ml 0-100 [facility] Ur[facility]ysis, [id number] 15:01:00 * Test Item Value Reference Range [...] U APPEAR (test code = 3267) Clear [facility] Urinalysis, [id number] 15:01:00 * Test Item Value Reference Range [...] U APPEAR (test code = 3267) Clear [facility] Urinalysis, [id number] 15:01:00 * Test Item Value Reference Range [...] U APPEAR (test code = 3267) Clear [facility], [id number] 14:51:00 * Test Item Value Reference Range [...] U APPEAR (test code = 3267) clear [facility],POST-VOID RES,US,[id number] 14:51:00* Test Item Value Reference Range Interpretation Comme nts PVR (URINE VOLUME) (test code = 5193) 35 ml 0-100 [facility] Urinalysis, [id number] 14:51:00 * Test Item Value Reference Range [...] U APPEAR (test code = 3267) clear [facility],POST-VOID RES,US,[id number] 14:51:00* Test Item Value Reference Range Interpretation Comme nts PVR (URINE VOLUME) (test code = 5193) 35 ml 0-100 [facility], [id number] 15:04:00 * Test Item Value Reference Range [...] clear Lab Interpretation (test cod e = 04421-7) Normal [facility] URINALYSIS, [id number] 15:04:00 * Test Item Value Reference Range [...] clear Lab Interpretation (test cod e = 69182-0) Normal [facility] GLUCOSE (AUTOMATED)2021-04-02 15:19:24* Test Item Value Reference Range Interpretation Comme nts POCT GLU (test code = 1861573064) 117 mg/dL 70-110 H Lab Interpretation (test cod e = 00520-8) Abnormal [facility] GLUCOSE (AUTOMATED)2021-04-02 02:33:23* Test Item Value Reference Range Interpretation Comme nts POCT GLU (test code = 2225564673) 122 mg/dL 70-110 H Lab Interpretation (test cod e = 64714-8) Abnormal [facility] ResourcesFOLATE2021-12-17 23:56:45* Test Item Value Reference Range Interpretation Comme nts FOLATE SER (test code = 5687107978) 10.5 ng/mL 3.0-20.0 Lab Interpretation (test cod e = 80061-1) Normal [facility] ResourcesVITAMIN B12, [id number] 23:46:04* Test Item Value Reference Range Interpretation Comme nts VIT B12 (test code = 5285042474) 726 pg/mL 240-930 SHILPI (test code = SHILPI) Biotin has been reported to cause a positive bias, interpret results relative to patient's use of biotin. Lab Interpretation (test code = 05630-0) Normal [facility] GLUCOSE (AUTOMATED)2021-04-01 23:24:57* Test Item Value Reference Range Interpretation Comme nts POCT GLU (test code = 3640858223) 147 mg/dL 70-110 H Lab Interpretation (test cod e = 42160-8) Abnormal [facility] ResourcesFERRITIN [id number] 20:10:51* Test Item Value Reference Range Interpretation Comme nts FERRITIN (test code = 1651484794) 11.6 ng/mL 18.0-464.0 L SHILPI (test code = SHILPI) Biotin has been reported to cause a negative bias, interpret results relative to patient's use of biotin. Lab Interpretation (test code = 91332-7) Abnormal [facility] [place] [facility] ResourcesIRO [id number] 19:44:22* Test Item Value Reference Range Interpretation Comme nts IRON (test code = 2158303706) 17 ug/dL 50-160 L TIBC (test code = 8735438411) 414 ug/dL 250-410 H % FE SAT (test code = 6976732536) 4 % 20-50 L Lab Interpretation (test cod e = 72793-6) Abnormal [facility] GLUCOSE (AUTOMATED)2021-04-01 17:45:12* Test Item Value Reference Range Interpretation Comme nts POCT GLU (test code = 5178608984) 115 mg/dL 70-110 H Lab Interpretation (test cod e = 06240-9) Abnormal [facility] GLUCOSE (AUTOMATED)2021-04-01 14:31:40* Test Item Value Reference Range Interpretation Comme nts POCT GLU (test code = 7400884321) 83 mg/dL 70-110 Lab Interpretation (test cod e = 30007-4) Normal [facility] Metabolic Panel (NA, K, CL, CO2, GLUCOSE, BUN, CREATININE, CA)2021-04-01 10:57:18* Test Item Value Reference Range Interpretation Comme nts NA (test code = 3230286672) 134 mmol/L 135-145 L K (test code = 6422484796) 3.6 mmol/L 3.5-5.0 CL (test code = 0347465244) 110 mmol/L 98-108 H CO2 TOTAL (test code = 6440551456) 12 mmol/L 23-31 L AGAP (test code = 1040012978) 2-16 BUN (test code = 8377858871) 34 mg/dL 7-23 H GLUCOSE (test code = 3328650114) 67 mg/dL 70-110 L CREATININE (test code = 0145983680) 1.41 mg/dL 0.60-1.25 H CALCIUM (test code = 7577578552) 7.5 mg/dL 8.6-10.6 L eGFR (test code = 4241440481) mL/min/1.73m2 SHILPI (test code = SHILPI) Association [...] imaging tests). Lab Interpretation (test code = 36592-0) Abnormal [facility] with [id number] 10:47:18* Test Item Value Reference Range Interpretation Comme nts WBC (test code = 6690-2) See_Comment [Automated [employer]] The system which generated this result transmitted reference range: 4.20 - 10.70 10*3/?L. The reference range was not used to interpret this result as normal/abnormal. RBC (test code = 789-8) See_Comment L [Automated [employer]] The system which generated this result transmitted [...] g/dL 31.2-35.0 L RDW-SD (test code = 43333-3) 44.8 fL 38.5-51.6 RDW-CV (test code = 788-0) 17.0 % 12.1-15.4 H PLT (test code = 777-3) See_Comment [Automated messa ge] The system which generated this result transmitted reference range: 150 - 328 10*3/?L. The reference range was not used to interpret this result as normal/abnormal. MPV (test code = 93783-1) 10.9 fL 9.8-13.0 NRBC/100 WBC (test code = 6099688451) See_Comment [Automated [employer] ssage] The system which generated this result transmitted reference range: 0.0 - 10.0 /100 WBCs. The reference range was not used to interpret this result as normal/abnormal. NRBC x10^3 (test code = 3231750654) <0.01 See_Comment [Automated messa ge] The system which generated this result transmitted reference range: 10*3/?L. The reference range was not used to interpret this result as normal/abnormal. GRAN MAT (NEUT) % (test code = 770-8) 51.0 % IMM GRAN % (test code = 8331979962) 0.20 % LYMPH % (test code = 736-9) 33.6 % MONO % (test code = 5905-5) 13.8 % EOS % (test code = 713-8) 0.9 % BASO % (test code = 706-2) 0.5 % GRAN MAT x10^3(ANC) (test code = 5413205167) 2.26 10*3/uL 1.99-6.95 IMM GRAN x10^3 (test code = 7732316180) <0.03 0.00-0.06 LYMPH x10^3 (test code = 731-0) 1.49 10*3/uL 1.09-3.23 MONO x10^3 (test code = 742-7) 0.61 10*3/uL 0.36-1.02 EOS x10^3 (test code = 711-2) 0.04 10*3/uL 0.06-0.53 L BASO x10^3 (test code = 704-7) <0.03 0.01-0.09 Lab Interpretation (test code = 21953-3) Abnormal [facility]2021-04-01 03:42:00* Test Item Value Reference Range Interpretation Comme nts POCT GLU (test code = 0290950986) 107 mg/dL 70-110 Lab Interpretation (test cod e = 10786-2) Normal [facility] (NA, K, CL, CO2, GLUCOSE, BUN, CREATININE, CA)2021-04-01 03:23:24* Test Item Value Reference Range Interpretation Comme [facility] NA (test code = 1156887610) 135 mmol/L 135-145 K (test code = 9220558183) 3.7 mmol/L 3.5-5.0 CL (test code = 6440799106) 107 mmol/L 98-108 CO2 TOTAL (test code = 5253133711) 14 mmol/L 23-31 L AGAP (test code = 1840735074) 2-16 BUN (test code = 9783526969) 42 mg/dL 7-23 H GLUCOSE (test code = 4624387127) 117 mg/dL 70-110 H CREATININE (test code = 0305176416) 1.65 mg/dL 0.60-1.25 H CALCIUM (test code = 1127265535) 7.7 mg/dL 8.6-10.6 L eGFR (test code = 7747902512) mL/min/1.73m2 SHILPI (test code = SHILPI) Association [...] imaging tests). Lab Interpretation (test code = 77660-4) Abnormal [facility] WITH [id number] 03:04:00* Test Item Value Reference Range Interpretation Comme nts WBC (test code = 6690-2) See_Comment [Automated [employer]] The system which generated this result transmitted reference range: 4.20 - 10.70 10*3/?L. The reference range was not used to interpret this result as normal/abnormal. RBC (test code = 789-8) See_Comment L [Automated [employer]] The system which generated this result transmitted [...] 31.2 g/dL 31.2-35.0 RDW-SD (test code = 49935-6) 43.8 fL 38.5-51.6 RDW-CV (test code = 788-0) 17.0 % 12.1-15.4 H PLT (test code = 777-3) See_Comment [Automated [employer] ge] The system which generated this result transmitted reference range: 150 - 328 10*3/?L. The reference range was not used to interpret this result as normal/abnormal. MPV (test code = 79458-2) 9.2 fL 9.8-13.0 L NRBC/100 WBC (test code = 9001033098) See_Comment [Automated [employer] ssage] The system which generated this result transmitted reference range: 0.0 - 10.0 /100 WBCs. The reference range was not used to interpret this result as normal/abnormal. NRBC x10^3 (test code = 8992095962) <0.01 See_Comment [Automated [employer] ge] The system which generated this result transmitted reference range: 10*3/?L. The reference range was not used to interpret this result as normal/abnormal. GRAN MAT (NEUT) % (test code = 770-8) 69.7 % IMM GRAN % (test code = 5959741978) 0.20 % LYMPH % (test code = 736-9) 17.1 % MONO % (test code = 5905-5) 12.6 % EOS % (test code = 713-8) 0.2 % BASO % (test code = 706-2) 0.2 % GRAN MAT x10^3(ANC) (test code = 3128554528) 3.21 10*3/uL 1.99-6.95 IMM GRAN x10^3 (test code = 4627607562) <0.03 0.00-0.06 LYMPH x10^3 (test code = 731-0) 0.79 10*3/uL 1.09-3.23 L MONO x10^3 (test code = 742-7) 0.58 10*3/uL 0.36-1.02 EOS x10^3 (test code = 711-2) <0.03 0.06-0.53 L BASO x10^3 (test code = 704-7) <0.03 0.01-0.09 Lab Interpretation (test code = 91720-6) Abnormal [facility] History and Physical Notes Date/Time Note Provider Source 2024-06-05 09:20:25 UROLOGY HISTORY AND PHYSICAL NOTE Date of Service: 06/05/2024 Chief Complaint: LUTS History of Present Illness: Lillie Hudson is a 79 year old male [...] failure, stones recurrent infection, and need for oil heaterman catheter) CIC, surgical options: TURP, ThuLVP to alleviate the obstruction and attempt improve LUTS and avoid risk of complications from skilled nursing [facility]. Possible adverse events recognized with TURP [...] OR today for TURP Emma Stevens MD [facility] Procedure Notes Date/Time Note Provider Source 2024-06-05 09:25:10 Operative Report Preoperative Diagnosis: LUTS refractory to medical therapy, CT prostate size 26 cc Postoperative Diagnosis: LUTS , obstructive enlarged prostate Procedure Performed: Cystoscopy, transurethral resection of prostate CPT 00336 Attending Physician: Emma Stevens Anesthesia: General Estimated [...] Care: Home later today Emma Stevens MD [facility] Notes Date/Time Note Provider Source 2024-06-06 20:22:47 [...] cardiac emergency. Soham Vang MD Urology Resident [facility] 2024-06-06 20:08:50 Lillie Hudson is a 79 year old male Patient called regarding experiencing swelling in feet that began today. Was wanting to go over with a provider regarding the symptoms and to be advise. Patient had Procedure: TRANSURETHRAL PROSTATE RESECTION 06/05/24 Called continuous improvement black belt Urology provider Dr. Vang: 20:03 Connected: 20:05 [facility] Bang Faustin [facility] 2024-06-05 13:22:20 IPP 07/11/2024 [facility] 2024-06-05 12:12:52 CALLED AND UPDATED PT'S DAUGHTER, REENA, AT 1213 - [address]. EL Kraft RN [facility] 2024-06-05 09:33:40 Addended by: EMMA STEVENS on: 06/05/2024 09:33 AM Modules accepted: Orders [facility] 2024-06-04 09:45:29 Spoke with patient and reinforced medication instructions. Verbalized understanding and teach-back performed. [facility] 2024-06-04 08:45:00 Images from the original note were not included. Only blood per pt request Venipuncture collection performed by clean technique on the left anticubitus. Total of 1 attempts were made. Slight pressure and a bandage/dressing were applied to the site(s). The patient experienced no complications. The following specimens were processed according to instructions and sent to [facility] laboratories per lab order on 06/04/2024 : LT BLUE SST 1 RED LAV 1 PPT DK GREEN (LiHep) DK GREEN (SodH) KAHN DK BLUE (K2) DK BLUE (S) ACD Blood Culture NIPT/NTD [facility] 2024-06-03 10:33:01 Images from the original note were not included. Your procedure is at [facility] on 06/05/24. The address is [address] [place] [address], [id number]. [facility] nursing staff will call you the workday [...] voiced no further questions at this time. [facility] 2024-05-26 11:30:00 Images from the original note were not included. Patient has been identified by and name and was provided with cup, antiseptic towelette, and clean catch instructions. 1 urine specimen(s) sent. Unpreserved Urine Culture 1 Aptima tube Other urine UX only [facility] 2024-05-26 11:04:49 Called patient, asked that he report to the lab today 05/26/24 to give Ucx prior to procedure scheduled 06/05/24. Patient voiced understanding. Order for Ucx placed. [facility] 2024-05-26 11:04:47 ----- Message from Emma Stevens sent at 05/23/2024 3:50 PM [facility] ----- Please follow up to submit Ucx next week, scheduled for TURP 06/05/2024 Thanks [facility] 2024-05-14 10:07:11 UROLOGY POST-PROCEDURE CALL Procedure: Cystourethroscopy [...] call: yes Knowledge of post-procedure instructions: yes [facility] Caity Hernandez RN [facility] 2024-05-13 10:06:26 Reviewed presurgical instructions for Transurethral resection of the prostate (TURP), [facility] preop booklet and bowel prep. Patient verbalized understanding of all instructions and received copies for review at home. Surgery date to be coordinated with outpatient procedural coordinator, PCP clearance request faxed to Dr Judson Kendall at [facility] . FAX # [phone] TURP scheduled for 06/05/24. Pt was instructed to obtain labs 10 days prior. Pt will require a phone call reminder once PCP clearance has been received . [facility] Shaniqua Nava MA [facility] 2024-05-12 11:00:00 Images from the original note were not included. Patient has been identified by and was provided with cup, antiseptic towelette, and clean catch instructions. 1 urine specimen(s) sent. Unpreserved Urine Culture 1 Aptima tube Other urine ROLLER INSTRUCTOR [facility] 2024-05-09 11:51:46 Patient contacted office stating he [...] other urology team members. EL Daugherty RN [facility] 2024-05-08 12:10:14 Patient agreed to pickling solution maker RX for Cipro from a local pharmacy. [facility] EL [place] MA [facility] 2024-05-08 11:50:14 Addended by: MCKAYLA HILL MA on: 05/08/2024 11:50 AM Modules accepted: Orders EL Hill MA [facility] 2024-05-08 11:12:05 Patient notified. States he has not received medication ( it is a mail out with [facility]) does not want medication sent to a local pharmacy as [facility] will not cover it. Notified patient I would reach out to the pharmacy to see when medication would be delivered. Instructed that if medication is not received in time to take prior to cysto his procedure may be rescheduled. Patient verbalized understanding. EL Stewart RN [facility] 2024-05-06 16:54:17 UTI Plan Oral abx Ucx 05/09/2024 RTC as scheduled 05/13/2024 with pre procedure UA and IM [facility] 2024-05-02 11:45:00 Images from the original note were not included. Patient has been identified by and was provided with cup, antiseptic towelette, and clean catch instructions. 1 urine specimen(s) sent. Unpreserved Urine Culture 1 Aptima tube Other urine [facility] 2024-04-25 08:37:37 Patient is scheduled for cysto 05/13/23 and will need urine culture preop. Lab order placed at this time. [facility] 2024-04-15 11:15:00 Images from the original note were not included. Venipuncture collection performed by clean technique on the left anticubitus. Total of 1 attempts were made. Slight pressure and a bandage/dressing were applied to the site(s). The patient experienced no complications. The following specimens were processed according to instructions and sent to [facility] laboratories per lab order on 04/15/2024 : LT BLUE SST 1 RED LAV PPT DK GREEN (LiHep) DK GREEN (SodH) KAHN DK BLUE (K2) DK BLUE (S) ACD Blood Culture NIPT/NTD [facility] 2023-12-12 13:57:33 See TE 12/10/23 A Stewart RN [facility] 2023-12-12 13:56:50 Attempted to contact patient with no answer, Voicemail left at this time with clinic phone number and instructed patient to return call. Janna Stewart RN [facility] 2023-12-11 13:26:15 Lillie Hudson is a 78 year old male that is returning [employer]'s call. Please advise. Blanca Ward [facility] 2023-12-11 13:05:13 Attempted to contact patient with no answer, Voicemail left at this time with clinic phone number and instructed patient to return call. Janna Stewart RN [facility] 2023-12-11 12:57:16 Its not Needs oral laxatives and see PCP URO-UROLOGY STAFF [facility] 2023-12-10 13:14:53 Please advise Kelly Puentes [facility] 2023-12-10 11:39:47 Lillie Hudson is a 78 year old male Patient called and stated he has been having issues with the medication alfuzosin 10 mg 24 hr tablet - has been constipated for 2 weeks. He is wanting to speak with provider. He is wanting to know if he needs to be seen. His PCP prescribed him laxative as well. Please advise. Manisha Fatima [facility] 2023-05-14 11:04:59 Spoke with patient, [facility] through [facility] order. Patient denies any concerns/ questions at this time. [facility] 2023-05-14 10:51:30 Attempted to contact patient with no answer, Voicemail left at this time with clinic phone number and instructed patient to return call. [facility] 2023-05-11 16:11:38 I do not have a voucher available in clinic he may be able to find one online [facility] 2023-05-11 14:48:32 Attempted to contact patient with no answer, Voicemail left at this time with clinic phone number and instructed patient to return call. [facility] 2023-05-10 08:42:02 Lillie Hudson is a 77 year old male [...] Provider alfuzosin 10 mg 24 hr tablet [facility] phone number [phone] [address] [place] [address] [place] [facility]
[2024-06-07 12:43] LABS: Absolute Eosinophils 0.2 K/uL (0-0.5); Absolute Lymphocytes (CBC) 2.2 K/uL (0.7-4.9); Absolute Monocytes 1.1 K/uL (0.1-1.3); Absolute Neutrophil 5.4 K/uL (1.8-8.0); Basophils % 0.5 % (0-1.3); Hematocrit 40.5 % (39.6-49.0); Hemoglobin 13.8 g/dL (13.6-17.9); Lymphocytes % 24.5 % (15.3-44.8); MCH 31.8 pg (27.0-35.0); MCV 93.5 fL (80-100); MPV 8.4 fL (7.6-11.3); Monocytes % 12.4 % (3.3-12.3); Neutrophils % 60.6 % (41.7-73.7); Platelets 138 thou/uL (152-406); RBC Red Blood Cell Count 4.34 M/uL (4.33-5.43); Red Cell Distribution Width 14.4 % (12.1-15.2)
[2024-06-07 12:52] LABS: PT Prothrombin Time 11.7 SECONDS (10.0-13.0); Protime INR 1.03
[2024-06-07 13:04] LABS: Albumin 3.8 g/dL (3.4-5.0); Albumin/Globulin Ratio 0.9 (1.1-1.8); Anion Gap 11.3 mEq/L (5.0-15.0); Bilirubin Direct 0.3 mg/dL (0-0.2); Bilirubin Indirect, Calculated 0.4 mg/dL (0.2-0.8); Bilirubin Total 0.7 mg/dL (0.2-1.0); Globulin 4.3 g/dL (2.3-3.5); Magnesium 1.5 mg/dL (1.6-2.4); Potassium 3.3 mEq/L (3.5-5.1); Protein, Total 8.1 g/dL (6.4-8.2); Troponin High Sensitivity 23.6 pg/mL (<58.9)
--- NOTE | 2024-06-07 13:37 | ER ---
Nurse's Notes [facility] Name: Abdoul Hudson Age: 79 yrs Sex: Male : 1945 Arrival Date: 06/07/2024 Time: 11:08 Bed 9 Private MD: Diagnosis: Edema, unspecified;Hypomagnesemia;Hypokalemia Presentation: 06/07 11:34 Chief complaint: Patient states: he is having continued bilateral lower extremity ap3 swelling post prostate procedure 06/05/24. patient was evaluated in the ED last night. Coronavirus screen: At this time, the client does not indicate any symptoms associated with coronavirus-19. Ebola Screen: No symptoms or risks identified at this time. Initial Sepsis Screen: Does the patient meet any 2 criteria? No. Patient's initial sepsis screen is negative. Does the patient have a suspected source of infection? No. Patient's initial sepsis screen is negative. Risk Assessment: Do you want to hurt yourself or someone else? Patient reports no desire to harm self or others. Onset of symptoms was June 06, 2024. 11:34 Method Of Arrival: Wheelchair ap3 11:34 Acuity: MARICRUZ 3 ap3 Triage Assessment: 11:35 General: Appears in no apparent distress. Behavior is calm, cooperative, appropriate ap3 for age. Pain: Complains of pain in right foot and left foot. Neuro: Level of Consciousness is awake, alert, obeys commands, Oriented to person, place, time, situation, Appropriate for age Speech is normal. Cardiovascular: Patient's skin is warm and dry. Respiratory: Airway is patent Respiratory effort is even, unlabored, Respiratory pattern is regular, symmetrical. Musculoskeletal: Swelling present in right foot and left foot. Historical: - Allergies: 11:35 PENICILLINS; ap3 11:35 shrimp; ap3 - PMHx: 11:35 Anxiety; carpal tunnel; diabetes mellitus; GERD; Hypertensive disorder; PTSD; ap3 Hypercholesterolemia; - PSHx: 11:35 Appendectomy; Cholecystectomy; ap3 - Immunization history:: Client reports having NOT received the Covid vaccine. Flu vaccine is up to date. - Infectious Disease History:: Denies. - Social history:: Smoking status: Patient denies any tobacco usage or history of. Screenin:36 [facility] ED Fall Risk Assessment (Adult) History of falling in the last 3 months, ap3 including since admission Yes- single mechanical fall (1 pt) Confusion or Disorientation No (0 pts) Intoxicated or Sedated No (0 pts) Impaired Gait No (0 pts) Mobility Assist Device Used No (0 pt) Altered Elimination No (0 pt) Score/Fall Risk Level 0 - 2 = Low Risk Oriented to surroundings, Maintained a safe environment, Educated pt \T\ family on fall prevention, incl call for assistance when getting out of bed, Assessed \T\ reinforced patient's understanding of fall precautions, Hourly rounding (assess needs \T\ fall precautionary measures) done, Used ambulatory aids as needed (educated on \T\ assisted with). Abuse screen: Denies threats or abuse. Nutritional screening: No deficits noted. Tuberculosis screening: No symptoms or risk factors identified. Assessment: 13:46 Reassessment: Pt will be discharged after infusion. jl7 Vital Signs: 11:34 BP 148 / 77; Pulse 71; Resp 18; Temp 98.8; Pulse Ox 96% ; Weight 79.38 kg; Height 5 ft. ap3 9 in. ; Pain 5/10; 14:53 BP 142 / 72; Pulse 70; Resp 15; Pulse Ox 96% ; jl7 11:34 Body Mass Index 25.84 (79.38 kg, 175.26 cm) ap3 11:34 Pain Scale: Adult ap3 Yonis Coma Score: 13:34 Eye Response: spontaneous(4). Motor Response: obeys commands(6). Verbal Response: dasha oriented(5). Total: 15. ED Course: 11:13 Patient arrived in ED. cj3 11:20 Soham Han MD is Attending Physician. dasha 11:35 Triage completed. ap3 11:37 Arm band placed on left wrist. ap3 12:31 Jairo Verdugo RN is Primary Nurse. jl7 12:38 Initial lab(s) drawn, by me, sent to lab. Inserted saline lock: 20 gauge in left hb forearm, using aseptic technique. Blood collected. Flushed with 10 mL NS. 13:20 XRAY Chest (1 view) In Process Unspecified. EDMS 13:36 Carmine Lundberg MD is Referral Physician. dasha 14:00 Patient has correct armband on for positive identification. Bed in low position. Call jl7 light in reach. Side rails up X 1. Provided Education on: us of call earl. 14:53 No provider procedures requiring assistance completed. IV discontinued, intact, jl7 bleeding controlled, No redness/swelling at site. Pressure dressing applied. Administered Medications: 13:54 Drug: Magnesium Sulfate IVPB 2 grams IVPB once over 1 hrs Route: IVPB; Infused Over: 1 jl7 hrs; Site: left forearm; 14:52 Follow up: Response: No adverse reaction; IV Status: Completed infusion jl7 14:25 Drug: Potassium PO Effervescent Tablet 50 mEq PO once; dissolve in 4 ounces of water or jl7 juice Route: PO; 14:52 Follow up: Response: No adverse reaction jl7 Medication: 14:53 VIS not applicable for this client. jl7 Outcome: 13:37 Discharge ordered by . dasha 14:53 Discharged to home ambulatory, jl7 14:53 Condition: stable 14:53 Discharge instructions given to patient, family, Instructed on discharge instructions, follow up and referral plans. Demonstrated understanding of instructions, follow-up care, 14:54 Patient left the ED. jl7 Signatures: Dispatcher [employer] EDSoham Victor MD MD cha Baxter, Heather, RN RN Jairo Moore RN RN jl7 Bertha Bell RN RN ap3 Johnson, Celeste 3
--- NOTE | 2024-06-07 13:37 | EDPHYS ---
Physician Documentation [facility] Name: Abdoul Hudson Age: 79 yrs Sex: Male : 1945 Arrival Date: 06/07/2024 Time: 11:08 Bed 9 Private MD: FRANK Physician Soham Han HPI: 06/07 13:33 This 79 yrs old Male presents to ER via Wheelchair with complaints of Swelling dasha of Lower Extremity. 13:33 The patient presents with pain, swelling. The complaints affect the right foot, left dasha foot, right leg and left leg. Context: The problem was sustained at home, resulted from an unknown cause, the patient can fully bear weight. Onset: The symptoms/episode began/occurred 2 day(s) ago. Modifying factors: The symptoms are alleviated by elevating leg, the symptoms are aggravated by movement. Associated signs and symptoms: The patient has no apparent associated signs or symptoms. Severity of symptoms: At their worst the symptoms were mild, moderate, in the emergency department the symptoms are unchanged. The patient has not experienced similar symptoms in the past. Historical: - Allergies: 11:35 PENICILLINS; ap3 11:35 shrimp; ap3 - PMHx: 11:35 Anxiety; carpal tunnel; diabetes mellitus; GERD; Hypertensive disorder; PTSD; ap3 Hypercholesterolemia; - PSHx: 11:35 Appendectomy; Cholecystectomy; ap3 - Immunization history:: Client reports having NOT received the Covid vaccine. Flu vaccine is up to date. - Infectious Disease History:: Denies. - Social history:: Smoking status: Patient denies any tobacco usage or history of. ROS: 13:34 Constitutional: Negative for fever, chills, and weight loss, Eyes: Negative for injury, dasha pain, redness, and discharge, ENT: Negative for injury, pain, and discharge, Neck: Negative for injury, pain, and swelling, Cardiovascular: Negative for chest pain, palpitations, and edema, Respiratory: Negative for shortness of breath, cough, wheezing, and pleuritic chest pain, Abdomen/GI: Negative for abdominal pain, nausea, vomiting, diarrhea, and constipation, Back: Negative for injury and pain, : Negative for injury, bleeding, discharge, and swelling, Skin: Negative for injury, rash, and discoloration, Neuro: Negative for headache, weakness, numbness, tingling, and seizure, Psych: Negative for depression, anxiety, suicide ideation, homicidal ideation, and hallucinations, Allergy/Immunology: Negative for hives, rash, and allergies, Endocrine: Negative for neck swelling, polydipsia, polyuria, polyphagia, and marked weight changes, Hematologic/Lymphatic: Negative for swollen nodes, abnormal bleeding, and unusual bruising, 13:34 MS/extremity: Positive for pain, swelling, of the right leg and left leg, Exam: 13:34 Constitutional: This is a well developed, well nourished patient who is awake, alert, dasha and in no acute distress. Head/Face: Normocephalic, atraumatic. Eyes: Pupils equal round and reactive to light, extra-ocular motions intact. Lids and lashes normal. Conjunctiva and sclera are non-icteric and not injected. Cornea within normal limits. Periorbital areas with no swelling, redness, or edema. ENT: Nares patent. No nasal discharge, no septal abnormalities noted. Tympanic membranes are normal and external auditory canals are clear. Oropharynx with no redness, swelling, or masses, exudates, or evidence of obstruction, uvula midline. Mucous membranes moist. Neck: Trachea midline, no thyromegaly or masses palpated, and no cervical lymphadenopathy. Supple, full range of motion without nuchal rigidity, or vertebral point tenderness. No Meningismus. Chest/axilla: Normal chest wall appearance and motion. Nontender with no deformity. No lesions are appreciated. Cardiovascular: Regular rate and rhythm with a normal S1 and S2. No gallops, murmurs, or rubs. Normal PMI, no JVD. No pulse deficits. Respiratory: Lungs have equal breath sounds bilaterally, clear to auscultation and percussion. No rales, rhonchi or wheezes noted. No increased work of breathing, no retractions or nasal flaring. Abdomen/GI: Soft, non-tender, with normal bowel sounds. No distension or tympany. No guarding or rebound. No evidence of tenderness throughout. Back: No spinal tenderness. No costovertebral tenderness. Full range of motion. Male : Normal genitalia with no discharge or lesions. Skin: Warm, dry with normal turgor. Normal color with no rashes, no lesions, and no evidence of cellulitis. Neuro: Awake and alert, GCS 15, oriented to person, place, time, and situation. Cranial nerves II-XII grossly intact. Motor strength 5/5 in all extremities. Sensory grossly intact. Cerebellar exam normal. Normal gait. Psych: Awake, alert, with orientation to person, place and time. Behavior, mood, and affect are within normal limits. 13:34 Musculoskeletal/extremity: Extremities: all appear grossly normal, with no appreciated pain with palpation, ROM: intact in all extremities, full active range of motion, full passive range of motion, Circulation is intact in all extremities. Sensation intact. Compartment Syndrome exam of affected extremity: is normal. Joints: All joints appear normal with full range of motion. Weight bearing: able to fully bear weight, Tendon exam: specific tendon testing normal through active and passive range of motion DVT Exam: negative Homans' sign noted on exam, no appreciated bluish discoloration, no erythema, no increased warmth, pain, swelling, tenderness, 14:07 ECG was reviewed by the Attending Physician. [facility] Vital Signs: 11:34 BP 148 / 77; Pulse 71; Resp 18; Temp 98.8; Pulse Ox 96% ; Weight 79.38 kg; Height 5 ft. ap3 9 in. ; Pain 5/10; 14:53 BP 142 / 72; Pulse 70; Resp 15; Pulse Ox 96% ; jl7 11:34 Body Mass Index 25.84 (79.38 kg, 175.26 cm) ap3 11:34 Pain Scale: Adult ap3 Yonis Coma Score: 13:34 Eye Response: spontaneous(4). Motor Response: obeys commands(6). Verbal Response: [facility] oriented(5). Total: 15. MDM: 11:20 Medical Screening Exam initiated [facility] 13:38 Differential diagnosis: contusion, tendonitis. Data reviewed: vital signs, nurses [facility] notes, lab test result(s), EKG, radiologic studies, doppler, plain films. Consideration of Admission/Observation Escalation of care including admission/observation considered. I considered the following discharge prescriptions or medication management in the emergency department Medications were administered in the Emergency Department. See MAR. Independent interpretation of the following test(s) in the Emergency Department Radiology Department Ultrasound: My interpretation is NO DVT. Test considered but Not performed: MRI: NO MRI. Historians other than the Patient: Daughter/Son: SON WELL INFORMED. Care significantly affected by the following chronic conditions: Diabetes, Hypertension, ANXIETY, GERD, BPH, PTSD. 06/07 11:20 Order name: Basic Metabolic Panel; Complete Time: 13:32 [facility] 06/07 11:20 Order name: CBC with Diff; Complete Time: 13:32 [facility] 06/07 11:20 Order name: LFT's; Complete Time: 13:32 [facility] 06/07 11:20 Order name: Magnesium; Complete Time: 13:32 [facility] 06/07 11:20 Order name: NT PRO-BNP; Complete Time: 13: [facility] 06/07 11:20 Order name: PT-INR; Complete Time: 13:32 [facility] 06/07 11:20 Order name: Troponin HS; Complete Time: 13:32 [facility] 06/07 11:20 Order name: Lipase; Complete Time: : [facility] 06/07 11:20 Order name: XRAY Chest (1 view) [facility] 06/07 11:20 Order name: Cardiac monitoring; Complete Time: 12:40 [facility] 06/07 11:20 Order name: EKG - Nurse/Tech; Complete Time: 12:40 [facility] 06/07 11:20 Order name: IV Saline Lock; Complete Time: 12:40 [facility] 06/07 11:20 Order name: Labs collected and sent; Complete Time: 12:40 [facility] 06/07 11:20 Order name: O2 Per Protocol; Complete Time: 12:40 [facility] 06/07 11:20 Order name: O2 Sat Monitoring; Complete Time: 12:40 [facility] EC:07 Rate is 65 beats/min. Rhythm is regular. QRS [place] is Normal. HI interval is normal. QRS dasha interval is normal. QT interval is normal. No Q waves. T waves are Normal. No ST changes noted. Clinical impression: Normal ECG and No evidence of ischemia. Interpreted by me. Reviewed by me. Administered Medications: 13:54 Drug: Magnesium Sulfate IVPB 2 grams IVPB once over 1 hrs Route: IVPB; Infused Over: 1 jl7 hrs; Site: left forearm; 14:52 Follow up: Response: No adverse reaction; IV Status: Completed infusion jl7 14:25 Drug: Potassium PO Effervescent Tablet 50 mEq PO once; dissolve in 4 ounces of water or jl7 juice Route: PO; 14:52 Follow up: Response: No adverse reaction jl7 Disposition Summary: 06/07/24 13:37 Discharge Ordered Notes: Location: Home dasha Problem: new dasha Symptoms: have improved dasha Condition: Stable dasha Diagnosis - Edema, unspecified dasha - Hypomagnesemia dasha - Hypokalemia dasha Followup: dasha - With: Private Physician - When: 2 - 3 days - Reason: Recheck today's complaints, Continuance of care, Re-evaluation by your physician Followup: dasha - With: Carmine Lundberg MD - When: 2 - 3 days - Reason: Recheck today's complaints, Re-evaluation by your physician Discharge Instructions: - Discharge Summary Sheet dasha - Potassium Content of Foods dasha - Edema dasha - Hypomagnesemia dasha - Edema, Sgaf-[id number] dasha - Hypokalemia dasha - Peripheral Edema dasha Forms: - Medication Reconciliation Form dasha - Antibiotic Education dasha - Prescription Opioid Use dasha - Patient Portal Instructions dasha - Leadership Thank You Letter dasha Signatures: Dispatcher [employer] EDSoham Victor MD MD cha Leal, Jahala RN RN jl7 Bertha Bell RN RN ap3 Corrections: (The following items were deleted from the chart) 11:21 11:21 BASIC METABOLIC PANEL+C.LAB.BRZ ordered. EDNH EDMS 11: 11:21 CBC+H.LAB.BRZ ordered. EDNH EDMS 11:21 11:21 HEPATIC FUNCTION+C.LAB.BRZ ordered. EDNH EDNH 11:21 11:21 MAGNESIUM+C.LAB.BRZ ordered. EDNH EDNH 11:21 11:21 PROBNP+C.LAB.BRZ ordered. EDNH EDNH 11:21 11:21 PROTIME (+INR)+COAG.LAB.BRZ ordered. EDNH EDNH 11:21 11:21 Troponin High Sensitivity+C.LAB.BRZ ordered. EDNH EDMS 11:21 11:21 LIPASE+C.LAB.BRZ ordered. ED[facility] EDMS 11:21 11:21 Chest Single View+RAD.RAD.BRZ ordered. EDNH EDMS 11:21 11:21 Extrem Venous W Compression Mark+US.RAD.BRZ ordered. ED[facility] EDMS 14:12 11:21 Urinalysis+U.LAB.BRZ ordered. EDNH EDMS
--- NOTE | 2024-06-07 13:40 | RAD REPORT ---
EXAMINATION: ONE VIEW CHEST XR CLINICAL INDICATION: Male, 79 years old.,DYSPNEA TECHNIQUE: Frontal chest projection is submitted. Examination is limited by patient positioning and t echnique. COMPARISON: 10/18/2023 FINDINGS: The lungs are well inflated and clear. No pneumothorax or sizable effusion. The heart is normal in s ize. Mediastinal contours are unremarkable. IMPRESSION: No acute intrathoracic abnormalities.
[2024-06-07] MEDS ORDERED: Magnesium Sulfate 2gm IVPB 2 G/50 ML BAG IV ONE (13:49)
[2024-06-07] MEDS ORDERED: POTASSIUM 25 MEQ EFFERV TAB ONE (13:49)
[2024-06-07 16:28] VITALS: TEMP 98.8; O2SAT 96
[2024-06-07 16:30] VITALS: BP 142/72
--- NOTE | 2024-06-09 12:02 | EKG ---
Test Date: 2024-06-07 Test Time: 12:38:50 [employer] Porter: [place] MEASUREMENT RESULTS: Intervals: Rate: 65 WY: 160 QRSD: 98 QT: 396 QTc: 411 Dexter: P: 22 WY: 160 QRS: 55 T: 31 INTERPRETIVE STATEMENTS: Normal sinus rhythm Normal ECG Compared to ECG 10/18/2023 16:36:55 Myocardial infarct finding no longer present Electronically Signed On 06-09-24 11:59:27 [employer]EL STITCHER by Maurilio Hernandez
== END 2024-06-07 14:54 | disposition home or self-care (01) ==
LOC: ER 11:08
DX: R60.9 Edema, unspecified (principal); E83.42 Hypomagnesemia; E87.6 Hypokalemia
CPT/HCPCS: 96365; 93005; 85025; 80048; 36415; 83735; 85610; 80076; 84484; 83690; 83880; 71045; 99284; J3475